=== PATIENT | female | born 1975 | race Caucasian/White ===

== ENCOUNTER 2017-01-20 09:11 | Emergency (ER) | payer OTHER ==
[2017-01-20 09:14] VITALS: BP 122/77; PULSE 87; TEMP 97.1
[2017-01-20 09:26] VITALS: RESP 16
[2017-01-20] MEDS ORDERED: IBUPROFEN 600 MG TAB PO STA (09:43)
--- NOTE | 2017-01-20 09:46 | ED ---
Headache HPI - General Chief Complaint: Headache Stated Complaint: headache Time Seen by Provider: 01/20/17 09:24 Source: RN notes reviewed Mode of arrival: ambulatory Limitations: no limitations - History of Present Illness Initial Comments: Patient is a 41-year-old female presents to the emergency room for evaluation of headache. Patient states she has had a headache for the past 4 days. Patient does states she is very congested. Patient states she is having a pressure-like sensation in her forehead. Patient denies loss of vision. Patient denies ear pain. Patient denies ringing in her ears. Patient denies throat pain. Patient denies chest pain or cough. Patient states she takes ALLERGY medication daily and decongestants with no relief of symptoms. Patient denies fevers or chills. Patient states saying 8 out of 10 headache. Patient denies taking any Tylenol or Motrin. Patient denies paresthesias. Patient denies weakness or unilateral weakness. Patient denies nausea or vomiting. - Related Data Previous Rx's Medication Instructions Recorded Cyclobenzaprine [Flexeril] 10 mg PO TID PRN #15 tab 06/06/16 Hydrocodone/Acetaminophen [Butler 1 tab PO Q6HR PRN #20 tab 06/06/16 5-325] methylPREDNISolone [Medrol Dose 4 mg PO DIRECTED #1 pack 06/06/16 Pack] Amoxicillin/Potassium Clav 1 each PO Q12HR #20 tab 01/20/17 [Augmentin 875-125 Tablet] methylPREDNISolone Dose Pack 4 mg PO DIRECTED #21 package 01/20/17 [Medrol Dose Pack] Allergies Allergy/AdvReac Type Severity Reaction Status Date / Time prochlorperazine Allergy Unknown Verified 01/20/17 09:14 [From Compazine] Review of Systems ROS Statement: Those systems with pertinent positive or pertinent negative responses have been documented in the HPI. ROS Other: All systems not noted in ROS Statement are negative. Past Medical History Past Medical History: Asthma Additional Past Medical History / Comment(s): bulging discs History of Any Multi-Drug Resistant Organisms: None Reported Past Surgical History: Appendectomy, Orthopedic Surgery, Tubal Ligation Additional Past Surgical History / Comment(s): d & c bunionectomy Past Psychological History: Depression Smoking Status: Never smoker Past Alcohol Use History: None Reported Past Drug Use History: None Reported General Exam - General Exam Comments Initial Comments: sitting in exam room, no acute distress. Limitations: no limitations General appearance: alert, in no apparent distress Head exam: Present: atraumatic, normocephalic, normal inspection Eye exam: Present: normal appearance, PERRL, EOMI Pupils: Present: normal accommodation ENT exam: Present: TM's normal bilaterally, normal external ear exam, other ( tenderness on palpating over frontal sinus and bilateral maxillary sinusitis) Expanded Mouth exam: Present: normal external inspection Teeth exam: Present: normal inspection Throat exam: normal inspection Course Vital Signs 01/20/17 01/20/17 09:12 09:21 Temperature 97.1 F L Pulse Rate 87 Respiratory 18 16 Rate Blood Pressure 122/77 O2 Sat by Pulse 95 Oximetry Medical Decision Making - Medical Decision Making Patient is a 41-year-old female presents to emergency room for admission headache. Patient's symptoms consistent with sinus pressure like headache. Placed patient on Augmentin and Medrol Dosepak and have her follow up with primary care provider. Patient states she understands everything that was discussed with her. Return parameters discussed. Case discussed with Dr. Carlson. Disposition Clinical Impression: Sinusitis Disposition: HOME SELF-CARE Condition: Good Instructions: Rhinosinusitis (ED) Additional Instructions: Take antibiotics as directed. Take Medrol Dosepak as directed. Take ibuprofen as needed for pain. Continue taking decongestants and ALLERGY medications. Please follow up with primary care provider in 1-2 days. If any new symptom arises or symptoms worsen, return to ER as soon as possible. Prescriptions: Amoxicillin/Potassium Clav [Augmentin 875-125 Tablet] 1 each PO Q12HR #20 tab methylPREDNISolone Dose Pack [Medrol Dose Pack] 4 mg PO DIRECTED #21 package Referrals: Shakeel Ngo MD [Primary Care Provider] - 1-2 days Time of Disposition: 09:44
== END 2017-01-20 09:59 | disposition home or self-care (01) ==
LOC: EC 09:11
DX: J32.0 Chronic maxillary sinusitis (principal); Z88.8 Allergy status to other drugs, medicaments and biological substances
CPT/HCPCS: 99283

== ENCOUNTER → 2017-02-16 | Outpatient (CLI) | payer OTHER ==
--- NOTE | 2017-02-16 11:21 | CT ---
EXAMINATION TYPE: CT sinus wo con DATE OF EXAM: 02/16/2017 COMPARISON: NONE HISTORY: 42-year-old female headache and eye pain, evaluate for sinusitis. CT DLP: 578 mGycm Automated exposure control for dose reduction was used. TECHNIQUE: Noncontrast axial views of the paranasal sinuses were obtained. Coronal reconstructions pe rformed. FINDINGS: Mild mucosal thickening within the frontal sinuses. Near complete opacification of the anterior left ethmoid air cells, moderate mucosal thickening posteriorly left ethmoid air cells and mild to moderat e within the right ethmoid air cells. The sphenoid sinuses are clear. Mild to moderate mucosal thickening throughout the bilateral maxillary sinuses. Mucosal thickening extends throughout the left nasal cavity with rightward nasal septal deviation. There appears to be previous bilateral maxillary antrectomies. No air-fluid levels. Reactive geoffrey- osteogenesis is not seen. There is no destruction of the osseous smith of the paranasal sinuses. The imaged brain and orbits are normal in appearance. Mastoid air cells and middle ear cavities are well pneumatized. Reformatted images confirm above findings. IMPRESSION: 1. Suggestion of prior medial antrectomies with continued paranasal sinus disease. 2. There is severe mucosal thickening anterior left ethmoid air cells and mild to moderate throughout the remainder of the ethmoid air cells. Additional mild to moderate mucosal thickening within the ma xillary sinuses and mild within the frontal sinuses. 3. There is also moderate to severe mucosal thickening throughout the left nasal cavity along with sl ight rightward nasal septal deviation.
== END ==
LOC: RADCTMAIN 09:50
PROVIDERS: ATTEND Family Medicine
DX: J32.0 Chronic maxillary sinusitis (principal); J34.2 Deviated nasal septum
CPT/HCPCS: 70486

== ENCOUNTER 2017-05-19 10:38 | Emergency (ER) | payer OTHER ==
[2017-05-19] MEDS ORDERED: SODIUM CHLORIDE 0.9% 1,000 ML IV STA ×2 (10:57)
[2017-05-19] MEDS ORDERED: ACETAMINOPHEN TAB 500 MG TAB PO STA (10:57)
[2017-05-19] MEDS ORDERED: IPRATROPIUM 0.5 MG/2.5 ML NEBU INHALATION STA (11:04)
[2017-05-19] MEDS ORDERED: ALBUTEROL NEBULIZED 2.5 MG/3 ML INHALATION STA (11:04)
--- NOTE | 2017-05-19 11:08 | ED ---
General Adult HPI - General Chief complaint: Fever Stated complaint: POSS ADRENAL CRISIS Time Seen by Provider: 05/19/17 10:51 Source: patient, family, RN notes reviewed Mode of arrival: wheelchair Limitations: no limitations - History of Present Illness Initial comments: 42-year-old female with past medical history of lupus, asthma, remote history of adrenal crisis presents with multiple complaints. Patient complains of productive cough with green sputum. She reports fever yesterday of 102. She also has noted an abscess in her left axilla which has been worsening over the past week. This started as a small pimple and has progressed. There is significant pain and swelling in the area. Patient also complains of nausea vomiting and diarrhea. She's had these symptoms for the past 2 days. Several episodes of both vomiting and diarrhea. Denies constant abdominal pain does report some crampy abdominal pain. Patient was recently treated with steroids for an episode of hives. She is not currently on steroids per completed this treatment approximately one week ago. Patient also does report a mild headache. - Related Data Home Medications Medication Instructions Recorded Confirmed Cetirizine HCl [Zyrtec] 10 mg PO HS 05/19/17 05/19/17 Cholecalciferol [Vitamin D3] 4,000 unit PO HS 05/19/17 05/19/17 Mometasone/Formoterol [Dulera 200 2 puff INHALATION RT-BID 05/19/17 05/19/17 Mcg/5 Mcg Inhaler] Sertraline [Zoloft] 100 mg PO HS 05/19/17 05/19/17 Previous Rx's Medication Instructions Recorded Cephalexin [Keflex] 500 mg PO Q8HR #30 cap 05/19/17 Ondansetron Odt [Zofran Odt] 4 mg PO Q8HR PRN #10 tab 05/19/17 Sulfamethox-Tmp 800-160Mg [Bactrim 1 tab PO Q12HR #20 tab 05/19/17 DS 800-160 mg] Allergies Allergy/AdvReac Type Severity Reaction Status Date / Time prochlorperazine AdvReac Muscle Verified 05/19/17 11:13 [From Compazine] Spasms Review of Systems ROS Statement: Those systems with pertinent positive or pertinent negative responses have been documented in the HPI. ROS Other: All systems not noted in ROS Statement are negative. Past Medical History Past Medical History: Asthma Additional Past Medical History / Comment(s): bulging discs, lupus History of Any Multi-Drug Resistant Organisms: None Reported Past Surgical History: Appendectomy, Orthopedic Surgery, Tubal Ligation Additional Past Surgical History / Comment(s): d & c bunionectomy Past Psychological History: Depression Smoking Status: Never smoker Past Alcohol Use History: None Reported Past Drug Use History: None Reported General Exam Limitations: no limitations General appearance: alert, in distress Head exam: Present: atraumatic, normocephalic Eye exam: Present: normal appearance, PERRL ENT exam: Present: mucous membranes dry Respiratory exam: Present: wheezes, decreased breath sounds, prolonged expiratory. Absent: respiratory distress Cardiovascular Exam: Present: regular rate, normal rhythm GI/Abdominal exam: Present: soft. Absent: distended, tenderness, guarding Extremities exam: Present: normal inspection, normal capillary refill, other ( Left axilla, there is erythema, induration, swelling, no fluctuance. This is approximately 7 cm x 5 cm). Absent: pedal edema Neurological exam: Present: alert, oriented X3. Absent: motor sensory deficit Psychiatric exam: Present: normal affect, normal mood Skin exam: Present: warm, dry, intact. Absent: cyanosis, diaphoretic Course Vital Signs 05/19/17 05/19/17 05/19/17 10:42 10:45 11:52 Temperature 98.5 F Pulse Rate 93 90 Respiratory 20 Rate Blood Pressure 207/93 137/62 O2 Sat by Pulse 99 Oximetry 05/19/17 05/19/17 05/19/17 12:08 12:59 13:05 Temperature 97.9 F Pulse Rate 91 89 81 Respiratory 20 16 Rate Blood Pressure 123/65 115/57 O2 Sat by Pulse 98 96 Oximetry - Reevaluation(s) Reevaluation #1: 05/19/17 13:25 Patient's vital signs improved with IV hydration. On reevaluation she is feeling much better EKG Findings - EKG Comments: EKG Findings:: EKG shows normal sinus rhythm, ventricular rate 86, para over 114 , castration 88, QTC 437, no ST segment elevation or depression Medical Decision Making - Medical Decision Making 42-year-old female with history of asthma and lupus presenting with left axillary erythema and swelling. There is a area of swelling with induration, no fluctuance in the left axilla. This is approximately 7 x 5 cm. Bedside ultrasound is performed, is positive for soft tissue cobblestoning, no focal fluid collection, no drainable abscess. Patient also reported cough and nausea. Chest x-ray was obtained, negative for focal pneumonia. Urinalysis is negative for signs of urinary tract infection. Although there is history of fever, there is no fever while in the emergency department. On reevaluation after Tylenol and IV fluids patient is feeling better. Laboratory studies show a mildly elevated white blood cell count. Patient does have outpatient follow- up. She is instructed to apply warm compresses over the left axilla. She will be started on antibiotics for both staph and strep coverage. She will follow- up with her primary care within the next 2-3 days for reevaluation. She'll return to the emergency department with worsening symptoms, fever, or spreading of left axillary cellulitis. - Lab Data Result diagrams: 05/19/17 11:20 05/19/17 11:20 Lab Results 05/19/17 05/19/17 05/19/17 Range/Units 11:20 11:20 11:20 WBC 13.4 H (3.8-10.6) k/uL RBC 4.65 (3.80-5.40) m/uL Hgb 13.0 (11.4-16.0) gm/dL Hct 40.3 (34.0-46.0) % MCV 86.8 (80.0-100.0) fL MCH 28.0 (25.0-35.0) pg MCHC 32.3 (31.0-37.0) g/dL RDW 13.9 (11.5-15.5) % Plt Count 330 (150-450) k/uL Neutrophils % 75 % Lymphocytes % 13 % Monocytes % 7 % Eosinophils % 3 % Basophils % 0 % Neutrophils # 10.1 H (1.3-7.7) k/uL Lymphocytes # 1.8 (1.0-4.8) k/uL Monocytes # 0.9 (0-1.0) k/uL Eosinophils # 0.4 (0-0.7) k/uL Basophils # 0.1 (0-0.2) k/uL Sodium 137 (137-145) mmol/L Potassium 4.1 (3.5-5.1) mmol/L Chloride 107 (98-107) mmol/L Carbon Dioxide 21 L (22-30) mmol/L Anion Gap 9 mmol/L BUN 6 L (7-17) mg/dL Creatinine 0.56 (0.52-1.04) mg/dL Est GFR (MDRD) Af Amer >60 (>60 ml/min/1.73 sqM) Est GFR (MDRD) Non-Af >60 (>60 ml/min/1.73 sqM) Glucose 92 (74-99) mg/dL Plasma Lactic Acid Vikas 0.7 (0.7-2.0) mmol/L Calcium 8.7 (8.4-10.2) mg/dL Total Bilirubin 0.7 (0.2-1.3) mg/dL AST 18 (14-36) U/L ALT 24 (9-52) U/L Alkaline Phosphatase 65 (38-126) U/L Total Protein 6.8 (6.3-8.2) g/dL Albumin 3.8 (3.5-5.0) g/dL Urine Color Urine Appearance (Clear) Urine pH (5.0-8.0) Ur Specific [place] (1.001-1.035) Urine Protein (Negative) Urine Glucose (UA) (Negative) Urine Ketones (Negative) Urine Blood (Negative) Urine Nitrite (Negative) Urine Bilirubin (Negative) Urine Urobilinogen (<2.0) mg/dL Ur Leukocyte Esterase (Negative) Urine RBC (0-5) /hpf Urine WBC (0-5) /hpf Ur Squamous Epith Cells (0-4) /hpf Urine HCG, Qual (Not Detectd) 05/19/17 05/19/17 Range/Units 12:50 12:50 WBC (3.8-10.6) k/uL RBC (3.80-5.40) m/uL Hgb (11.4-16.0) gm/dL Hct (34.0-46.0) % MCV (80.0-100.0) fL MCH (25.0-35.0) pg MCHC (31.0-37.0) g/dL RDW (11.5-15.5) % Plt Count (150-450) k/uL Neutrophils % % Lymphocytes % % Monocytes % % Eosinophils % % Basophils % % Neutrophils # (1.3-7.7) k/uL Lymphocytes # (1.0-4.8) k/uL Monocytes # (0-1.0) k/uL Eosinophils # (0-0.7) k/uL Basophils # (0-0.2) k/uL Sodium (137-145) mmol/L Potassium (3.5-5.1) mmol/L Chloride (98-107) mmol/L Carbon Dioxide (22-30) mmol/L Anion Gap mmol/L BUN (7-17) mg/dL Creatinine (0.52-1.04) mg/dL Est GFR (MDRD) Af Amer (>60 ml/min/1.73 sqM) Est GFR (MDRD) Non-Af (>60 ml/min/1.73 sqM) Glucose (74-99) mg/dL Plasma Lactic Acid Vikas (0.7-2.0) mmol/L Calcium (8.4-10.2) mg/dL Total Bilirubin (0.2-1.3) mg/dL AST (14-36) U/L ALT (9-52) U/L Alkaline Phosphatase (38-126) U/L Total Protein (6.3-8.2) g/dL Albumin (3.5-5.0) g/dL Urine Color Light Yellow Urine Appearance Clear (Clear) Urine pH 7.0 (5.0-8.0) Ur Specific [place] 1.007 (1.001-1.035) Urine Protein Negative (Negative) Urine Glucose (UA) Negative (Negative) Urine Ketones Negative (Negative) Urine Blood Small H (Negative) Urine Nitrite Negative (Negative) Urine Bilirubin Negative (Negative) Urine Urobilinogen <2.0 (<2.0) mg/dL Ur Leukocyte Esterase Small H (Negative) Urine RBC 1 (0-5) /hpf Urine WBC 1 (0-5) /hpf Ur Squamous Epith Cells 1 (0-4) /hpf Urine HCG, Qual Not Detected (Not Detectd) Disposition Clinical Impression: Cellulitis Disposition: HOME SELF-CARE Condition: Good Instructions: Cellulitis (ED) Prescriptions: Cephalexin [Keflex] 500 mg PO Q8HR #30 cap Ondansetron Odt [Zofran Odt] 4 mg PO Q8HR PRN #10 tab PRN Reason: Vomiting Sulfamethox-Tmp 800-160Mg [Bactrim DS 800-160 mg] 1 tab PO Q12HR #20 tab Referrals: Shakeel Ngo MD [Primary Care Provider] - 1-2 days Time of Disposition: 13:29
[2017-05-19 11:43] LABS: Basophils # (A) 0.1 k/uL (0-0.2); Basophils % (A) 0 %; CH 29.2; CHCM 33.8; Eosinophils # (A) 0.4 k/uL (0-0.7); Eosinophils % (A) 3 %; HCT 40.3 % (34.0-46.0); HDW 2.31; Luc # (Auto) 0.11; Luc % (Auto) 1; Lymphocytes # (A) 1.8 k/uL (1.0-4.8); Lymphocytes % (A) 13 %; MCHC 32.3 g/dL (31.0-37.0); MCV 86.8 fL (80.0-100.0); Mean Platelet Volume 8.1; Monocytes # (A) 0.9 k/uL (0-1.0); Monocytes % (A) 7 %; Neutrophils # (A) 10.1 k/uL (1.3-7.7); Neutrophils % (A) 75 %; RBC 4.65 m/uL (3.80-5.40); RDW 13.9 % (11.5-15.5); WBC 13.4 k/uL (3.8-10.6); WBC (Perox) 13.95
[2017-05-19 11:52] LABS: ALT 24 U/L (9-52); AST 18 U/L (14-36); Alkaline Phosphatase 65 U/L (38-126); Anion Gap 9 mmol/L; Blood Urea Nitrogen 6 mg/dL (7-17); Calcium 8.7 mg/dL (8.4-10.2); Carbon Dioxide 21 mmol/L (22-30); Chloride 107 mmol/L (98-107); Glucose 92 mg/dL (74-99); Non-African American GFR(MDRD) >60 (>60 ml/min/1.73 sqM); Potassium 4.1 mmol/L (3.5-5.1); Sodium 137 mmol/L (137-145); Total Bilirubin 0.7 mg/dL (0.2-1.3); Total Protein 6.8 g/dL (6.3-8.2)
--- NOTE | 2017-05-19 12:27 | XR ---
EXAMINATION TYPE: XR chest 2V DATE OF EXAM: 05/19/2017 COMPARISON: NONE TECHNIQUE: PA and lateral views submitted. HISTORY: Fever and cough FINDINGS: The lungs are clear and there is no pneumothorax, pleural effusion, or focal pneumonia. Biapical pl eural thickening. Slight curvature the spine. No overt failure. IMPRESSION: 1. No acute process.
[2017-05-19 13:07] VITALS: BP 115/57; PULSE 81; RESP 16; TEMP 97.9
[2017-05-19 13:23] LABS: Appearance,Urine Clear (Clear); Bilirubin,Urine Negative (Negative); Glucose,Urine (UA) Negative (Negative); Ketones,Urine Negative (Negative); Leukocyte Esterase,Urine Small (Negative); Nitrite,Urine Negative (Negative); Particle Count 1127; Protein,Urine Negative (Negative); RBC,Urine 1 /hpf (0-5); Specific Gravity,Urine 1.007 (1.001-1.035); Squamous Epithelial Cell,Urine 1 /hpf (0-4); UA Billing (MACRO vs. MICRO) MICRO; Urobilinogen,Urine <2.0 mg/dL (<2.0); WBC,Urine 1 /hpf (0-5)
== END 2017-05-19 14:20 | disposition home or self-care (01) ==
LOC: EC 10:38
DX: L03.112 Cellulitis of left axilla (principal); R05 Cough; R11.2 Nausea with vomiting, unspecified; R19.7 Diarrhea, unspecified; R51 Headache; J44.9 Chronic obstructive pulmonary disease, unspecified; F32.9 Major depressive disorder, single episode, unspecified; Z90.49 Acquired absence of other specified parts of digestive tract; Z98.51 Tubal ligation status; Z79.51 Long term (current) use of inhaled steroids; Z79.899 Other long term (current) drug therapy; Z88.8 Allergy status to other drugs, medicaments and biological substances
CPT/HCPCS: 36415; 71020; 80053; 81001; 81025; 83605; 85025; 87040; 87086; 93005; 94640; 96360; 96361; 99284

== ENCOUNTER 2018-05-22 14:37 | Observation (INO) | payer OTHER ==
--- NOTE | 2018-05-22 14:52 | ED ---
General Adult HPI - General Chief complaint: Chest Pain Stated complaint: Chest pain Time Seen by Provider: 05/22/18 14:40 Source: patient, RN notes reviewed Mode of arrival: ambulatory Limitations: no limitations - History of Present Illness Initial comments: This is a 43-year-old female who presents emergency Department complaining of epigastric fullness seems to be progressing up into her chest. Patient states she's had this on and off for quite a while but not quite as bad as today. Patient states she had a cheeseburger for lunch and his symptoms started right after that. Patient states she is not nauseous she's not had any changes in her bowel habits. Patient denies any actual chest pain or discomfort. Patient denies any shortness of breath or difficulty breathing. Patient states to take a deep breath seems like it as to the pressure in the epigastric region but aside from that she has had no problems breathing. Patient denies any fever chills. Patient states her epigastric area is slightly tender to touch more so than it is normally. Patient denies any back pain. Patient denies any history of any heart disease. Patient denies any history of any gallbladder problems. - Related Data Home Medications Medication Instructions Recorded Confirmed Cetirizine HCl [Zyrtec] 10 mg PO HS 05/19/17 05/22/18 Mometasone/Formoterol [Dulera 200 2 puff INHALATION RT-BID 05/19/17 05/22/18 Mcg/5 Mcg Inhaler] Sertraline [Zoloft] 100 mg PO HS 05/19/17 05/22/18 Albuterol Sulfate [Proventil Hfa] 1 - 2 puff INHALATION RT-QID PRN 05/22/1810/08 Allergies Allergy/AdvReac Type Severity Reaction Status Date / Time prochlorperazine AdvReac Muscle Verified 05/22/18 14:56 [From Compazine] Spasms Review of Systems ROS Statement: Those systems with pertinent positive or pertinent negative responses have been documented in the HPI. ROS Other: All systems not noted in ROS Statement are negative. Past Medical History Past Medical History: Asthma Additional Past Medical History / Comment(s): bulging discs, lupus History of Any Multi-Drug Resistant Organisms: None Reported Past Surgical History: Appendectomy, Orthopedic Surgery, Tubal Ligation Additional Past Surgical History / Comment(s): d & c bunionectomy Past Psychological History: Depression Smoking Status: Never smoker Past Alcohol Use History: None Reported Past Drug Use History: None Reported General Exam - General Exam Comments Initial Comments: GENERAL: Patient is well-developed and well-nourished. Patient is nontoxic and well- hydrated and is in mild distress. ENT: Neck is soft and supple. No significant lymphadenopathy is noted. Oropharynx is clear. Moist mucous membranes. Neck has full range of motion without eliciting any pain. EYES: The sclera were anicteric and conjunctiva were pink and moist. Extraocular movements were intact and pupils were equal round and reactive to light. Eyelids were unremarkable. PULMONARY: Unlabored respirations. Good breath sounds bilaterally. No audible rales rhonchi or wheezing was noted. CARDIOVASCULAR: There is a regular rate and rhythm without any murmurs gallops or rubs. ABDOMEN: Mild epigastric tenderness. No palpable organomegaly was noted. There is no palpable pulsatile mass. SKIN: Skin is clear with no lesions or rashes and otherwise unremarkable. NEUROLOGIC: Patient is alert and oriented x3. Cranial nerves II through XII are grossly intact. Motor and sensory are also intact. Normal speech, volume and content. Symmetrical smile. MUSCULOSKELETAL: Normal extremities with adequate strength and full range of motion. No lower extremity swelling or edema. No calf tenderness. LYMPHATICS: No significant lymphadenopathy is noted PSYCHIATRIC: Normal psychiatric evaluation. Limitations: no limitations Course Vital Signs 05/22/18 05/22/18 05/22/18 14:40 15:00 15:06 Temperature 98.2 F Pulse Rate 75 Pulse Rate [ 74 Crystal Attacher ] Respiratory 18 Rate Blood Pressure 129/79 O2 Sat by Pulse 93 L 97 Oximetry Medical Decision Making - Medical Decision Making EKG shows normal sinus rhythm at 81 bpm SC interval 140 QRS 70 QT interval 396 QTC is 460. Patient's EKG shows no ST segment elevation or depression or T wave abnormalities are noted. - Lab Data Result diagrams: 05/22/18 15:00 05/22/18 15:00 Lab Results 05/22/18 05/22/18 05/22/18 Range/Units 15:00 15:00 15:00 WBC 7.1 (3.8-10.6) k/uL RBC 4.94 (3.80-5.40) m/uL Hgb 13.3 (11.4-16.0) gm/dL Hct 41.4 (34.0-46.0) % MCV 83.9 (80.0-100.0) fL MCH 27.0 (25.0-35.0) pg MCHC 32.2 (31.0-37.0) g/dL RDW 13.6 (11.5-15.5) % Plt Count 338 (150-450) k/uL Neutrophils % 52 % Lymphocytes % 33 % Monocytes % 5 % Eosinophils % 8 % Basophils % 1 % Neutrophils # 3.7 (1.3-7.7) k/uL Lymphocytes # 2.3 (1.0-4.8) k/uL Monocytes # 0.3 (0-1.0) k/uL Eosinophils # 0.6 (0-0.7) k/uL Basophils # 0.1 (0-0.2) k/uL PT (9.0-12.0) sec INR (<1.2) APTT (22.0-30.0) sec Sodium 141 (137-145) mmol/L Potassium 4.0 (3.5-5.1) mmol/L Chloride 109 H (98-107) mmol/L Carbon Dioxide 23 (22-30) mmol/L Anion Gap 9 mmol/L BUN 11 (7-17) mg/dL Creatinine 0.65 (0.52-1.04) mg/dL Est GFR (CKD-EPI)AfAm >90 (>60 ml/min/1.73 sqM) Est GFR (CKD-EPI)NonAf >90 (>60 ml/min/1.73 sqM) Glucose 97 (74-99) mg/dL Calcium 8.8 (8.4-10.2) mg/dL Magnesium 2.0 (1.6-2.3) mg/dL Total Bilirubin 0.3 (0.2-1.3) mg/dL AST 19 (14-36) U/L ALT 11 (9-52) U/L Alkaline Phosphatase 58 (38-126) U/L Total Creatine Kinase 60 (30-135) U/L CK-MB (CK-2) 0.4 (0.0-2.4) ng/mL CK-MB (CK-2) Rel Index 0.7 Troponin I <0.012 (0.000-0.034) ng/mL Total Protein 7.1 (6.3-8.2) g/dL Albumin 3.9 (3.5-5.0) g/dL Amylase 61 (30-110) U/L Lipase 154 (23-300) U/L 05/22/18 Range/Units 15:00 WBC (3.8-10.6) k/uL RBC (3.80-5.40) m/uL Hgb (11.4-16.0) gm/dL Hct (34.0-46.0) % MCV (80.0-100.0) fL MCH (25.0-35.0) pg MCHC (31.0-37.0) g/dL RDW (11.5-15.5) % Plt Count (150-450) k/uL Neutrophils % % Lymphocytes % % Monocytes % % Eosinophils % % Basophils % % Neutrophils # (1.3-7.7) k/uL Lymphocytes # (1.0-4.8) k/uL Monocytes # (0-1.0) k/uL Eosinophils # (0-0.7) k/uL Basophils # (0-0.2) k/uL PT 9.8 (9.0-12.0) sec INR 1.0 (<1.2) APTT 23.5 (22.0-30.0) sec Sodium (137-145) mmol/L Potassium (3.5-5.1) mmol/L Chloride (98-107) mmol/L Carbon Dioxide (22-30) mmol/L Anion Gap mmol/L BUN (7-17) mg/dL Creatinine (0.52-1.04) mg/dL Est GFR (CKD-EPI)AfAm (>60 ml/min/1.73 sqM) Est GFR (CKD-EPI)NonAf (>60 ml/min/1.73 sqM) Glucose (74-99) mg/dL Calcium (8.4-10.2) mg/dL Magnesium (1.6-2.3) mg/dL Total Bilirubin (0.2-1.3) mg/dL AST (14-36) U/L ALT (9-52) U/L Alkaline Phosphatase (38-126) U/L Total Creatine Kinase (30-135) U/L CK-MB (CK-2) (0.0-2.4) ng/mL CK-MB (CK-2) Rel Index Troponin I (0.000-0.034) ng/mL Total Protein (6.3-8.2) g/dL Albumin (3.5-5.0) g/dL Amylase (30-110) U/L Lipase (23-300) U/L Disposition Clinical Impression: Chest pain Disposition: ADMITTED IP TO THIS HOSP Referrals: Shakeel Ngo MD [Primary Care Provider] - 1-2 days Time of Disposition: 16:13
[2018-05-22 15:14] LABS: Basophils # (A) 0.1 k/uL (0-0.2); Basophils % (A) 1 %; Eosinophils # (A) 0.6 k/uL (0-0.7); Eosinophils % (A) 8 %; HCT 41.4 % (34.0-46.0); HGB 13.3 gm/dL (11.4-16.0); Lymphocytes # (A) 2.3 k/uL (1.0-4.8); Lymphocytes % (A) 33 %; MCHC 32.2 g/dL (31.0-37.0); MCV 83.9 fL (80.0-100.0); Mean Platelet Volume 7.5; Monocytes # (A) 0.3 k/uL (0-1.0); Monocytes % (A) 5 %; Neutrophils # (A) 3.7 k/uL (1.3-7.7); Neutrophils % (A) 52 %; Platelet Count 338 k/uL (150-450); RBC 4.94 m/uL (3.80-5.40); RDW 13.6 % (11.5-15.5); WBC 7.1 k/uL (3.8-10.6)
[2018-05-22 15:22] LABS: ALT 11 U/L (9-52); AST 19 U/L (14-36); Albumin 3.9 g/dL (3.5-5.0); Alkaline Phosphatase 58 U/L (38-126); Amylase 61 U/L (30-110); Anion Gap 9 mmol/L; Blood Urea Nitrogen 11 mg/dL (7-17); Calcium 8.8 mg/dL (8.4-10.2); Carbon Dioxide 23 mmol/L (22-30); Chloride 109 mmol/L (98-107); Glucose 97 mg/dL (74-99); Lipase 154 U/L (23-300); Sodium 141 mmol/L (137-145); Total Bilirubin 0.3 mg/dL (0.2-1.3); Total Protein 7.1 g/dL (6.3-8.2)
[2018-05-22 15:24] LABS: Partial Thromboplastin Time 23.5 sec (22.0-30.0); Prothrombin Time 9.8 sec (9.0-12.0)
--- NOTE | 2018-05-22 15:24 | XR ---
EXAMINATION TYPE: XR chest 2V DATE OF EXAM: 05/22/2018 COMPARISON: Prior chest x-ray 05/19/2017 HISTORY: Chest pain TECHNIQUE: Frontal and lateral views of the chest are obtained. FINDINGS: There is no focal air space opacity, pleural effusion, or pneumothorax seen. The cardiac silhouette size is within normal limits. There are overlying cardiac leads. Patient is rotated. Ther e is eventration of the right hemidiaphragm. Prominent lung volumes present suggesting COPD. The osse ous structures are intact. IMPRESSION: No acute cardiopulmonary process.
[2018-05-22 15:35] LABS: Creatine Kinase 60 U/L (30-135)
[2018-05-22 15:48] LABS: Creatine Kinase MB 0.4 ng/mL (0.0-2.4); Troponin I <0.012 ng/mL (0.000-0.034)
[2018-05-22] MEDS ORDERED: NITROGLYCERIN SL TABS 0.4 MG TAB SUBLINGUAL PRN (16:13)
[2018-05-22] MEDS ORDERED: NITROGLYCERIN OINT 1 INCH/GM PACKET TOPICAL STA (16:15)
--- NOTE | 2018-05-22 16:22 | XR ---
Abdomen HISTORY: Epigastric pain Frontal view of the abdomen submitted on 2 images, no comparisons There is a levoscoliosis in the lumbar spine. There are overlying cardiac leads. Lung bases are clear . There is no evident bowel obstruction or pneumoperitoneum. Phleboliths are noted in the pelvis. IMPRESSION: Nonobstructive bowel gas pattern.
--- NOTE | 2018-05-22 18:29 | HP ---
HISTORY AND PHYSICAL DATE OF ADMISSION: 05/22/2018 DATE OF SERVICE: 05/22/2018 PRESENTING COMPLAINT: Epigastric fullness. HISTORY OF PRESENTING COMPLAINT: This is a very pleasant 43-year-old patient who follows with Dr. Ngo. Chronic stable medical conditions include asthma, lupus, depression. The patient has noticed that she has been having a pressure or fullness in the epigastric area for a week. The patient does have persistent nausea, present for quite some time. This time she felt the episode was much worse after eating a burger, though patient denies any reflux symptoms. Denies any fever or chills. Denies any precordial pain. No shortness of breath. She thinks her asthma is stable. Denies any swelling of the lower extremities. The discomfort is limited to the upper abdomen/epigastric area. She also finds it more pronounced if she takes a deep breath. There is minimal cough, if any, and for that she presented to the ER. REVIEW OF SYSTEMS: CONSTITUTIONAL: None. HEENT: Some nasal stuffiness at times. RESPIRATORY: As above. CARDIOVASCULAR: No precordial pain. GASTROINTESTINAL: As above. GENITOURINARY: None. MUSCULOSKELETAL: None. DERMATOLOGICAL: None. HEMATOLOGICAL: None. LYMPHATICS: None. PSYCHIATRY: History of depression, controlled. NEUROLOGICAL: None. PAST MEDICAL HISTORY: 1. Asthma. 2. Bulging disc. 3. Lupus. 4. Depression. PAST SURGICAL HISTORY: 1. Appendectomy. 2. Tubal ligation. 3. D&C. 4. Bunionectomy. SOCIAL HISTORY: Lives with her kids. Does not smoke or drink alcohol. FAMILY HISTORY: Reviewed; noncontributory to presentation. HOME MEDICATIONS: 1. Zoloft 100 mg at bedtime. 2. Dulera 200/5 two puffs b.i.d. 3. Zyrtec 10 mg at bedtime. 4. Proventil 1-2 puffs q.i.d. p.r.n. ALLERGIES: COMPAZINE. PHYSICAL EXAMINATION: Temperature 98.8, pulse 87, respiration 18, blood pressure 113/64, pulse ox 99% on 2 L. GENERAL APPEARANCE: Well built; BMI 33.9. Lying in bed, comfortable. EYES: Pupils equal. Conjunctivae normal. HEENT: External appearance of nose and ears normal. Oral cavity normal. NECK: JVD not raised. Mass not palpable. RESPIRATORY: Effort normal. LUNGS: Fair air entry. CARDIOVASCULAR: First and second sounds normal. No edema. ABDOMEN: Mild epigastric tenderness. No guarding or rigidity. Liver and spleen not palpable. LYMPHATIC: No lymph node palpable in neck or axillae. PSYCHIATRY: Alert and oriented x3. Mood and affect normal. NEUROLOGICAL: Pupils equal. Cranial nerves grossly intact. Power and sensation grossly intact. INVESTIGATIONS: White count 7.1, hemoglobin 13.3, potassium 4. BUN and creatinine are normal. Troponin negative. EKG tracing, personally reviewed by me, shows normal sinus rhythm, non-specific T-wave changes. Chest x-ray film, personally reviewed by me, shows clear lung hickman. ASSESSMENT: 1. This is a patient who presents with about a few days' history of pressure in the epigastric area, sometimes worse with deep breathing. There is no leg swelling, no history of inactivity, but would like to rule out a pulmonary embolism. At the same time, given that patient has asthma, patient may be having silent reflux and could be having esophageal spasm; hence will give PPIs to see if the symptoms are better controlled. Given that patient is also having significant nausea present for quite some time and the epigastric discomfort, need to rule out gallbladder dysfunction. 2. Moderate persistent asthma, stable. 3. Chronic lupus, stable. 4. Depression not otherwise specified. 5. Obesity; body mass index 33.9. PLAN: At this point we will start the patient on Protonix 40 mg b.i.d. and liquid Tums. Will also do a CT angio of the chest to rule out pulmonary embolism and order a HIDA scan in the morning. GI consultation will be done. Given also some chest symptoms, though extremely unlikely, a cardiac opinion will be sought. Care was discussed with the patient. Questions were answered. MMODL / IJN: [id number] /
[2018-05-22] MEDS: SYMBICORT 160-4.5 MCG INHALER INHALATION SCH (19:58)
[2018-05-22] MEDS: CALCIUM CARBONATE LIQUID 500 MG/5 ML CUP PO SCH (20:28)
[2018-05-22] MEDS: PANTOPRAZOLE 40 MG TABLET PO SCH (20:31)
[2018-05-22] MEDS ORDERED: LORATADINE 10 MG TAB PO SCH (21:00)
[2018-05-22] MEDS ORDERED: SERTRALINE 100 MG TAB PO SCH (21:00)
[2018-05-22 21:01] LABS: Creatine Kinase 54 U/L (30-135)
[2018-05-22 21:13] LABS: Creatine Kinase MB 0.4 ng/mL (0.0-2.4); Troponin I <0.012 ng/mL (0.000-0.034)
--- NOTE | 2018-05-22 22:02 | CT ---
EXAMINATION TYPE: CT angio chest with contrast and with 3-D reconstruction renderings. DATE OF EXAM: 05/22/2018 6:36 PM COMPARISON: 12/14/2012 HISTORY: Chest pain and SOB CT DLP: 330.7 mGycm Automated exposure control for dose reduction was used. CONTRAST: CTA scan of the thorax is performed with IV Contrast, patient injected with 100 mL of Isovu e 370, pulmonary embolism protocol. 3-D reconstructions. FINDINGS: LUNGS: The lungs are grossly clear, there is no concerning parenchymal mass or nodule identified. T here is no pleural effusion or pneumothorax seen. The tracheobronchial tree is patent. MEDIASTINUM: There is satisfactory enhancement of the pulmonary artery and its branches, there is no CT evidence for pulmonary embolism. Aorta is unremarkable. There are no greater than 1 cm hilar or me diastinal lymph nodes. No cardiomegaly. No pericardial effusion is seen. OTHER: No additional significant abnormality is seen. IMPRESSION: NO ACUTE PROCESS.
[2018-05-23] MEDS ORDERED: NITROGLYCERIN OINT 1 INCH/GM PACKET TOPICAL SCH
[2018-05-23] MEDS ORDERED: ONDANSETRON 4 MG/2 ML VIAL IVP PRN (00:09)
[2018-05-23] MEDS ORDERED: ACETAMINOPHEN TAB 500 MG TAB PO PRN (00:10)
[2018-05-23 00:55] LABS: Cholesterol 235 mg/dL (<200); HDL Cholesterol 46 mg/dL (40-60); LDL Cholesterol,Calculated 150 mg/dL (0-99); Triglycerides 196 mg/dL (<150)
[2018-05-23 03:46] LABS: Creatine Kinase 51 U/L (30-135)
[2018-05-23 03:58] LABS: Creatine Kinase MB 0.3 ng/mL (0.0-2.4); Troponin I <0.012 ng/mL (0.000-0.034)
[2018-05-23 07:26] VITALS: RESP 18
--- NOTE | 2018-05-23 07:27 | CONS ---
CONSULTATION Mrs. Mazariegos is a 43-year-old female who is followed by Dr. Ngo and presented with symptoms of epigastric discomfort. The discomfort has been going on for a day, persistent, without any radiation. The patient is not feeling well and because of that she came into the emergency room. She is usually active physically, has no exertional chest pain. Has no dyspnea on exertion. No dizziness. No palpitation. No syncope. She denies any history of PND, orthopnea or significant peripheral edema and has no prior history of documented obstructive coronary artery disease. Her coronary risk factors are negative for hypertension, hyperlipidemia, or smoking. MEDICATION: Her medications include Zoloft, Dulera, Zyrtec, and Proventil. REVIEW OF SYSTEMS: RESPIRATORY SYSTEM: She has a history of bronchial asthma with occasional dyspnea on exertion, although it has been stable. GI SYSTEM: No recent GI bleeding. No peptic ulcer disease. No nausea, no vomiting. SYSTEM: No dysuria or hematuria. NERVOUS SYSTEM: No history of stroke or seizure. PHYSICAL EXAMINATION: She is a 43-year-old female, alert, oriented, in no apparent distress. Blood pressure is 118/70 with the heart rate in the 60s. HEAD: Normocephalic. EYES: Sclerae anicteric. NECK: Good upstroke. No bruit. No jugular venous distention. LUNGS: Clear to auscultation. HEART: Regular rate and rhythm S1, S2. No S3. No rub or murmur. ABDOMEN: Soft. Epigastric tenderness reproducing the pain. No organomegaly. EXTREMITIES: No edema. Intact distal pulses. LAB DATA: Lab data revealed troponin less than 0.012 for 3 samples. Cholesterol 235, LDL of 150. Amylase 61 L lipase 154. AST of 19, ALT of 11. Hemoglobin of 13.3. Potassium 4.0. EKG reveals sinus mechanism, normal axis and intervals. No acute changes. Abdominal x-ray revealed no acute process and her CT angiogram of the chest was unremarkable. IMPRESSION: 1. Epigastric discomfort. No evidence to suggest cardiac etiology. 2. History of bronchial asthma, stable. 3. History of lupus. RECOMMENDATION: From the cardiac standpoint, I do not see any evidence to suggest cardiac abnormality. I will obtain an echocardiogram with Doppler. Increase her level of activity. No further cardiac workup will be needed at this time. She has hyperlipidemia that needs to be followed as an outpatient after adjusting her dietary intake. If it persists, then medical treatment should be initiated. Thank you for this consult. We will follow with you. VINCE / MYRANDAN: [id number] /
[2018-05-23] MEDS: SYMBICORT 160-4.5 MCG INHALER INHALATION SCH (07:40)
[2018-05-23] MEDS ORDERED: LORazepam 0.5 MG TAB PO STA (08:12)
[2018-05-23] MEDS ORDERED: NAPROXEN 250 MG TAB PO STA (08:12)
[2018-05-23] MEDS: PANTOPRAZOLE 40 MG TABLET PO SCH (08:31)
[2018-05-23] MEDS: CALCIUM CARBONATE LIQUID 500 MG/5 ML CUP PO SCH ×2 (08:31→13:54)
[2018-05-23] MEDS ORDERED: ASPIRIN 325 MG TAB PO SCH (09:00)
--- NOTE | 2018-05-23 09:10 | US ---
EXAMINATION TYPE: US abdomen limited DATE OF EXAM: 05/23/2018 COMPARISON: Prior ultrasound 12/14/2012 CLINICAL HISTORY: assess gall bladder. Epigastric pain, NPO EXAM MEASUREMENTS: Liver Length: 15.5 cm Gallbladder Wall: 0.2 cm CBD: 0.6 cm CHD: 0.4 cm Right Kidney: 11.9 x 5.0 x 5.4 cm Pancreas: Echogenic. Main pancreatic duct = 2.1 mm. Tail obscured by overlying bowel gas Liver: wnl Gallbladder: wnl Evidence for sonographic Araujo's sign: neg CBD: Upper limits of normal in size CHD: wnl Right Kidney: wnl Right kidney shows normal cortical medullary differentiation. There is no ascites. IMPRESSION: Somewhat limited exam. Borderline enlarged common bile duct.
--- NOTE | 2018-05-23 11:25 | NM ---
EXAMINATION TYPE: NM hepatobiliary w CCK DATE OF EXAM: 05/23/2018 COMPARISON: Ultrasound abdomen 05/23/2018 HISTORY: Abnormal ultrasound abdomen and abdominal pain TECHNIQUE: After the intravenous administration of 5.1 mCi Tc 99m Mebrofenin hepatobiliary scintigrap hy is performed. Immediate images post injection. FINDINGS: There is satisfactory initial accumulation of tracer by the liver. The gallbladder is visualized wit hin 8 minutes. The small bowel activity is noted within 24 minutes. At one hour CCK was administere d, patient was injected with 1.9 mcg of Kinevac, and gallbladder ejection fraction is calculated at 1 4 %, abnormal low. IMPRESSION: Abnormal low gallbladder ejection fraction
--- NOTE | 2018-05-23 12:22 | P.CONS ---
History of Present Illness - Reason for Consult Consult date: 05/23/18 Epigastric pain Requesting physician: Brad Bueno - Chief Complaint Epigastric chest pain - History of Present Illness 43-year-old female with epigastric chest pain with abdominal bloatedness increased nonbloody bowel months x 2 months. Admission white count 7.1. Hemoglobin 13.3. INR 1.0. Platelets 338. BUN 11. Creatinine 0.6. Lipase 154. LFTs normal. No cardiac history. No changes in the color of bowel movements or urine. Epigastric chest pain does not necessarily worsen with food. No fever chills or weight loss. Intermittent nausea no emesis. CT chest no acute process. HIDA scan ordered results pending. Review of Systems Constitutional: Denies fever, chills, sweats, weight gain, or loss. HEENT: Negative for migraines, blurred vision or loss, earaches, drainage, tinnitus, oral mucosal lesions, dysphagia, or odynophagia. CARDIAC: Negative for chest pain, arrhythmias, or palpitation. RESPIRATORY: Negative for shortness of breath, hemoptysis, cough, or sputum production. GI: See HPI for pertinent findings. : Negative for hematuria, urgency, frequency, polyuria, or dysuria. GYNc: Denies possibility of . Negative vaginal discharge. MUSCULOSKELETAL: Negative for muscle aches, swelling, arthritis, and arthralgias. NEUROLOGIC: Negative for stroke or TIA. ENDOCRINE: Negative for thyroid problems. SKIN: Negative for rash or itching. PSYCHIATRIC: Negative history for depression and anxiety Past Medical History Past Medical History: Asthma Additional Past Medical History / Comment(s): bulging discs, lupus, age 13 had concussion, migraines History of Any Multi-Drug Resistant Organisms: None Reported Past Surgical History: Appendectomy, Orthopedic Surgery, Tubal Ligation Additional Past Surgical History / Comment(s): d & c bunionectomy , lt knee meniscus repair Past Anesthesia/Blood Transfusion Reactions: No Reported Reaction Additional Past Anesthesia/Blood Transfusion Reaction / Comm: has never received blood Smoking Status: Never smoker - Past Family History Father History Unknown: Yes Additional Family Medical History / Comment(s): pt stated she does'nt know her too well enough to know his hx Mother Family Medical History: Fibromyalgia Additional Family Medical History / Comment(s): pots syndrome Medications and Allergies Home Medications Medication Instructions Recorded Confirmed Type Cetirizine HCl [Zyrtec] 10 mg PO HS 05/19/17 05/22/18 History Mometasone/Formoterol [Dulera 200 2 puff INHALATION RT-BID 05/19/17 05/22/18 History Mcg/5 Mcg Inhaler] Sertraline [Zoloft] 100 mg PO HS 05/19/17 05/22/18 History Albuterol Sulfate [Proventil Hfa] 1 - 2 puff INHALATION RT-QID PRN 05/22/1810/08 History Allergies Allergy/AdvReac Type Severity Reaction Status Date / Time prochlorperazine AdvReac Muscle Verified 05/22/18 14:56 [From Compazine] Spasms Physical Exam Vitals: Vital Signs Temp Pulse Pulse Pulse Resp BP BP 05/23/18 08:00 68 05/23/18 07:15 98.2 F 68 18 114/71 05/23/18 03:33 98.0 F 68 16 118/77 05/22/18 23:42 98.3 F 71 16 119/72 05/22/18 23:23 18 05/22/18 19:14 98.1 F 69 16 127/75 05/22/18 17:45 98.2 F 69 18 139/76 05/22/18 17:28 98.8 F 87 18 113/64 05/22/18 16:21 82 18 121/61 05/22/18 15:06 74 05/22/18 15:00 05/22/18 14:40 98.2 F 75 18 129/79 Pulse Ox 05/23/18 08:00 05/23/18 07:15 97 05/23/18 03:33 95 05/22/18 23:42 96 05/22/18 23:23 05/22/18 19:14 96 05/22/18 17:45 98 05/22/18 17:28 99 05/22/18 16:21 96 05/22/18 15:06 05/22/18 15:00 97 05/22/18 14:40 93 L Intake and Output 05/22/18 05/23/18 05/23/18 22:59 06:59 14:59 Other: # Voids 1 General appearance: The patient is alert, oriented, in no acute distress. HET: Head is normocephalic and atraumatic. Pupils are equal and reactive. Oropharynx is clear without lesions. Neck: Supple without lymphadenopathy. Trachea midline. Heart: S1 S2. Regular rate and rhythm. Lungs: No crackles or wheezes are heard. Abdomen: Soft, mild midepigastric midsternal tenderness, nondistended with bowel sounds. No peritoneal signs. No palpable organomegaly or masses. Extremities: Normal skin color and turgor. No cyanosis, rash, ulceration, clubbing, or edema. Radial and pedal pulses are 2/4 bilaterally. Neurological: No focal deficits. Strength and sensation are grossly intact. Results CBC & Chem 7: 05/22/18 15:00 05/22/18 15:00 Labs: Abnormal Lab Results - Last 24 Hours (Table) 05/22/18 05/22/18 Range/Units 15:00 15:00 Chloride 109 H (98-107) mmol/L Triglycerides 196 H (<150) mg/dL Cholesterol 235 H (<200) mg/dL LDL Cholesterol, Calc 150 H (0-99) mg/dL Comments: HIDA pending CT scan - chest: report reviewed (Dr. Castrejon) Assessment and Plan (1) Epigastric pain Narrative/Plan: 43-year-old female admitted with increased abdominal bloatedness midepigastric chest pain with nonbloody looser bowel movements 2 months without weight loss fever or chills. Possible biliary pathology possible GERD Current Visit: Yes Status: Acute Code(s): R10.13 - EPIGASTRIC PAIN SNOMED Code(s): 54015201 (2) Chest pain Current Visit: Yes Status: Acute Code(s): R07.9 - CHEST PAIN, UNSPECIFIED SNOMED Code(s): 45321959 Plan: 1. HIDA scan if abnormal recommend general surgical consult. 2. Continue with nothing by mouth except medications. Protonix 40 mg daily. Inpatient EGD will be contingent on clinical course and results of HIDA scan. Thank you for this kind referral and the opportunity to participate in the care of your patient. This consultation was discussed with Dr. Castrejon. The impression and plan of care have been directed as dictated.
--- NOTE | 2018-05-23 14:16 | P.GSCN ---
<Katey Rahman - Last Filed: 05/23/18 14:03> History of Present Illness Consult date: 05/23/18 Reason for Consult: Epigastric pain History of present illness: 43-year-old female presented to the emergency room with a chief complaint of developing mid epigastric abdominal pain with bloating radiating to the right upper quadrant. Patient stated the symptoms have been intermittent for the last several months. Patient stated yesterday she ate a cheeseburger after eating a cheeseburger had intense epigastric pain with more bloating felt like she could not catch a breath. [place] tightness in the chest. Heme into the emergency room to be evaluated for the above-mentioned symptoms. Patient gives no history of gallbladder disease. In the emergency room patient had a computed tomography scan of the chest there is no evidence of a pulmonary emboli. Cardiology consultation was requested troponins were negative 3 cardiology felt the pain in the chest with atypical. underwent a HIDA scan May 23 abnormal low gallbladder ejection fraction 14%. Ultrasound of the abdomen limited exam. Borderline enlarged common bile duct noted no ascites. Liver enzymes were not elevated past medical history asthma with no evidence of an exacerbation Past surgical history orthopedic procedure appendectomy tubal ligation Review of Systems Essentially unremarkable except as mentioned in the present illness Past Medical History Past Medical History: Asthma Additional Past Medical History / Comment(s): bulging discs, lupus, age 13 had concussion, migraines History of Any Multi-Drug Resistant Organisms: None Reported Past Surgical History: Appendectomy, Orthopedic Surgery, Tubal Ligation Additional Past Surgical History / Comment(s): d & c bunionectomy , lt knee meniscus repair Past Anesthesia/Blood Transfusion Reactions: No Reported Reaction Additional Past Anesthesia/Blood Transfusion Reaction / Comm: has never received blood Smoking Status: Never smoker - Past Family History Father History Unknown: Yes Additional Family Medical History / Comment(s): pt stated she does'nt know her too well enough to know his hx Mother Family Medical History: Fibromyalgia Additional Family Medical History / Comment(s): pots syndrome Medications and Allergies Home Medications Medication Instructions Recorded Confirmed Type Cetirizine HCl [Zyrtec] 10 mg PO HS 05/19/17 05/22/18 History Mometasone/Formoterol [Dulera 200 2 puff INHALATION RT-BID 05/19/17 05/22/18 History Mcg/5 Mcg Inhaler] Sertraline [Zoloft] 100 mg PO HS 05/19/17 05/22/18 History Albuterol Sulfate [Proventil Hfa] 1 - 2 puff INHALATION RT-QID PRN 05/22/1810/08 History Allergies Allergy/AdvReac Type Severity Reaction Status Date / Time prochlorperazine AdvReac Muscle Verified 05/22/18 14:56 [From Compazine] Spasms Surgical - Exam Vital Signs Temp Pulse Resp BP Pulse Ox 98.2 F 75 18 129/79 93 L 05/22/18 14:40 05/22/18 14:40 05/22/18 14:40 05/22/18 14:40 05/22/18 14:40 GENERAL APPEARANCE: The patient is alert, oriented, in no acute distress. VITAL SIGNS: Reviewed HEENT: Head is normocephalic and atraumatic. Pupils are equal and reactive. The nares are patent. Oropharynx is clear without lesions. NECK: Supple without lymphadenopathy. Traches midline. HEART: S1, S2. Regular rate and rhythm. Denying chest pain no murmur LUNGS: No crackles or wheezes are heard. ABDOMEN: Soft mild tenderness to the mid epigastric area no nausea no vomiting nondistended with good bowel sounds. No peritoneal signs. No palpable organomegaly or masses. EXTREMITIES: Normal skin color and turgor. No cyanosis, rash, ulceration, clubbing or edema. Radial pedal pulses are 2/4 bilaterally. NEUROLOGICAL: No focal deficits. Strength and sensation are grossly intact. Results - Labs 05/22/18 15:00 05/22/18 15:00 Abnormal Lab Results - Last 24 Hours (Table) 05/22/18 05/22/18 Range/Units 15:00 15:00 Chloride 109 H (98-107) mmol/L Triglycerides 196 H (<150) mg/dL Cholesterol 235 H (<200) mg/dL LDL Cholesterol, Calc 150 H (0-99) mg/dL Diabetes panel 05/22/18 05/22/18 Range/Units 15:00 15:00 Sodium 141 (137-145) mmol/L Potassium 4.0 (3.5-5.1) mmol/L Chloride 109 H (98-107) mmol/L Carbon Dioxide 23 (22-30) mmol/L BUN 11 (7-17) mg/dL Creatinine 0.65 (0.52-1.04) mg/dL Glucose 97 (74-99) mg/dL Calcium 8.8 (8.4-10.2) mg/dL AST 19 (14-36) U/L ALT 11 (9-52) U/L Alkaline Phosphatase 58 (38-126) U/L Total Protein 7.1 (6.3-8.2) g/dL Albumin 3.9 (3.5-5.0) g/dL Triglycerides 196 H (<150) mg/dL HDL Cholesterol 46 (40-60) mg/dL Calcium panel 05/22/18 Range/Units 15:00 Calcium 8.8 (8.4-10.2) mg/dL Albumin 3.9 (3.5-5.0) g/dL Pituitary panel 05/22/18 Range/Units 15:00 Sodium 141 (137-145) mmol/L Potassium 4.0 (3.5-5.1) mmol/L Chloride 109 H (98-107) mmol/L Carbon Dioxide 23 (22-30) mmol/L BUN 11 (7-17) mg/dL Creatinine 0.65 (0.52-1.04) mg/dL Glucose 97 (74-99) mg/dL Calcium 8.8 (8.4-10.2) mg/dL Adrenal panel 05/22/18 Range/Units 15:00 Sodium 141 (137-145) mmol/L Potassium 4.0 (3.5-5.1) mmol/L Chloride 109 H (98-107) mmol/L Carbon Dioxide 23 (22-30) mmol/L BUN 11 (7-17) mg/dL Creatinine 0.65 (0.52-1.04) mg/dL Glucose 97 (74-99) mg/dL Calcium 8.8 (8.4-10.2) mg/dL Total Bilirubin 0.3 (0.2-1.3) mg/dL AST 19 (14-36) U/L ALT 11 (9-52) U/L Alkaline Phosphatase 58 (38-126) U/L Total Protein 7.1 (6.3-8.2) g/dL Albumin 3.9 (3.5-5.0) g/dL Assessment and Plan Assessment: Impression Present on admission chest pain atypical with cardiac enzymes negative CAT scan of the chest no evidence for pulmonary emboli Present on admission mid epigastric abdominal pain with bloating onset 2 months prior HIDA scan abnormal low gallbladder ejection fraction 14% Ultrasound of the gallbladder limited exam borderline-enlarged common bile duct Plan No evidence of an acute surgical abdomen Dietary consult low-fat diet From a surgical perspective okay to discharge home we'll see patient in the outpatient setting on Monday in the office to discuss the timing of the surgery Pain control Start low-fat diet DVT and GI prophylaxis Plan was discussed with the attending Surgical consultation dictated for Dr. Bronson The above impression and plan of care have been discussed and directed by signing physician. Katey Rahman nurse practitioner acting as scribe for signing physician. <Citlaly Kimball N - Last Filed: 05/23/18 20:51> Surgical - Exam Vital Signs Temp Pulse Resp BP Pulse Ox 98.2 F 75 18 129/79 93 L 05/22/18 14:40 05/22/18 14:40 05/22/18 14:40 05/22/18 14:40 05/22/18 14:40 Results - Labs 05/22/18 15:00 05/22/18 15:00 Abnormal Lab Results - Last 24 Hours (Table) 05/22/18 Range/Units 15:00 Triglycerides 196 H (<150) mg/dL Cholesterol 235 H (<200) mg/dL LDL Cholesterol, Calc 150 H (0-99) mg/dL Diabetes panel 05/22/18 Range/Units 15:00 Triglycerides 196 H (<150) mg/dL HDL Cholesterol 46 (40-60) mg/dL
[2018-05-23 15:03] VITALS: BMI 33.9
[2018-05-23 16:25] VITALS: BP 104/66; PULSE 69; TEMP 98.1
--- NOTE | 2018-05-23 16:29 | ECHOF ---
Referral Reason:cp MEASUREMENTS -------- HEIGHT: 165.1 cm WEIGHT: 92.5 kg BP: 118/77 RVIDd: 2.7 cm (< 3.3) IVSd: 1.1 cm (0.6 - 1.1) LVIDd: 4.8 cm (3.9 - 5.3) LVPWd: 1.1 cm (0.6 - 1.1) IVSs: 1.5 cm LVIDs: 3.4 cm LVPWs: 1.5 cm LA Diam: 3.3 cm (2.7 - 3.8) LAESV Index (A-L): 31.04 ml/m Ao Diam: 3.1 cm (2.0 - 3.7) AV Cusp: 2.1 cm (1.5 - 2.6) MV EXCURSION: 11.388 mm (> 18.000) MV EF SLOPE: 107 mm/s (70 - 150) EPSS: 0.7 cm MV E Pedro: 0.94 m/s MV DecT: 195 ms MV A Pedro: 0.57 m/s MV E/A Ratio: 1.66 RAP: 5.00 mmHg RVSP: 20.05 mmHg FINDINGS -------- Sinus rhythm. This was a technically good study. The left ventricular size is normal. There is borderline concentric left ventricular hypertrophy. Overall left ventricular systolic function is normal with, an EF between 55 - 60 %. The right ventricle is normal in size and function. LA is midly dilated 29-33ml/m2. The right atrium is normal in size. The aortic valve is trileaflet and appears structurally normal. The mitral valve is normal. There is trace mitral regurgitation. Mild tricuspid regurgitation present. Right ventricular systolic pressure is normal at < 35 mmHg. Trace/mild (physiologic) pulmonic regurgitation. The aortic root size is normal. Normal inferior vena cava with normal inspiratory collapse consistent with estimated right atrial pre ssure of 5 mmHg. There is no pericardial effusion. CONCLUSIONS -------- 1. Sinus rhythm. 2. This was a technically good study. 3. The left ventricular size is normal. 4. There is borderline concentric left ventricular hypertrophy. 5. Overall left ventricular systolic function is normal with, an EF between 55 - 60 %. 6. LA is midly dilated 29-33ml/m2. 7. The aortic valve is trileaflet and appears structurally normal. 8. The mitral valve is normal. 9. There is trace mitral regurgitation. 10. Mild tricuspid regurgitation present. 11. Right ventricular systolic pressure is normal at < 35 mmHg. 12. Trace/mild (physiologic) pulmonic regurgitation. 13. The aortic root size is normal. 14. Normal inferior vena cava with normal inspiratory collapse consistent with estimated right atrial pressure of 5 mmHg. 15. There is no pericardial effusion. INFORMATION ASSOC: Aure Rizzo RDCS
--- NOTE | 2018-05-23 20:57 | DS ---
DISCHARGE SUMMARY DATE OF ADMISSION: 05/22/18. DATE OF DISCHARGE: 05/23/18. FINAL DIAGNOSES: 1. Acute on chronic dyskinetic gallbladder disease that is possibly chronic cholecystitis causing persistent nausea. 2. Moderate persistent asthma, stable. 3. Chronic lupus, stable. 4. Depression, not otherwise specified. 5. Obesity, BMI 33.9. HOSPITAL COURSE: This patient presents with epigastric discomfort going on for some time. Also history of nausea, also had some pleuritic component to the same. Chest CT was done and PE was ruled out. The patient had minimum GERD symptoms. Patient was seen by Cardiology. 2D echocardiogram was unremarkable. EKG was unremarkable. HIDA scan was done that did show a dyskinetic gallbladder. I did discuss with Dr. Kimball earlier today. Plan to do surgery down the road. Talked to the patient and her mother. The patient is not having any GI and other GERD symptoms, hence antireflux measures will be discontinued. CONSULTATION: 1. Dr. Castrejon from GI. 2. Dr. Seo from Cardiology. 3. Dr. Kimball from General Surgery. PHYSICAL EXAMINATION: Temperature 98.2, pulse 53, respiration 18, blood pressure 123/65. ABDOMEN: Soft, minimal epigastric tenderness. DISCHARGE MEDICATIONS: 1. Zyrtec 10 mg q.h.s. 2. Dulera 200/5 2 puffs b.i.d. 3. Zoloft 100 mg p.o. q.h.s. 4. Proventil HFA 1-2 puffs q.i.d. p.r.n. FOLLOWUP: Follow up with Dr. Kimball on 05/29/18 at 9:00 a.m., follow up with Dr. Ngo in 1 week. Discussion and discharge planning more than 35 minutes. MMODL / IJN: [id number] /
== END 2018-05-23 17:20 | disposition home or self-care (01) ==
LOC: EC 14:37 → 3OBS 16:13
PROVIDERS: ADMIT Hospitalist; ATTEND Hospitalist
DX: K82.8 Other specified diseases of gallbladder (principal); R07.89 Other chest pain; J45.40 Moderate persistent asthma, uncomplicated; M32.9 Systemic lupus erythematosus, unspecified; F32.9 Major depressive disorder, single episode, unspecified; Z68.33 Body mass index [BMI] 33.0-33.9, adult; E66.9 Obesity, unspecified; Z79.51 Long term (current) use of inhaled steroids; Z79.899 Other long term (current) drug therapy; Z88.8 Allergy status to other drugs, medicaments and biological substances; Z90.89 Acquired absence of other organs; Z98.51 Tubal ligation status; Z87.820 Personal history of traumatic brain injury; Z82.69 Family history of other diseases of the musculoskeletal system and connective tissue; Z82.49 Family history of ischemic heart disease and other diseases of the circulatory system
CPT/HCPCS: 96374; 99285; 36415; 94640 ×2; 93005; 93306; 80061; 80053; 82150; 82550 ×2; 82553 ×2; 83690; 83735; 84484 ×2; 85025; 85610; 85730; 71046; 74018; 76705; 71275; 78227; G0378 ×2; A9537; J2405; J2805; Q9967

== ENCOUNTER 2018-08-15 06:07 | Day surgery (SDC) | payer OTHER ==
[2018-08-08 10:58] VITALS: BMI 35.7
[~2018-08-15 06:07] MED LIST: DEXAMETHASONE SOD PHOSPHATE 10 MG/ML 1 ML VIAL IV ONE; HEPARIN SODIUM,PORCINE 5,000 UNIT/ML 1 ML VIAL SQ ONE; LACTATED RINGERS 1,000 ML IV SCH; MIDAZOLAM 2 MG/2 ML VIAL IV PRN; ONDANSETRON 4 MG/2 ML VIAL IVP ONE; SCOPOLAMINE 1.5MG/72HR PATCH TRANSDERM ONE; ceFAZolin IN SWFI 2 GM/20 ML SYRINGE IVP ONE
[2018-08-15] MEDS ORDERED: BUPIVACAIN-EPI 0.25%-1:200,000 30 ML VIAL SQ ONE ×2 (07:37)
[2018-08-15] MEDS ORDERED: LIDOCAINE 1% INJ 10MG/ML (20 ML MDV) ONE (07:38)
[2018-08-15] MEDS ORDERED: ePHEDrine SULFATE/0.9% NACL/PF 50 MG/5 ML SYRINGE IV ONE ×2 (07:38)
[2018-08-15] MEDS ORDERED: NEOSTIGMINE 1 MG/ML 10 ML VIAL ONE (07:38)
[2018-08-15] MEDS ORDERED: fentaNYL (PF) 50 MCG/ML 2 ML AMP ONE (07:38)
[2018-08-15] MEDS ORDERED: PROPOFOL 10 MG/ML 20 ML VIAL IV ONE (07:38)
[2018-08-15] MEDS ORDERED: ROCURONIUM BROMIDE 10 MG/ML 10 ML VIAL IV ONE (07:38)
[2018-08-15] MEDS ORDERED: GLYCOPYRROLATE 0.2 MG/ML 2 ML VIAL ONE (07:38)
[2018-08-15] MEDS ORDERED: MIDAZOLAM 2 MG/2 ML VIAL ONE (07:38)
[2018-08-15] MEDS ORDERED: HYDROcodone/APAP 5-325MG 1 EACH TAB PO PRN (08:36)
[2018-08-15] MEDS ORDERED: NALOXONE 0.4 MG/ML 1 ML VIAL IV PRN (08:36)
--- NOTE | 2018-08-15 08:37 | P.OP ---
Date of Procedure: 08/15/18 Procedure(s) Performed: PREOPERATIVE DIAGNOSIS: Biliary dyskinesia POSTOPERATIVE DIAGNOSIS: Same PROCEDURE: Laparoscopic cholecystectomy SURGEON: Anson EBL: Minimal see anesthesia record ANESTHESIA: Gen. COMPLICATIONS: None OPERATIVE PROCEDURE: The patient was brought and placed on the operating room table in the supine position. The patient was placed under general anesthesia at that time. The abdomen was prepped and draped in the usual sterile fashion. A small vertical infraumbilical incision was made. The fascia was grasped with the Christian forceps. The fascia was retracted anteriorly. The Veress needle was advanced into the peritoneal cavity. The saline drop test was normal. Insufflation took place up to 15 mmHg. A 5 mm optical trocar was advanced and the peritoneal cavity. 2 additional 5 mm trochars were placed in the right upper quadrant under direct visualization. A 12 mm trocar was advanced into the epigastric incision site. The gallbladder was retracted superiorly and laterally. The peritoneum overlying the infundibulum was bluntly dissected. The patient's cystic duct was visualized. The junction between the cystic duct common and hepatic duct was identified. The cystic duct was then divided after placement of 3 12 mm clips on the patient's side and one on the specimen side. The cystic artery was identified and clipped as well. A small vessel was seen along the gallbladder fossa and clipped as well. The gallbladder was then removed from the liver bed using electrocautery. The gallbladder was then removed from the epigastric trocar site with an Endo Catch bag. The gallbladder fossa was irrigated with saline. There was no evidence of any bleeding or biliary drainage seen. The trochars were then removed. The fascia at the 12 millimeter site was closed using a Osvaldo- Irwin 0 Vicryl stitch. The skin at all 4 sites was closed using a 4-0 Monocryl stitch. Skin glue was utilized on the incision sites. At the end of this procedure the sponge and needle counts were correct. DISPOSITION: Stable to the recovery room
[2018-08-15] MEDS: HYDROmorphone 0.5 MG/0.5 ML SYRINGE IVP PRN ×2 (08:56→09:03)
[2018-08-15] MEDS ORDERED: KETOROLAC 30 MG/ML 1 ML VIAL IVP ONE (08:58)
[2018-08-15 09:10] VITALS: TEMP 97.2
[2018-08-15] MEDS: fentaNYL (PF) 50 MCG/ML 2 ML AMP IVP ONE ×2 (09:12→09:19)
[2018-08-15 10:21] VITALS: RESP 18
[2018-08-15 10:27] VITALS: BP 120/74; PULSE 87
== END 2018-08-15 10:55 | disposition home or self-care (01) ==
LOC: OR 06:07
PROVIDERS: ATTEND Surgery
DX: K81.1 Chronic cholecystitis (principal); K82.8 Other specified diseases of gallbladder; L02.31 Cutaneous abscess of buttock; J45.909 Unspecified asthma, uncomplicated; Z79.899 Other long term (current) drug therapy; Z88.8 Allergy status to other drugs, medicaments and biological substances
CPT/HCPCS: 81025; 88304; 47562; J2250; J1644; J1100; J2710; J2405; J2001; J3010; J1885; J2704; J1170; J0690

== ENCOUNTER 2018-08-17 10:32 | Emergency (ER) | payer OTHER ==
[2018-08-17] MEDS ORDERED: SODIUM CHLORIDE 0.9% 1,000 ML IV STA ×3 (10:51→11:44)
--- NOTE | 2018-08-17 11:00 | ED ---
General Adult HPI - General Chief complaint: Abdominal Pain Stated complaint: Pain/nausea/vomiting Source: patient, family Mode of arrival: ambulatory Limitations: no limitations - History of Present Illness Initial comments: Dictation was produced using [employer] dictation software. please excuse any grammatical, word or spelling errors. Chief Complaint: 43-year-old female past medical history of asthma and cholecystectomy 2 days ago presents with abdominal pain. History of Present Illness: She is a 43-year-old female presents with abdominal pain. Patient had laparoscopic cholecystectomy 2 days ago for abnormal gallbladder. She states she had a HIDA scan and had reduced contractility. Patient denies any history of surgery for acute cholecystitis. Patient states that after the surgery she's been having right upper quadrant pain. She states began getting worse. She called her surgeon today told to come to the emergency department. Patient states her pain is sharp and constant. Denies any exacerbating factors however it is better when she lies still. The ROS documented in this emergency department record has been reviewed and confirmed by me. Those systems with pertinent positive or negative responses have been documented in the HPI. All other systems are other negative and/or noncontributory. - Related Data Home Medications Medication Instructions Recorded Confirmed Cetirizine HCl [Zyrtec] 10 mg PO HS 05/19/17 08/17/18 Mometasone/Formoterol [Dulera 200 2 puff INHALATION RT-BID 05/19/17 08/17/18 Mcg/5 Mcg Inhaler] Sertraline [Zoloft] 100 mg PO HS 05/19/17 08/17/18 Albuterol Sulfate [Proventil Hfa] 1 - 2 puff INHALATION RT-QID PRN 05/22/18 Acetaminophen Tab [Tylenol Tab] 650 mg PO Q4H PRN 08/17/18 08/17/18 Rizatriptan Benzoate [Maxalt] 10 mg PO DAILY PRN 08/17/18 08/17/18 Allergies Allergy/AdvReac Type Severity Reaction Status Date / Time prochlorperazine AdvReac Muscle Verified 08/17/18 11:04 [From Compazine] Spasms Review of Systems ROS Statement: Those systems with pertinent positive or pertinent negative responses have been documented in the HPI. ROS Other: All systems not noted in ROS Statement are negative. Past Medical History Past Medical History: Asthma Additional Past Medical History / Comment(s): Bulging discs, Lupus, age 13 had concussion, migraines. History of Any Multi-Drug Resistant Organisms: None Reported Past Surgical History: Appendectomy, Cholecystectomy, Orthopedic Surgery, Tubal Ligation Additional Past Surgical History / Comment(s): D&C, bunionectomy, left knee meniscus repair, right ankle bone spur surgery. Past Anesthesia/Blood Transfusion Reactions: No Reported Reaction Additional Past Anesthesia/Blood Transfusion Reaction / Comment(s): Has never received blood. Past Psychological History: Depression Smoking Status: Never smoker Past Alcohol Use History: None Reported Past Drug Use History: None Reported - Past Family History Father History Unknown: Yes Additional Family Medical History / Comment(s): Pt stated she does'nt know her Dad well enough to know his hx. Mother Family Medical History: Fibromyalgia Additional Family Medical History / Comment(s): Pots Syndrome. General Exam - General Exam Comments Initial Comments: PHYSICAL EXAM: General Impression: Alert and oriented x3, not in acute distress HEENT: Normocephalic atraumatic, extra-ocular movements intact, pupils equal and reactive to light bilaterally, mucous membranes moist. Cardiovascular: Heart regular rate and rhythm, S1&S2 audible, no murmurs, rubs or gallops Chest: Lungs clear to auscultation bilaterally, no rhonchi, no wheeze, no rales Abdomen: Bowel sounds present, abdomen soft, non-tender, non-distended, no organomegaly, tenderness to the right upper quadrant Musculoskeletal: Pulses present and equal in all extremities, no peripheral edema Motor: Power 5/5 bilaterally, no focal deficits noted Neurological: CN II-XII grossly intact, no focal motor or sensory deficits noted Skin: Intact with no visualized rashes Psych: Normal affect and mood Limitations: no limitations Course Vital Signs 08/17/18 10:35 Temperature 97.7 F Pulse Rate 78 Respiratory 20 Rate Blood Pressure 129/70 O2 Sat by Pulse 96 Oximetry Medical Decision Making - Medical Decision Making ED course: 43-year-old female presents with postoperative pain status post laparoscopic cholecystectomy. Her general surgeon is Dr. Griggs. As upon arrival are within acceptable limits. Discussed patient case with Dr. Dumas who recommends giving patient intravenous fluids. He also wants her to receive Toradol.Patient given Toradol and morphine and Zofran. Patient reevaluated feels a lot better. Patient given fluids. Patient clear for discharge. Told to follow-up Dr. Griggs laboratory evaluation unremarkable. Patient appears well. Vital signs are stable. - Lab Data Result diagrams: 08/17/18 11:08 08/17/18 11:08 Lab Results 08/17/18 08/17/18 08/17/18 Range/Units 10:58 11:08 11:08 WBC 6.1 (3.8-10.6) k/uL RBC 4.55 (3.80-5.40) m/uL Hgb 12.6 (11.4-16.0) gm/dL Hct 38.7 (34.0-46.0) % MCV 85.1 (80.0-100.0) fL MCH 27.7 (25.0-35.0) pg MCHC 32.6 (31.0-37.0) g/dL RDW 14.0 (11.5-15.5) % Plt Count 303 (150-450) k/uL Neutrophils % 57 % Lymphocytes % 30 % Monocytes % 6 % Eosinophils % 5 % Basophils % 1 % Neutrophils # 3.4 (1.3-7.7) k/uL Lymphocytes # 1.8 (1.0-4.8) k/uL Monocytes # 0.4 (0-1.0) k/uL Eosinophils # 0.3 (0-0.7) k/uL Basophils # 0.0 (0-0.2) k/uL Sodium 142 (137-145) mmol/L Potassium 4.0 (3.5-5.1) mmol/L Chloride 109 H (98-107) mmol/L Carbon Dioxide 26 (22-30) mmol/L Anion Gap 7 mmol/L BUN 7 (7-17) mg/dL Creatinine 0.62 (0.52-1.04) mg/dL Est GFR (CKD-EPI)AfAm >90 (>60 ml/min/1.73 sqM) Est GFR (CKD-EPI)NonAf >90 (>60 ml/min/1.73 sqM) Glucose 95 (74-99) mg/dL Calcium 8.8 (8.4-10.2) mg/dL Total Bilirubin 0.4 (0.2-1.3) mg/dL AST 24 (14-36) U/L ALT 24 (9-52) U/L Alkaline Phosphatase 52 (38-126) U/L Total Protein 6.7 (6.3-8.2) g/dL Albumin 3.7 (3.5-5.0) g/dL Lipase 80 (23-300) U/L Urine Color Light Yellow Urine Appearance Clear (Clear) Urine pH 7.5 (5.0-8.0) Ur Specific [place] 1.004 (1.001-1.035) Urine Protein Negative (Negative) Urine Glucose (UA) Negative (Negative) Urine Ketones Negative (Negative) Urine Blood Small H (Negative) Urine Nitrite Negative (Negative) Urine Bilirubin Negative (Negative) Urine Urobilinogen <2.0 (<2.0) mg/dL Ur Leukocyte Esterase Large H (Negative) Urine RBC 1 (0-5) /hpf Urine WBC 2 (0-5) /hpf Ur Squamous Epith Cells 5 H (0-4) /hpf Urine Bacteria Few H (None) /hpf Urine Mucus Rare H (None) /hpf Disposition Clinical Impression: Post-operative pain Disposition: HOME SELF-CARE Condition: Good Is patient prescribed a controlled substance at d/c from ED?: No Referrals: Samuel Griggs MD [Medical Doctor] - 1-2 days Time of Disposition: 12:50
[2018-08-17] MEDS ORDERED: ONDANSETRON 4 MG/2 ML VIAL IVP STA (11:26)
[2018-08-17] MEDS ORDERED: MORPHINE SULFATE 4 MG/ML SYRINGE IVP PRN (11:26)
[2018-08-17 11:29] LABS: Basophils % (A) 1 %; Eosinophils # (A) 0.3 k/uL (0-0.7); Eosinophils % (A) 5 %; HCT 38.7 % (34.0-46.0); HGB 12.6 gm/dL (11.4-16.0); Lymphocytes # (A) 1.8 k/uL (1.0-4.8); Lymphocytes % (A) 30 %; MCH 27.7 pg (25.0-35.0); MCHC 32.6 g/dL (31.0-37.0); MCV 85.1 fL (80.0-100.0); Mean Platelet Volume 7.3; Monocytes # (A) 0.4 k/uL (0-1.0); Monocytes % (A) 6 %; Neutrophils # (A) 3.4 k/uL (1.3-7.7); Neutrophils % (A) 57 %; Platelet Count 303 k/uL (150-450); RBC 4.55 m/uL (3.80-5.40); WBC 6.1 k/uL (3.8-10.6)
[2018-08-17 11:34] LABS: Appearance,Urine Clear (Clear); Bacteria,Urine Few /hpf; Bilirubin,Urine Negative (Negative); Blood,Urine Small (Negative); Color,Urine Light Yellow; Glucose,Urine (UA) Negative (Negative); Ketones,Urine Negative (Negative); Leukocyte Esterase,Urine Large (Negative); Mucus,Urine Rare /hpf; Nitrite,Urine Negative (Negative); PH, Urine 7.5 (5.0-8.0); Protein,Urine Negative (Negative); RBC,Urine 1 /hpf (0-5); Specific Gravity,Urine 1.004 (1.001-1.035); Squamous Epithelial Cell,Urine 5 /hpf (0-4); Urobilinogen,Urine <2.0 mg/dL (<2.0); WBC,Urine 2 /hpf (0-5)
[2018-08-17 11:39] LABS: ALT 24 U/L (9-52); AST 24 U/L (14-36); Albumin 3.7 g/dL (3.5-5.0); Alkaline Phosphatase 52 U/L (38-126); Anion Gap 7 mmol/L; Blood Urea Nitrogen 7 mg/dL (7-17); Calcium 8.8 mg/dL (8.4-10.2); Carbon Dioxide 26 mmol/L (22-30); Chloride 109 mmol/L (98-107); Glucose 95 mg/dL (74-99); Lipase 80 U/L (23-300); Sodium 142 mmol/L (137-145); Total Bilirubin 0.4 mg/dL (0.2-1.3); Total Protein 6.7 g/dL (6.3-8.2)
[2018-08-17] MEDS ORDERED: KETOROLAC 30 MG/ML 1 ML VIAL IVP STA (11:45)
--- NOTE | 2018-08-17 11:53 | XR ---
Abdomen HISTORY: Pain Frontal view the abdomen submitted on 2 images correlated to prior exam 05/22/2018 Lung bases are clear. There is no evident pneumoperitoneum or bowel obstruction. Surgical clips prese nt in the right upper quadrant. There is a spinal curvature as on prior exam. Calcifications within t he pelvis felt likely represent phleboliths. IMPRESSION: Nonobstructive bowel gas pattern.
[2018-08-17 13:11] VITALS: BP 126/76; PULSE 68; RESP 18
[2018-08-17 13:41] VITALS: TEMP 97.8
== END 2018-08-17 13:40 | disposition home or self-care (01) ==
LOC: EC 10:32
DX: G89.18 Other acute postprocedural pain (principal); R10.11 Right upper quadrant pain; J45.909 Unspecified asthma, uncomplicated; F32.9 Major depressive disorder, single episode, unspecified; Z88.8 Allergy status to other drugs, medicaments and biological substances; Z79.51 Long term (current) use of inhaled steroids; Z79.899 Other long term (current) drug therapy; Z90.49 Acquired absence of other specified parts of digestive tract
CPT/HCPCS: 36415; 80053; 83690; 85025; 81001; 74018; 99284; 96374; 96375 ×2; 96361 ×2; J2270; J2405; J1885

== ENCOUNTER → 2018-12-26 | Outpatient (CLI) | payer OTHER ==
--- NOTE | 2018-12-26 11:10 | MM ---
Reason for exam: screening (asymptomatic). Baseline mammogram. History: Took hormonal contraceptives for 5 years. Physical Findings: Nurse did not find any significant physical abnormalities on exam. MG Screening Mammo w CAD Bilateral CC, MLO, and XCCL view(s) were taken. The breast tissue is heterogeneously dense. This may lower the sensitivity of mammography. There is no discrete abnormality. Axillary tail lymph node on the right breast. These results were verbally communicated with the patient and result sheet given to the patient on 12/26/18. ASSESSMENT: Negative, BI-RAD 1 RECOMMENDATION: Routine screening mammogram of both breasts in 1 year.
== END | disposition home or self-care (01) ==
LOC: RADMAMWWP 10:19
PROVIDERS: ATTEND Physician Assistant
DX: Z12.31 Encounter for screening mammogram for malignant neoplasm of breast (principal)
CPT/HCPCS: 77067

== ENCOUNTER 2019-05-31 16:57 | Emergency (ER) | payer OTHER ==
[2019-05-31] MEDS ORDERED: LIDOCAINE 5% PATCH TOPICAL STA (18:03)
--- NOTE | 2019-05-31 18:03 | ED ---
Back Pain HPI - General Chief Complaint: Back Pain/Injury Stated Complaint: Back pain Time Seen by Provider: 05/31/19 17:14 Source: patient Limitations: no limitations - History of Present Illness Initial Comments: Patient is a 43-year-old female With history of a herniated disc is presenting to the emergency department with a chief complaint of back pain. Patient reports she developed sudden onset of low back pain near the herniated disc after she attempted to bend over. Patient reports the pain is exacerbated with any movement. Patient reports the pain is alleviated when laying to the right side with a pillow between her legs. Patient did not have any radiation of the pain. Patient denies any numbness or tingling. Patient denies any urinary or bowel incontinence. Patient denies saddle anesthesia. Patient denies taking any medication to alleviate the symptoms. - Related Data Home Medications Medication Instructions Recorded Confirmed Cetirizine HCl [Zyrtec] 10 mg PO HS 05/19/17 08/17/18 Mometasone/Formoterol [Dulera 200 2 puff INHALATION RT-BID 05/19/17 08/17/18 Mcg/5 Mcg Inhaler] Sertraline [Zoloft] 100 mg PO HS 05/19/17 08/17/18 Albuterol Sulfate [Proventil Hfa] 1 - 2 puff INHALATION RT-QID PRN 05/22/18 08/17/18 Acetaminophen Tab [Tylenol Tab] 650 mg PO Q4H PRN 08/17/18 08/17/18 Rizatriptan Benzoate [Maxalt] 10 mg PO DAILY PRN 08/17/18 08/17/18 Previous Rx's Medication Instructions Recorded Cyclobenzaprine [Flexeril] 10 mg PO TID PRN #15 tab 05/31/19 Lidocaine 5% Patch [Lidoderm] 1 patch TOPICAL DAILY #5 patch 05/31/19 Allergies Allergy/AdvReac Type Severity Reaction Status Date / Time prochlorperazine AdvReac Muscle Verified 05/31/19 17:03 [From Compazine] Spasms Review of Systems ROS Statement: Those systems with pertinent positive or pertinent negative responses have been documented in the HPI. ROS Other: All systems not noted in ROS Statement are negative. Past Medical History Past Medical History: Asthma Additional Past Medical History / Comment(s): Bulging discs, Lupus, age 13 had concussion, migraines. History of Any Multi-Drug Resistant Organisms: None Reported Past Surgical History: Appendectomy, Cholecystectomy, Orthopedic Surgery, Tubal Ligation Additional Past Surgical History / Comment(s): D&C, bunionectomy, left knee meniscus repair, right ankle bone spur surgery. Past Anesthesia/Blood Transfusion Reactions: No Reported Reaction Additional Past Anesthesia/Blood Transfusion Reaction / Comment(s): Has never received blood. Past Psychological History: Depression Smoking Status: Never smoker Past Alcohol Use History: None Reported Past Drug Use History: None Reported - Past Family History Father History Unknown: Yes Additional Family Medical History / Comment(s): Pt stated she does'nt know her Dad well enough to know his hx. Mother Family Medical History: Fibromyalgia Additional Family Medical History / Comment(s): Pots Syndrome. General Exam Limitations: no limitations General appearance: alert, in no apparent distress Head exam: Present: atraumatic, normocephalic, normal inspection Eye exam: Present: normal appearance, PERRL, EOMI, periorbital swelling (Mild periorbital swelling on the left eye.). Absent: other (No eye entrapment bilaterally. No discharge) Pupils: Present: normal accommodation ENT exam: Present: normal exam, mucous membranes moist, normal external ear exam Neck exam: Present: normal inspection, full ROM Respiratory exam: Present: normal lung sounds bilaterally Cardiovascular Exam: Present: regular rate, normal rhythm, normal heart sounds Extremities exam: Present: normal inspection, full ROM Back exam: Present: normal inspection, tenderness, paraspinal tenderness (Right paraspinal tenderness in the sacral region), vertebral tenderness (Very mild lumbar tenderness). Absent: full ROM (Limited range of motion due to pain), CVA tenderness (R), CVA tenderness (L), muscle spasm Neurological exam: Present: alert, oriented X3 Psychiatric exam: Present: normal affect, normal mood Skin exam: Present: warm, intact, normal color Course Vital Signs 05/31/19 17:01 Temperature 97.7 F Pulse Rate 98 Respiratory 20 Rate Blood Pressure 120/69 O2 Sat by Pulse 96 Oximetry Medical Decision Making - Medical Decision Making patient is a 43-year-old female presenting to emergency Department with chief complaint of back pain. Patient has a history of a herniated disc and sees an legal process specialist. Patient had an MRI performed to confirm the diagnosis. Patient reports she developed gradual onset of pain in the right paraspinal lumbar region. Patient does have any radiation of the pain. No cauda equina. Physical examination it appears to be moderate tenderness near the right sacral region. No signs of sciatica. I suspect this to be an exacerbation of her herniated disc. Patient given a Lidoderm patch, Toradol and Flexeril. Patient reports improvement in symptoms, she has no pain at rest. Patient advised to alternate between Tylenol and ibuprofen for pain control. Patient discharged with a Tylenol 3started pack. Patient advised to take Flexeril as prescribed. Patient educated on side effects of the medication. Patient already has an established relationship with an legal process specialist who was suggested that she go see. Strict return parameters were thoroughly discussed with patient was understanding and agreeable. Case discussed with physician. Disposition Clinical Impression: Mechanical back pain Disposition: HOME SELF-CARE Condition: Stable Instructions (If sedation given, give patient instructions): Acute Low Back Pain (ED) Additional Instructions: Alternate between Tylenol and ibuprofen for pain control. Please take prescribed medication as directed. Please follow-up with orthopedics. Please return to emergency department if symptoms worsen. Is patient prescribed a controlled substance at d/c from ED?: No Referrals: Shakeel Ngo MD [Primary Care Provider] - 1-2 days Time of Disposition: 20:12
[2019-05-31] MEDS ORDERED: KETOROLAC 30 MG/ML 1 ML VIAL IM STA (18:04)
[2019-05-31] MEDS ORDERED: CYCLOBENZAPRINE 10 MG TAB PO STA (18:04)
[2019-05-31] MEDS ORDERED: Acetaminophen-Codeine 300-30mg TAB PO STA (19:21)
[2019-05-31] MEDS ORDERED: CYCLOBENZAPRINE 10MG STARTER 3 TAB BTL PO STA (20:12)
[2019-05-31] MEDS ORDERED: ACET/COD 300 MG/30 MG STARTER PACK 6 TAB BTL PO STA (20:12)
[2019-05-31 20:30] VITALS: BP 125/50; PULSE 84; RESP 18; TEMP 98
== END 2019-05-31 20:29 | disposition home or self-care (01) ==
LOC: EC 16:57
DX: M54.5 Low back pain (principal); H05.222 Edema of left orbit; J45.909 Unspecified asthma, uncomplicated; F32.9 Major depressive disorder, single episode, unspecified; Z88.8 Allergy status to other drugs, medicaments and biological substances; Z79.51 Long term (current) use of inhaled steroids; Z79.899 Other long term (current) drug therapy; Z82.69 Family history of other diseases of the musculoskeletal system and connective tissue
CPT/HCPCS: 99283; 96372; J1885

== ENCOUNTER → 2019-06-22 | Outpatient (CLI) | payer OTHER ==
--- NOTE | 2019-06-22 14:48 | MR ---
EXAMINATION TYPE: MR lumbar spine wo con DATE OF EXAM: 06/22/2019 COMPARISON: None HISTORY: Low back pain /Sacroiliitis TECHNIQUE: Multiplanar, multisequence images of the lumbar spine were acquired. Lumbar vertebra have normal alignment. Disc spaces are fairly normal. There is small posterior disc h erniation at L5-S1. There is developmentally adequate spinal canal and no spinal stenosis. Lumbar anamaria ral foramina appear widely patent. There is no compression fracture. Lumbar nerve roots appear normal . The sacroiliac joints are intact. There is no lumbar paraspinal mass. IMPRESSION: There is a small posterior L5-S1 lumbar disc herniation. Otherwise negative exam. I do not see a caus e for right-sided back pain.
== END ==
LOC: RADMRIMAIN 11:50
PROVIDERS: ATTEND Physical Medicine & Rehabilitation
DX: M51.17 Intervertebral disc disorders with radiculopathy, lumbosacral region (principal); M54.2 Cervicalgia; R29.2 Abnormal reflex
CPT/HCPCS: 72148

== ENCOUNTER 2019-07-21 18:15 | Observation (INO) | payer OTHER ==
[2019-07-21] MEDS ORDERED: IPRATROPIUM-ALBUTEROL 3 ML NEB INHALATION STA ×2 (18:32→20:42)
[2019-07-21] MEDS ORDERED: SODIUM CHLORIDE 0.9% 1,000 ML IV STA (18:32)
[2019-07-21] MEDS ORDERED: methylPREDNISolone SOD SUCCI 125 MG/2 ML VIAL IV STA (18:35)
--- NOTE | 2019-07-21 18:38 | ED ---
General Adult HPI - General Source: patient, RN notes reviewed, old records reviewed Mode of arrival: ambulatory Limitations: no limitations <Brittni Roger - Last Filed: 07/21/19 20:46> <Lili Pinon - Last Filed: 07/29/19 20:42> - General Chief complaint: Shortness of Breath Stated complaint: asthma Time Seen by Provider: 07/21/19 18:26 - History of Present Illness Initial comments: Patient is a pleasant 44-year-old female with a long-standing history of asthma. Patient reports that she's had worsening asthma flareups for the past 6 months and she has been out of her do Lyrica medication. She reports that she's been joint with insurance as to why she is unable to have this medication. They have placed the Patient on Symbicort but this is not maintaining her chronic asthma. Patient states that over the past week it started worsening shortness of breath and coughing. She reports a nonproductive cough. She denies any associated chest pain. She has been complaining of some intermittent left-sided facial swelling, and pain and jaw pain. She states that she's not been feeling sinus pressure any fevers. She denies any dental trauma or infected teeth. She reports that it's going down at this time is not too concerned about this.Patient denies any recent fever, chills, shortness of breath, chest pain, back pain, abdominal pain, nausea vomiting, numbness or tingling, dysuria or hematuria, constipation or diarrhea, headaches or visual changes, or any other current symptoms (Brittni Rgoer) - Related Data Home Medications Medication Instructions Recorded Confirmed Sertraline [Zoloft] 100 mg PO HS 05/19/17 07/21/19 Albuterol Sulfate [Proventil Hfa] 1 - 2 puff INHALATION RT-QID PRN 05/22/18 07/21/19 Acetaminophen Tab [Tylenol] 650 mg PO Q4H PRN 08/17/18 07/21/19 Rizatriptan Benzoate [Maxalt] 10 mg PO DAILY PRN 08/17/18 07/21/19 Albuterol Nebulized [Ventolin 2.5 mg INHALATION Q4H PRN 07/22/19 07/22/19 Nebulized] Previous Rx's Medication Instructions Recorded Budesonide-Formot 160-4.5 Mcg 2 puff INHALATION BID 30 Days #1 07/22/19 [Symbicort 160-4.5 Mcg Inhaler] inhaler Loratadine-Pseudoeph 5-120 mg 1 each PO Q12HR #14 tab.er.12h 07/23/19 [Claritin-D 12 Hour] Montelukast [Singulair] 10 mg PO HS #10 tab 07/23/19 predniSONE 10 mg PO DAILY #30 tab 07/23/19 Allergies Allergy/AdvReac Type Severity Reaction Status Date / Time prochlorperazine AdvReac Muscle Verified 07/22/19 10:58 [From Compazine] Spasms Review of Systems ROS Other: All systems not noted in ROS Statement are negative. <Brittni Roger - Last Filed: 07/21/19 20:46> ROS Other: All systems not noted in ROS Statement are negative. <Lili Pinon - Last Filed: 07/29/19 20:42> ROS Statement: Those systems with pertinent positive or pertinent negative responses have been documented in the HPI. Past Medical History Past Medical History: Asthma Additional Past Medical History / Comment(s): Bulging discs, Lupus, age 13 had concussion, migraines. History of Any Multi-Drug Resistant Organisms: None Reported Past Surgical History: Appendectomy, Cholecystectomy, Orthopedic Surgery, Tubal Ligation Additional Past Surgical History / Comment(s): D&C, bunionectomy, left knee meniscus repair, right ankle bone spur surgery. Past Anesthesia/Blood Transfusion Reactions: No Reported Reaction Additional Past Anesthesia/Blood Transfusion Reaction / Comment(s): Has never received blood. Past Psychological History: Depression Smoking Status: Never smoker Past Alcohol Use History: None Reported Past Drug Use History: None Reported - Past Family History Father History Unknown: Yes Additional Family Medical History / Comment(s): Pt stated she does'nt know her Dad well enough to know his hx. Mother Family Medical History: Fibromyalgia Additional Family Medical History / Comment(s): Pots Syndrome. <Brittni Roger - Last Filed: 07/21/19 20:46> General Exam Limitations: no limitations General appearance: alert, in no apparent distress Head exam: Present: atraumatic Eye exam: Present: normal appearance, PERRL, EOMI. Absent: scleral icterus, conjunctival injection, periorbital swelling ENT exam: Present: normal exam, mucous membranes moist Neck exam: Present: normal inspection. Absent: tenderness, meningismus, lympha denopathy Respiratory exam: Present: wheezes. Absent: normal lung sounds bilaterally (Diffuse wheezing), respiratory distress, rales, rhonchi, stridor Cardiovascular Exam: Present: regular rate, normal rhythm, normal heart sounds. Absent: systolic murmur, diastolic murmur, rubs, gallop, clicks GI/Abdominal exam: Present: soft, normal bowel sounds. Absent: distended, tenderness, guarding, rebound, rigid Extremities exam: Present: normal inspection, full ROM, normal capillary refill. Absent: tenderness, pedal edema, joint swelling, calf tenderness Neurological exam: Present: alert, oriented X3, CN II-XII intact Psychiatric exam: Present: normal affect, normal mood <Brittni Roger - Last Filed: 07/21/19 20:46> - General Exam Comments Initial Comments: Is a 44-year-old female. Alert and oriented 3. Patient appears in no significant distress. (Brittni Roger) Course Vital Signs 07/21/19 07/21/19 07/21/19 18:16 18:40 18:55 Temperature 98.5 F Pulse Rate 97 96 105 H Respiratory 20 Rate Blood Pressure 101/66 O2 Sat by Pulse 97 Oximetry 07/21/19 21:00 Temperature 98.6 F Pulse Rate 93 Respiratory 18 Rate Blood Pressure 126/58 O2 Sat by Pulse 98 Oximetry Medical Decision Making - Lab Data Result diagrams: 07/21/19 18:40 07/21/19 18:40 - Radiology Data Radiology results: report reviewed <Brittni Roger - Last Filed: 07/21/19 20:46> - Lab Data Result diagrams: 07/21/19 18:40 07/21/19 18:40 <Lili Pinon - Last Filed: 07/29/19 20:42> - Medical Decision Making The Patient is a 44-year-old female history of asthma. No abnormal distress at this time. Ferrous worsening shortness of breath, dry cough. At this time Patient was given double DuoNeb and 125 mg Benadryl. Reevaluation she continues to have some wheezing and shortness of breath. Patient attempted in the treatment from the bathroom became quite short of breath. Another breathing treatment was ordered. I discussed at this time with uncontrolled asthma exacerbation Patient will be admitted to hospital. Third DuoNeb treatment was completed. Patient will be admitted under Dr. gaspar with consult pulmonology. (Brittni Roger) I was available for consultation in the emergency department. The history and physical exam were done by the midlevel provider. I was consulted for this patients care. I reviewed the case with the midlevel provider and based on their presentation of the patient, I agree with the assessment, medical decision making and plan of care as documented. I agreed with hospital admission. I discussed the case with the admitting physician. Chart was dictated using [employer] dictation software. Attempts were made to correct any dictation errors however some typographical errors may persist. (Lili Pinon) - Lab Data Lab Results 07/21/19 07/21/19 07/21/19 Range/Units 18:40 18:40 18:40 WBC 7.6 (3.8-10.6) k/uL RBC 4.77 (3.80-5.40) m/uL Hgb 13.6 (11.4-16.0) gm/dL Hct 40.7 (34.0-46.0) % MCV 85.3 (80.0-100.0) fL MCH 28.4 (25.0-35.0) pg MCHC 33.3 (31.0-37.0) g/dL RDW 13.6 (11.5-15.5) % Plt Count 344 (150-450) k/uL Neutrophils % 46 % Lymphocytes % 37 % Monocytes % 6 % Eosinophils % 8 % Basophils % 1 % Neutrophils # 3.5 (1.3-7.7) k/uL Lymphocytes # 2.8 (1.0-4.8) k/uL Monocytes # 0.5 (0-1.0) k/uL Eosinophils # 0.6 (0-0.7) k/uL Basophils # 0.1 (0-0.2) k/uL PT 9.6 (9.0-12.0) sec INR 0.9 (<1.2) APTT 23.3 (22.0-30.0) sec Sodium 140 (137-145) mmol/L Potassium 3.9 (3.5-5.1) mmol/L Chloride 108 H (98-107) mmol/L Carbon Dioxide 22 (22-30) mmol/L Anion Gap 10 mmol/L BUN 9 (7-17) mg/dL Creatinine 0.51 L (0.52-1.04) mg/dL Est GFR (CKD-EPI)AfAm >90 (>60 ml/min/1.73 sqM) Est GFR (CKD-EPI)NonAf >90 (>60 ml/min/1.73 sqM) Glucose 108 H (74-99) mg/dL Calcium 9.1 (8.4-10.2) mg/dL Total Bilirubin 0.4 (0.2-1.3) mg/dL AST 24 (14-36) U/L ALT 24 (9-52) U/L Alkaline Phosphatase 58 (38-126) U/L Troponin I (0.000-0.034) ng/mL Total Protein 6.9 (6.3-8.2) g/dL Albumin 4.1 (3.5-5.0) g/dL 07/21/19 Range/Units 18:40 WBC (3.8-10.6) k/uL RBC (3.80-5.40) m/uL Hgb (11.4-16.0) gm/dL Hct (34.0-46.0) % MCV (80.0-100.0) fL MCH (25.0-35.0) pg MCHC (31.0-37.0) g/dL RDW (11.5-15.5) % Plt Count (150-450) k/uL Neutrophils % % Lymphocytes % % Monocytes % % Eosinophils % % Basophils % % Neutrophils # (1.3-7.7) k/uL Lymphocytes # (1.0-4.8) k/uL Monocytes # (0-1.0) k/uL Eosinophils # (0-0.7) k/uL Basophils # (0-0.2) k/uL PT (9.0-12.0) sec INR (<1.2) APTT (22.0-30.0) sec Sodium (137-145) mmol/L Potassium (3.5-5.1) mmol/L Chloride (98-107) mmol/L Carbon Dioxide (22-30) mmol/L Anion Gap mmol/L BUN (7-17) mg/dL Creatinine (0.52-1.04) mg/dL Est GFR (CKD-EPI)AfAm (>60 ml/min/1.73 sqM) Est GFR (CKD-EPI)NonAf (>60 ml/min/1.73 sqM) Glucose (74-99) mg/dL Calcium (8.4-10.2) mg/dL Total Bilirubin (0.2-1.3) mg/dL AST (14-36) U/L ALT (9-52) U/L Alkaline Phosphatase (38-126) U/L Troponin I <0.012 (0.000-0.034) ng/mL Total Protein (6.3-8.2) g/dL Albumin (3.5-5.0) g/dL 07/21/19 18:59 Sinus tachycardia with frequent PVCs, nonspecific T wave abnormality. Abnormal EKG. Ventricular rate of 102 bpm period. Intervals 118 ms. Respirations 84 ms. QT QTc is 386/503 ms. 07/21/19 20:45 (Brittni Roger) - Radiology Data Chest x-ray shows no active coronary parameters. Normal heart. No change. (Brittni Roger) Disposition Is patient prescribed a controlled substance at d/c from ED?: No Time of Disposition: 20:46 <Brittni Roger - Last Filed: 07/21/19 20:46> <Lili Pinon - Last Filed: 07/29/19 20:42> Clinical Impression: Asthma exacerbation Disposition: ADMITTED IP TO THIS HOSP Condition: Stable
[2019-07-21 18:59] LABS: Basophils # (A) 0.1 k/uL (0-0.2); Basophils % (A) 1 %; Eosinophils # (A) 0.6 k/uL (0-0.7); Eosinophils % (A) 8 %; HCT 40.7 % (34.0-46.0); HGB 13.6 gm/dL (11.4-16.0); INR 0.9 (<1.2); Lymphocytes # (A) 2.8 k/uL (1.0-4.8); Lymphocytes % (A) 37 %; MCH 28.4 pg (25.0-35.0); MCHC 33.3 g/dL (31.0-37.0); MCV 85.3 fL (80.0-100.0); Mean Platelet Volume 6.3; Monocytes # (A) 0.5 k/uL (0-1.0); Monocytes % (A) 6 %; Neutrophils # (A) 3.5 k/uL (1.3-7.7); Neutrophils % (A) 46 %; Partial Thromboplastin Time 23.3 sec (22.0-30.0); Platelet Count 344 k/uL (150-450); Prothrombin Time 9.6 sec (9.0-12.0); RBC 4.77 m/uL (3.80-5.40); RDW 13.6 % (11.5-15.5); WBC 7.6 k/uL (3.8-10.6)
[2019-07-21 19:00] LABS: ALT 24 U/L (9-52); AST 24 U/L (14-36); African American GFR (CKD) >90 (>60 ml/min/1.73 sqM); Albumin 4.1 g/dL (3.5-5.0); Alkaline Phosphatase 58 U/L (38-126); Anion Gap 10 mmol/L; Blood Urea Nitrogen 9 mg/dL (7-17); Calcium 9.1 mg/dL (8.4-10.2); Carbon Dioxide 22 mmol/L (22-30); Chloride 108 mmol/L (98-107); Glucose 108 mg/dL (74-99); Non-African American GFR(CKD) >90 (>60 ml/min/1.73 sqM); Potassium 3.9 mmol/L (3.5-5.1); Sodium 140 mmol/L (137-145); Total Bilirubin 0.4 mg/dL (0.2-1.3); Total Protein 6.9 g/dL (6.3-8.2)
--- NOTE | 2019-07-21 19:29 | XR ---
EXAMINATION TYPE: XR chest 2V DATE OF EXAM: 07/21/2019 COMPARISON: May 22, 2018 HISTORY: Short of breath TECHNIQUE: Frontal and lateral views of the chest are obtained. FINDINGS: Heart and mediastinum are normal. Lungs are clear. Diaphragm is normal. Bony thorax appear s normal. There are chest leads. IMPRESSION: No active cardiopulmonary disease. Normal heart. No change.
[2019-07-21] MEDS ORDERED: CYCLOBENZAPRINE 10 MG TAB PO PRN (21:00)
[2019-07-21] MEDS ORDERED: LORATADINE 10 MG TAB PO SCH (21:00)
[2019-07-21] MEDS: INSULIN ASPART (NovoLOG) 100 UNIT/ML VIAL SQ SCH (21:50)
[2019-07-21 21:54] LABS: Glucose,Whole Blood 123 mg/dL (75-99)
[2019-07-21] MEDS: SERTRALINE 100 MG TAB PO SCH (21:56)
[2019-07-21] MEDS: guaiFENesin 600 MG TABLET.ER PO SCH (21:56)
[2019-07-22] MEDS: methylPREDNISolone SOD SUCCI 125 MG/2 ML VIAL IV SCH ×4 (00:22→17:47)
[2019-07-22] MEDS: IPRATROPIUM-ALBUTEROL 3 ML NEB INHALATION PRN ×3 (01:37→09:19)
[2019-07-22 06:29] LABS: Glucose,Whole Blood 159 mg/dL (75-99)
[2019-07-22] MEDS: INSULIN ASPART (NovoLOG) 100 UNIT/ML VIAL SQ SCH ×4 (06:39→20:36)
[2019-07-22] MEDS ORDERED: BUDESONIDE 0.5 MG/2 ML NEBU INHALATION SCH (08:00)
[2019-07-22] MEDS ORDERED: SYMBICORT 160-4.5 MCG INHALER INHALATION SCH (08:00)
[2019-07-22] MEDS: guaiFENesin 600 MG TABLET.ER PO SCH ×2 (08:26→20:36)
[2019-07-22] MEDS: LIDOCAINE 5% PATCH TOPICAL SCH (08:31)
[2019-07-22] MEDS ORDERED: SUMAtriptan SUCCINATE 50 MG TAB PO PRN ×2 (09:00→13:47)
[2019-07-22] MEDS ORDERED: IPRATROPIUM-ALBUTEROL 3 ML NEB INHALATION PRN (11:24)
[2019-07-22] MEDS: ACETAMINOPHEN TAB 325 MG TAB PO PRN ×2 (12:05→20:37)
[2019-07-22 12:33] LABS: Glucose,Whole Blood 183 mg/dL (75-99)
[2019-07-22] MEDS ORDERED: RIZATRIPTAN 10 MG PO PRN (13:33)
[2019-07-22] MEDS: IPRATROPIUM-ALBUTEROL 3 ML NEB INHALATION SCH ×3 (13:37→19:48)
[2019-07-22] MEDS ORDERED: SUMAtriptan SUCCINATE 50 MG TAB PO STA (13:45)
[2019-07-22] MEDS: LORATADINE-PSEUDOEPH 5-120 MG 1 EACH TAB.ER.12H PO SCH ×2 (15:07→20:37)
--- NOTE | 2019-07-22 16:35 | P.CNPUL ---
History of Present Illness Consult date: 07/22/19 Requesting physician: Brad Bueno Reason for consult: dyspnea, asthma Chief complaint: Acute exacerbation of severe persistent bronchial asthma History of present illness: This is a 44-year-old white female patient of Dr. Ngo, who was diagnosed with chronic bronchial asthma at age 3, she had previously seen Dr. Lam in the pulmonary clinic 25 years ago, but she stopped following and her asthma was managed by her PCP. She states her symptoms were under good control while she was on Dulera, but a few years ago her insurance company stopped covering Dulera, and she needed preauthorization. Her breathing symptoms had progressively worsened, she was prescribed Symbicort 80-4.5, and she has a rescue inhaler and albuterol nebulized treatments. She was never intubated for asthma attack, but in the last week she has been having increased shortness of breath, nightly symptoms, last 2 days she had been so short of breath it was very difficult for her to even get to the bathroom. She is having coughing, but not bringing up any sputum, she denied any fever or chills. She is a nonsmoker, her common triggers include exposure to cats and dogs, which she has both in her house. Also change in weather, cold weather, dust. She also thinks she has mold in her house. Patient also complained of some swelling on the left side of her face and some swelling on the left side of her neck, which seems to have subsided, no difficulty swallowing. Chest x-ray was completed in the emergency department showing no active cardiopulmonary disease, normal size heart, EKG was completed today which showed sinus tachycardia with frequent PVCs, and nonspecific T-wave inversion in leads V3 through V6. Lab work showed a CBC within normal limits, requiring admission profile was within normal limits, sodium was 140, potassium is 3.9, chloride was 108, CO2 is 22, BUN was 9 creatinine is 0.51. Troponin was negative 1, LFTs were normal, she was started on IV steroids, nebulized bronchodilators, Symbicort, and we were consulted for acute exacerbation of severe persistent bronchial asthma Review of Systems All systems: negative Constitutional: Denies chills, Denies fever Eyes: denies blurred vision, denies pain Ears, nose, mouth and throat: Denies headache, Denies sore throat Cardiovascular: Denies chest pain, Denies shortness of breath Respiratory: Reports dyspnea, Denies cough Gastrointestinal: Denies abdominal pain, Denies diarrhea, Denies nausea, Denies vomiting Genitourinary: Denies dysuria, Denies hematuria Musculoskeletal: Denies myalgias Integumentary: Denies pruritus, Denies rash Neurological: Denies numbness, Denies weakness Psychiatric: Denies anxiety, Denies depression Endocrine: Denies fatigue, Denies weight change Past Medical History Past Medical History: Asthma Additional Past Medical History / Comment(s): Bulging discs, Lupus, age 13 had concussion, migraines. History of Any Multi-Drug Resistant Organisms: None Reported Past Surgical History: Appendectomy, Cholecystectomy, Orthopedic Surgery, Tubal Ligation Additional Past Surgical History / Comment(s): D&C, bunionectomy, left knee meniscus repair Past Anesthesia/Blood Transfusion Reactions: No Reported Reaction Additional Past Anesthesia/Blood Transfusion Reaction / Comment(s): Has never received blood. Past Psychological History: Depression Additional Psychological History / Comment(s): no current thought of wanting to harm self Smoking Status: Never smoker Past Alcohol Use History: None Reported Past Drug Use History: None Reported - Past Family History Father History Unknown: Yes Additional Family Medical History / Comment(s): Pt stated she does'nt know her Dad well enough to know his hx. Mother Family Medical History: Fibromyalgia Additional Family Medical History / Comment(s): Pots Syndrome Medications and Allergies Home Medications Medication Instructions Recorded Confirmed Type Cetirizine HCl [Zyrtec] 10 mg PO HS 05/19/17 07/21/19 History Mometasone/Formoterol [Dulera 200 2 puff INHALATION RT-BID 05/19/17 07/21/19 History Mcg/5 Mcg Inhaler] Sertraline [Zoloft] 100 mg PO HS 05/19/17 07/21/19 History Albuterol Sulfate [Proventil Hfa] 1 - 2 puff INHALATION RT-QID PRN 05/22/18 07/21/19 History Acetaminophen Tab [Tylenol Tab] 650 mg PO Q4H PRN 08/17/18 07/21/19 History Rizatriptan Benzoate [Maxalt] 10 mg PO DAILY PRN 08/17/18 07/21/19 History Albuterol Nebulized [Ventolin 2.5 mg INHALATION Q4H PRN 07/22/19 07/22/19 History Nebulized] Allergies Allergy/AdvReac Type Severity Reaction Status Date / Time prochlorperazine AdvReac Muscle Verified 07/22/19 10:58 [From Compazine] Spasms Physical Exam Vitals: Vital Signs Temp Pulse Pulse Resp BP BP Pulse Ox 07/22/19 13:47 84 07/22/19 13:37 80 07/22/19 12:17 98.7 F 91 20 144/71 95 07/22/19 09:36 78 07/22/19 09:19 76 07/22/19 08:06 97.7 F 100 20 132/70 95 07/22/19 08:00 16 07/22/19 05:46 80 07/22/19 05:36 84 07/22/19 04:31 97.9 F 91 22 125/75 95 07/22/19 01:49 64 07/22/19 01:37 58 L 07/22/19 00:27 98.9 F 79 24 118/68 94 L 07/21/19 21:30 98.6 F 74 26 H 128/83 94 L 07/21/19 21:16 94 07/21/19 21:06 92 07/21/19 21:00 98.6 F 93 18 126/58 98 07/21/19 18:55 105 H 07/21/19 18:40 96 07/21/19 18:16 98.5 F 97 20 101/66 97 Intake and Output 07/21/19 07/22/19 07/22/19 22:59 06:59 14:59 Intake Total 500 500 600 Balance 500 500 600 Intake: Oral 500 500 600 Other: # Voids 2 2 Weight 96.8 kg GENERAL EXAM: Alert, very pleasant, 44-year-old white female comfortable in no apparent distress. HEAD: Normocephalic/atraumatic. EYES: Normal reaction of pupils, equal size. Conjunctiva pink, sclera white. NOSE: Clear with pink turbinates. THROAT: No erythema or exudates. NECK: No masses, no JVD, no thyroid enlargement, no adenopathy. CHEST: No chest wall deformity. Symmetrical expansion. LUNGS: Equal air entry with diminished breath sounds, and prolongation of the expiratory phase of breathing, and faint end expiratory wheezes CVS: Regular rate and rhythm, normal S1 and S2, no gallops, no murmurs, no rubs ABDOMEN: Soft, nontender. No hepatosplenomegaly, normal bowel sounds, no guarding or rigidity. EXTREMITIES: No clubbing, no edema, no cyanosis, 2+ pulses and upper and lower extremities. MUSCULOSKELETAL: Muscle strength and tone normal. SPINE: No scoliosis or deformity SKIN: No rashes CENTRAL NERVOUS SYSTEM: Alert and oriented -3. No focal deficits, tone is normal in all 4 extremities. PSYCHIATRIC: Alert and oriented -3. Appropriate affect. Intact judgment and insight. Results - Laboratory Findings CBC and BMP: 07/21/19 18:40 07/21/19 18:40 PT/INR, D-dimer PT 9.6 sec (9.0-12.0) 07/21/19 18:40 INR 0.9 (<1.2) 07/21/19 18:40 Abnormal lab findings: Abnormal Labs 07/21/19 07/21/19 07/22/19 18:40 21:49 06:28 Chloride 108 H Creatinine 0.51 L Glucose 108 H POC Glucose (mg/dL) 123 H 159 H 07/22/19 12:30 Chloride Creatinine Glucose POC Glucose (mg/dL) 183 H - Diagnostic Findings Chest x-ray: report reviewed, image reviewed Additional studies: EKG reviewed Assessment and Plan Plan: Assessment: #1. Acute exacerbation of severe persistent bronchial asthma. Chest x-ray was reviewed and showed no acute cardiopulmonary process #2. Left-sided facial swelling and pain and swelling on the left side of her neck, improved #3. Migraine headaches #4. History of lupus #5. Depression Plan: Continue current medical treatment, will switch Symbicort the Pulmicort and Perforomist, continue IV steroids, will add Singulair, is x-ray reviewed and showed no acute pulmonary process, prescription will be sent for Symbicort 1604.5 micrograms inhaler to check cost and patient's coverage. Patient states her insurance no longer covers Dulera and patient has not had her Dulera in a l chong time. Otherwise patient has already showed improvements with her breathing, responded well to inpatient treatments, and can be considered for discharge tomorrow. She will need outpatient follow-up with Dr. Lam in the office in one to 2 weeks I performed a history & physical examination of the patient and discussed their management with my nurse practitioner, Malini Brink. I reviewed the nurse practitioner's note and agree with the documented findings and plan of care. Lung sounds are positive for diminished breath sounds. The findings and the impression was discussed with the patient. I attest to the documentation by the nurse practitioner. Time with Patient: Greater than 30
[2019-07-22 17:19] LABS: Glucose,Whole Blood 212 mg/dL (75-99)
--- NOTE | 2019-07-22 18:36 | P.HPIM ---
History of Present Illness H&P Date: 07/22/19 Chief Complaint: Short of breath, wheezing History of presenting complaint: This is a very pleasant 44-year-old patient of Dr. Ngo. Chronic stable medical conditions include pupils, depression, obesity. Patient is a long- standing history of asthma. There is symptoms have flared up for last 2 months off and on. Predominantly shortness of breath and wheezing. For last 3 days ago became much worse. Wheezing became more pronounced physical cough which is predominantly dry no chest congestion. No fever no chills. Appetite has been okay. Admitted with asthma exacerbation. Nobody at home is sick otherwise. Patient has multiple pets at home. Admitted and started on steroids bronchodilators. Mother at the bedside. Review of systems: GEN.: Tired EYES: None HEENT: None NECK: None RESPIRATORY: As above CARDIOVASCULAR: None GASTROINTESTINAL: None GENITOURINARY: None MUSCULOSKELETAL: None LYMPHATICS: None HEMATOLOGICAL: None PSYCHIATRY: None NEUROLOGICAL: None Social history: Does not smoke or or drink alcohol. Has children at home. Not employed. Family history: Reviewed, noncontributory to presentation Physical examination: VITAL SIGNS: 97.7, 100, 20, 132/70, 95% room air GENERAL: BMI 35.5, sitting up some wheezing. EYES: Pupils equal. Conjunctiva normal. HEENT: External appearance of nose and ears normal, oral cavity grossly normal. NECK: JVD not raised; masses not palpable. HEART: First and second heart sounds are normal; no edema. LUNGS:[ Respiratory rate increased, decreased breath sounds prolonged expiration. ABDOMEN: Soft, nontender, liver spleen not palpable, no masses palpable. PSYCH: Alert and oriented x3; mood and affect normal. NEUROLOGICAL: Cranial nerves grossly intact; no facial asymmetry, power and sensation grossly intact. LYMPHATICS: No lymph nodes palpable in the axilla and neck INVESTIGATIONS, reviewed in the clinical context: White count 7.6 hemoglobin 13.6 potassium 3.9 crit 0.5 Troponin I negative EKG tracing personally reviewed by me shows multiple PVCs Chest x-ray film personally reviewed by me-no obvious infiltrates Assessment: -Acute exacerbation of moderate persistent asthma -Obesity BMI 35.5 -Depression not otherwise specified -Multiple PVCs, precipitated by bronchodilators Plan: Patient started and IV Solu-Medrol, average bronchodilators. Patient is put on telemetry. Care was discussed with the patient and her family. Questions were answered. Pulmonary was consulted. Past Medical History Past Medical History: Asthma Additional Past Medical History / Comment(s): Bulging discs, Lupus, age 13 had concussion, migraines. History of Any Multi-Drug Resistant Organisms: None Reported Past Surgical History: Appendectomy, Cholecystectomy, Orthopedic Surgery, Tubal Ligation Additional Past Surgical History / Comment(s): D&C, bunionectomy, left knee meniscus repair Past Anesthesia/Blood Transfusion Reactions: No Reported Reaction Additional Past Anesthesia/Blood Transfusion Reaction / Comment(s): Has never received blood. Past Psychological History: Depression Additional Psychological History / Comment(s): no current thought of wanting to harm self Smoking Status: Never smoker Past Alcohol Use History: None Reported Past Drug Use History: None Reported - Past Family History Father History Unknown: Yes Additional Family Medical History / Comment(s): Pt stated she does'nt know her Dad well enough to know his hx. Mother Family Medical History: Fibromyalgia Additional Family Medical History / Comment(s): Pots Syndrome Medications and Allergies Home Medications Medication Instructions Recorded Confirmed Type Cetirizine HCl [Zyrtec] 10 mg PO HS 05/19/17 07/21/19 History Mometasone/Formoterol [Dulera 200 2 puff INHALATION RT-BID 05/19/17 07/21/19 History Mcg/5 Mcg Inhaler] Sertraline [Zoloft] 100 mg PO HS 05/19/17 07/21/19 History Albuterol Sulfate [Proventil Hfa] 1 - 2 puff INHALATION RT-QID PRN 05/22/18 07/21/19 History Acetaminophen Tab [Tylenol Tab] 650 mg PO Q4H PRN 08/17/18 07/21/19 History Rizatriptan Benzoate [Maxalt] 10 mg PO DAILY PRN 08/17/18 07/21/19 History Albuterol Nebulized [Ventolin 2.5 mg INHALATION Q4H PRN 07/22/19 07/22/19 History Nebulized] Budesonide-Formot 160-4.5 Mcg 2 puff INHALATION BID 30 Days #1 07/22/19 Rx [Symbicort 160-4.5 Mcg Inhaler] inhaler Allergies Allergy/AdvReac Type Severity Reaction Status Date / Time prochlorperazine AdvReac Muscle Verified 07/22/19 10:58 [From Compazine] Spasms Physical Exam Vitals: Vital Signs Temp Pulse Pulse Resp BP BP Pulse Ox 07/22/19 12:17 98.7 F 91 20 144/71 95 07/22/19 09:36 78 07/22/19 09:19 76 07/22/19 08:06 97.7 F 100 20 132/70 95 07/22/19 08:00 16 07/22/19 05:46 80 07/22/19 05:36 84 07/22/19 04:31 97.9 F 91 22 125/75 95 07/22/19 01:49 64 07/22/19 01:37 58 L 07/22/19 00:27 98.9 F 79 24 118/68 94 L 07/21/19 21:30 98.6 F 74 26 H 128/83 94 L 07/21/19 21:16 94 07/21/19 21:06 92 07/21/19 21:00 98.6 F 93 18 126/58 98 07/21/19 18:55 105 H 07/21/19 18:40 96 07/21/19 18:16 98.5 F 97 20 101/66 97 Intake and Output 07/21/19 07/22/19 07/22/19 22:59 06:59 14:59 Intake Total 500 500 300 Balance 500 500 300 Intake: Oral 500 500 300 Other: # Voids 2 1 Weight 96.8 kg Results CBC & Chem 7: 07/21/19 18:40 07/21/19 18:40 Labs: Abnormal Lab Results - Last 24 Hours (Table) 07/21/19 07/21/19 07/22/19 Range/Units 18:40 21:49 06:28 Chloride 108 H (98-107) mmol/L Creatinine 0.51 L (0.52-1.04) mg/dL Glucose 108 H (74-99) mg/dL POC Glucose (mg/dL) 123 H 159 H (75-99) mg/dL 07/22/19 Range/Units 12:30 Chloride (98-107) mmol/L Creatinine (0.52-1.04) mg/dL Glucose (74-99) mg/dL POC Glucose (mg/dL) 183 H (75-99) mg/dL
[2019-07-22] MEDS ORDERED: RX INFO: IV CONTRAST WAS GIVEN 1 EACH MISC MISCELLANE PRN (18:37)
[2019-07-22] MEDS: BUDESONIDE 1 MG/2 ML NEBU INHALATION SCH (19:48)
[2019-07-22] MEDS: FORMOTEROL FUMARATE 20 MCG/2 ML NEBU INHALATION SCH (19:48)
[2019-07-22 20:17] LABS: Glucose,Whole Blood 174 mg/dL (75-99)
[2019-07-22] MEDS: SERTRALINE 100 MG TAB PO SCH (20:37)
--- NOTE | 2019-07-22 20:53 | CT ---
EXAMINATION TYPE: CT angio chest DATE OF EXAM: 07/22/2019 COMPARISON: NONE HISTORY: SOB. hx of asthma. CT DLP: 434.6 mGycm. Automated Exposure Control for Dose Reduction was Utilized. CONTRAST: CTA scan of the thorax is performed with IV Contrast, patient injected with 75cc mL of Isovue 370, pu lmonary embolism protocol. MIP Images are created on CT scanner and reviewed. FINDINGS: LUNGS: The lungs are grossly clear, there is no concerning parenchymal mass or nodule identified. T here is no pleural effusion or pneumothorax seen. The tracheobronchial tree is patent. MEDIASTINUM: There is satisfactory enhancement of the pulmonary artery and its branches, there is no CT evidence for pulmonary embolism. There are no greater than 1 cm hilar or mediastinal lymph nodes. No cardiomegaly or pericardial effusion is seen. Few calcified mediastinal lymph nodes from prior granulomatous disease. OTHER: Gallbladder is surgically absent. Mild multilevel degenerative change of the spine. IMPRESSION: 1. No evidence of pulmonary embolus. 2. No acute pulmonary process.
[2019-07-22 20:58] VITALS: RESP 18
[2019-07-22] MEDS ORDERED: MONTELUKAST 10 MG TAB PO SCH (21:00)
[2019-07-23] MEDS: methylPREDNISolone SOD SUCCI 125 MG/2 ML VIAL IV SCH ×3 (00:12→13:02)
[2019-07-23 05:18] VITALS: BP 126/82; TEMP 98.2
[2019-07-23 06:57] LABS: Glucose,Whole Blood 132 mg/dL (75-99)
[2019-07-23] MEDS: IPRATROPIUM-ALBUTEROL 3 ML NEB INHALATION SCH ×3 (07:09→15:14)
[2019-07-23] MEDS: FORMOTEROL FUMARATE 20 MCG/2 ML NEBU INHALATION SCH (07:10)
[2019-07-23] MEDS: BUDESONIDE 1 MG/2 ML NEBU INHALATION SCH (07:10)
[2019-07-23] MEDS: INSULIN ASPART (NovoLOG) 100 UNIT/ML VIAL SQ SCH ×2 (07:56→13:02)
[2019-07-23] MEDS: guaiFENesin 600 MG TABLET.ER PO SCH (07:57)
[2019-07-23] MEDS: LIDOCAINE 5% PATCH TOPICAL SCH (07:58)
[2019-07-23] MEDS: LORATADINE-PSEUDOEPH 5-120 MG 1 EACH TAB.ER.12H PO SCH (07:58)
[2019-07-23] MEDS ORDERED: SUMAtriptan SUCCINATE 50 MG TAB PO PRN (08:00)
[2019-07-23 11:14] LABS: Glucose,Whole Blood 161 mg/dL (75-99)
--- NOTE | 2019-07-23 11:36 | P.PN ---
Subjective Progress Note Date: 07/23/19 Principal diagnosis: Acute exacerbation of severe persistent bronchial asthma. This is a 44-year-old white female patient of Dr. Ngo, who was diagnosed with chronic bronchial asthma at age 3, she had previously seen Dr. Lam in the pulmonary clinic 25 years ago, but she stopped following and her asthma was managed by her PCP. She states her symptoms were under good control while she was on Dulera, but a few years ago her insurance company stopped covering Dulera, and she needed preauthorization. Her breathing symptoms had progressively worsened, she was prescribed Symbicort 80-4.5, and she has a rescue inhaler and albuterol nebulized treatments. She was never intubated for asthma attack, but in the last week she has been having increased shortness of breath, nightly symptoms, last 2 days she had been so short of breath it was very difficult for her to even get to the bathroom. She is having coughing, but not bringing up any sputum, she denied any fever or chills. She is a nonsmoker, her common triggers include exposure to cats and dogs, which she has both in her house. Also change in weather, cold weather, dust. She also thinks she has mold in her house. Patient also complained of some swelling on the left side of her face and some swelling on the left side of her neck, which seems to have subsided, no difficulty swallowing. Chest x-ray was completed in the emergency department showing no active cardiopulmonary disease, normal size heart, EKG was completed today which showed sinus tachycardia with frequent PVCs, and nonspecific T-wave inversion in leads V3 through V6. Lab work showed a CBC within normal limits, requiring admission profile was within normal limits, sodium was 140, potassium is 3.9, chloride was 108, CO2 is 22, BUN was 9 creatinine is 0.51. Troponin was negative 1, LFTs were normal, she was started on IV steroids, nebulized bronchodilators, Symbicort, and we were consulted for acute exacerbation of severe persistent bronchial asthma Patient was reevaluated today on 07/23/2019, she is feeling much better, breathing a lot easier, except for intermittent coughing spells. CT angiogram of the chest was basically unremarkable. Patient has less wheezing, less shortness of breath, and overall she made a significant improvement since admission. Hence I feel the patient could be discharged home on prednisone burst and taper over the next 2 weeks starting at 40 mg daily antibiotics in the form of Zithromax, Symbicort 160/4.52 puffs twice a day, Singulair 10 mg daily, and albuterol 2 puffs 4 times a day when necessary. Patient is to remain on omeprazole or Protonix orally and she should have a follow-up with me in the next one week. Objective - Vital Signs Vital signs: Vital Signs Temp 98.2 F 07/23/19 05:00 Pulse 76 07/23/19 11:23 Resp 18 07/23/19 05:00 BP 126/82 07/23/19 05:00 Pulse Ox 95 07/23/19 05:00 Intake & Output 07/22/19 07/23/19 07/23/19 18:59 06:59 18:59 Intake Total 1000 Balance 1000 Intake: Oral 1000 Other: Voiding Method Toilet # Voids 2 2 - Exam Physical Exam: Revealed a 44-year-old female pleasant in no distress. Head: Atraumatic normocephalic. HEENT:[Neck is supple.] [No neck masses.] [No thyromegaly.] [No JVD.] Chest: [Clear throughout, no crackles, no rhonchi, no wheezes.] Cardiac Exam: [Normal S1 and S2, no S3 gallop, no murmur.] Abdomen: [Soft, nontender, no megaly, no rebound, no guarding, normal bowel s ounds.] Extremities: [No clubbing, no edema, no cyanosis.] Neurological Exam: [No focal neurologic deficit. Skin: No rashes.] - Labs CBC & Chem 7: 07/21/19 18:40 07/21/19 18:40 Labs: Abnormal Lab Results - Last 24 Hours (Table) 07/22/19 07/22/19 07/22/19 Range/Units 12:30 17:17 20:15 POC Glucose (mg/dL) 183 H 212 H 174 H (75-99) mg/dL 07/23/19 07/23/19 Range/Units 06:54 11:13 POC Glucose (mg/dL) 132 H 161 H (75-99) mg/dL Assessment and Plan Assessment: #1. Acute exacerbation of severe persistent bronchial asthma. Chest x-ray was reviewed and showed no acute cardiopulmonary process #2. Left-sided facial swelling and pain and swelling on the left side of her neck, improved #3. Migraine headaches #4. History of lupus #5. Depression Recommendation: Discussed with the patient all her medications, felt that the patient could be discharged home today, and see me in the office in one week. Again her discharge medication should include prednisone 40 mg tapered over 2 weeks, Zithromax, Singulair, Symbicort 160/4.52 puffs twice a day, albuterol 2 puffs 4 times a day when necessary, and must have follow-up with me in one week. Cleared for discharge today. Time with Patient: Less than 30
[2019-07-23 15:27] VITALS: PULSE 84
--- NOTE | 2019-07-26 15:25 | P.DS ---
Providers Date of admission: 07/21/19 20:45 Expected date of discharge: 07/23/19 Attending physician: Brad Bueno Consults: 07/21/19 20:46 Consult Physician Stat Consulting Provider: Janette Terrazas Consult Reason/Comments: ASthma exacerbation Do you want consulting provider notified?: Yes, Notify in am Primary care physician: Shakeel Ngo Hospital Course: Chief Complaint: Short of breath, wheezing History of presenting complaint: This is a very pleasant 44-year-old patient of Dr. Ngo. Chronic stable medical conditions include herniated disc, depression, obesity. Patient is a long-standing history of asthma. There is symptoms have flared up for last 2 months off and on. Predominantly shortness of breath and wheezing. For last 3 days ago became much worse. Wheezing became more pronounced ,l cough which is predominantly dry, no chest congestion. No fever no chills. Appetite has been okay. Admitted with asthma exacerbation. Nobody at home is sick otherwise. Patient has multiple pets at home. Admitted and started on steroids bronchodilators. . Doing better by the time of discharge. Symptoms greatly improved. Cleared by pulmonary to go home Consultation: Dr. Reyes from pulmonary Physical examination: VITAL SIGNS: 98.2, 95, 18, 126/82, 95% on room air GENERAL: Sitting up, comfortable EYES: Pupils equal. Conjunctiva normal. HEENT: External appearance of nose and ears normal, oral cavity grossly normal. NECK: JVD not raised; masses not palpable. HEART: First and second heart sounds are normal; no edema. LUNGS:[ Respiratory rate normal, decreased breath sounds. ABDOMEN: Soft, nontender, liver spleen not palpable, no masses palpable. PSYCH: Alert and oriented x3; mood and affect normal. INVESTIGATIONS, reviewed in the clinical context: White count 7.6 hemoglobin 13.6 potassium 3.9 crit 0.5 Troponin I negative EKG tracing personally reviewed by me shows multiple PVCs Chest x-ray film personally reviewed by me-no obvious infiltrates Chest CTA-negative for PE Assessment: -Acute exacerbation of moderate persistent asthma -Obesity BMI 35.5 -Depression not otherwise specified -Preventricular contractions Disposition: Home Patient Condition at Discharge: Stable Plan - Discharge Summary Discharge Rx Participant: No New Discharge Prescriptions: New Budesonide-Formot 160-4.5 Mcg [Symbicort 160-4.5 Mcg Inhaler] 2 puff INHALATION BID 30 Days #1 inhaler Loratadine-Pseudoeph 5-120 mg [Claritin-D 12 Hour] 1 each PO Q12HR #14 tab.er.12h predniSONE 10 mg PO DAILY #30 tab Montelukast [Singulair] 10 mg PO HS #10 tab Continue Sertraline [Zoloft] 100 mg PO HS Albuterol Sulfate [Proventil Hfa] 1 - 2 puff INHALATION RT-QID PRN PRN Reason: Shortness Of Breath Acetaminophen Tab [Tylenol] 650 mg PO Q4H PRN PRN Reason: Pain Rizatriptan Benzoate [Maxalt] 10 mg PO DAILY PRN PRN Reason: Migraine Headache Albuterol Nebulized [Ventolin Nebulized] 2.5 mg INHALATION Q4H PRN PRN Reason: Shortness Of Breath Discontinued Cetirizine HCl [Zyrtec] 10 mg PO HS Mometasone/Formoterol [Dulera 200 Mcg/5 Mcg Inhaler] 2 puff INHALATION RT-BID Discharge Medication List Sertraline [Zoloft] 100 mg PO HS 05/19/17 [History] Albuterol Sulfate [Proventil Hfa] 1 - 2 puff INHALATION RT-QID PRN 05/22/18 [History] Acetaminophen Tab [Tylenol] 650 mg PO Q4H PRN 08/17/18 [History] Rizatriptan Benzoate [Maxalt] 10 mg PO DAILY PRN 08/17/18 [History] Albuterol Nebulized [Ventolin Nebulized] 2.5 mg INHALATION Q4H PRN 07/22/19 [History] Budesonide-Formot 160-4.5 Mcg [Symbicort 160-4.5 Mcg Inhaler] 2 puff INHALATION BID 30 Days #1 inhaler 07/22/19 [Rx] Loratadine-Pseudoeph 5-120 mg [Claritin-D 12 Hour] 1 each PO Q12HR #14 tab.er.12h 07/23/19 [Rx] Montelukast [Singulair] 10 mg PO HS #10 tab 07/23/19 [Rx] predniSONE 10 mg PO DAILY #30 tab 07/23/19 [Rx] Follow up Appointment(s)/Referral(s): Malu Reyes MD [STAFF PHYSICIAN] - 08/09/19 10:30 am Shakeel Ngo MD [Primary Care Provider] - 07/25/19 10:40 am Patient Instructions/Handouts: Prednisone (By mouth), Loratadine/Pseudoephedrine (By mouth), Montelukast (By mouth), Budesonide/Formoterol (By breathing), Asthma (DC) Discharge Disposition: HOME SELF-CARE
== END 2019-07-23 16:26 | disposition home or self-care (01) ==
LOC: EC 18:15 → 6PED 20:45 → 3NMEDONC 07-22 13:56
PROVIDERS: ADMIT Hospitalist; ATTEND Hospitalist
DX: J45.41 Moderate persistent asthma with (acute) exacerbation (principal); E66.9 Obesity, unspecified; F32.9 Major depressive disorder, single episode, unspecified; G43.909 Migraine, unspecified, not intractable, without status migrainosus; I49.3 Ventricular premature depolarization; Z68.35 Body mass index [BMI] 35.0-35.9, adult; Z79.51 Long term (current) use of inhaled steroids; Z98.51 Tubal ligation status
CPT/HCPCS: 96376 ×2; 96361; 96374; 99285; 36415; 94640 ×5; 93005; 80053; 84484; 85025; 85610; 85730; 71046; 71275; G0378 ×4; J2930 ×3; Q9967

== ENCOUNTER 2019-08-23 20:50 | Inpatient (IN) | payer OTHER ==
[2019-08-23] MEDS ORDERED: IPRATROPIUM-ALBUTEROL 3 ML NEB INHALATION STA (21:31)
[2019-08-23] MEDS ORDERED: SODIUM CHLORIDE 0.9% 500 ML 500 ML IV STA (21:31)
[2019-08-23] MEDS ORDERED: methylPREDNISolone SOD SUCCI 125 MG/2 ML VIAL IV STA (21:31)
[2019-08-23] MEDS ORDERED: MAGNESIUM SULFATE-D5W PMX 1 GM in DEXTROSE/WATER 1 100ML.BAG IVPB ONE (21:32)
[2019-08-23 21:56] LABS: Basophils # (A) 0.1 k/uL (0-0.2); Basophils % (A) 1 %; Eosinophils # (A) 0.5 k/uL (0-0.7); Eosinophils % (A) 6 %; HCT 41.6 % (34.0-46.0); HGB 13.3 gm/dL (11.4-16.0); Lymphocytes # (A) 2.8 k/uL (1.0-4.8); Lymphocytes % (A) 35 %; MCH 27.2 pg (25.0-35.0); MCHC 31.9 g/dL (31.0-37.0); MCV 85.4 fL (80.0-100.0); Mean Platelet Volume 7.7; Monocytes # (A) 0.4 k/uL (0-1.0); Monocytes % (A) 4 %; Neutrophils # (A) 4.1 k/uL (1.3-7.7); Neutrophils % (A) 51 %; Platelet Count 303 k/uL (150-450); RBC 4.87 m/uL (3.80-5.40); RDW 13.4 % (11.5-15.5)
[2019-08-23 22:06] LABS: African American GFR (CKD) >90 (>60 ml/min/1.73 sqM); Albumin 4.3 g/dL (3.5-5.0); Anion Gap 7 mmol/L; Carbon Dioxide 24 mmol/L (22-30); Chloride 108 mmol/L (98-107); Glucose 98 mg/dL (74-99); Non-African American GFR(CKD) >90 (>60 ml/min/1.73 sqM); Sodium 139 mmol/L (137-145); Total Bilirubin 0.6 mg/dL (0.2-1.3); Total Protein 7.3 g/dL (6.3-8.2)
[2019-08-23 22:10] LABS: ALT 15 U/L (4-34); AST 31 U/L (14-36); Alkaline Phosphatase 53 U/L (38-126); Blood Urea Nitrogen 11 mg/dL (7-17); Potassium 4.7 mmol/L (3.5-5.1)
--- NOTE | 2019-08-23 22:42 | XR ---
EXAMINATION TYPE: XR chest 2V DATE OF EXAM: 08/23/2019 COMPARISON: 07/21/2019 HISTORY: Short of breath cough and wheezing. TECHNIQUE: 2 views FINDINGS: Heart and mediastinum are normal. Lungs are clear. Diaphragm is normal. Bony thorax appears normal. IMPRESSION: Normal chest. No change.
[2019-08-24] MEDS: IPRATROPIUM-ALBUTEROL 3 ML NEB INHALATION PRN ×5 (00:40→22:33)
--- NOTE | 2019-08-24 07:37 | ED ---
SOB HPI - General Chief Complaint: Upper Respiratory Infection Stated Complaint: SOB Time Seen by Provider: 08/23/19 21:14 Source: patient Mode of arrival: ambulatory Limitations: no limitations - History of Present Illness Initial Comments: Patient is a pleasant 44-year-old female nonsmoker with a history of asthma. Patient reports her asthma has previously been well controlled on inhalers however her insurance and stopped covering the inhalers that work for her and she has subsequently had multiple asthma exacerbations. Patient was admitted early in July for asthma exacerbation. She returns the ER today for persistent wheezing 2. Patient reports she's been using albuterol every 2 hours with only minimal relief. Using her Pulmicort at home with no improvement. She denies associated fevers, chills, bodyaches chest pain, palpitations, diaphoresis or lightheadedness. - Related Data Home Medications Medication Instructions Recorded Confirmed Sertraline [Zoloft] 100 mg PO HS 05/19/17 07/21/19 Albuterol Sulfate [Proventil Hfa] 1 - 2 puff INHALATION RT-QID PRN 05/22/18 07/21/19 Acetaminophen Tab [Tylenol] 650 mg PO Q4H PRN 08/17/18 07/21/19 Rizatriptan Benzoate [Maxalt] 10 mg PO DAILY PRN 08/17/18 07/21/19 Albuterol Nebulized [Ventolin 2.5 mg INHALATION Q4H PRN 07/22/19 07/22/19 Nebulized] Previous Rx's Medication Instructions Recorded Budesonide-Formot 160-4.5 Mcg 2 puff INHALATION BID 30 Days #1 07/22/19 [Symbicort 160-4.5 Mcg Inhaler] inhaler Loratadine-Pseudoeph 5-120 mg 1 each PO Q12HR #14 tab.er.12h 07/23/19 [Claritin-D 12 Hour] Montelukast [Singulair] 10 mg PO HS #10 tab 07/23/19 predniSONE 10 mg PO DAILY #30 tab 07/23/19 Allergies Allergy/AdvReac Type Severity Reaction Status Date / Time prochlorperazine AdvReac Muscle Verified 08/23/19 21:02 [From Compazine] Spasms Review of Systems ROS Statement: Those systems with pertinent positive or pertinent negative responses have been documented in the HPI. ROS Other: All systems not noted in ROS Statement are negative. Past Medical History Past Medical History: Asthma Additional Past Medical History / Comment(s): Bulging discs, Lupus, age 13 had concussion, migraines. History of Any Multi-Drug Resistant Organisms: None Reported Past Surgical History: Appendectomy, Cholecystectomy, Orthopedic Surgery, Tubal Ligation Additional Past Surgical History / Comment(s): D&C, bunionectomy, left knee meniscus repair Past Anesthesia/Blood Transfusion Reactions: No Reported Reaction Additional Past Anesthesia/Blood Transfusion Reaction / Comment(s): Has never received blood. Past Psychological History: Depression Additional Psychological History / Comment(s): no current thought of wanting to harm self Smoking Status: Never smoker Past Alcohol Use History: None Reported Past Drug Use History: None Reported - Past Family History Father History Unknown: Yes Additional Family Medical History / Comment(s): Pt stated she does'nt know her Dad well enough to know his hx. Mother Family Medical History: Fibromyalgia Additional Family Medical History / Comment(s): Pots Syndrome General Exam - General Exam Comments Initial Comments: Physical Exam GENERAL: Moderate respiratory distress HENT: Normocephalic, Atraumatic. EYES: PERRL, EOMI PULMONARY: Tachypnea with wheezing in all lung hickman CARDIOVASCULAR: There is a regular rate and rhythm without any murmurs gallops or rubs. ABDOMEN: Soft and nontender with normal bowel sounds. SKIN: Skin is clear with no lesions or rashes and otherwise unremarkable. : Deferred NEUROLOGIC: Patient is alert and oriented x3. Moving all extremities spontaneously MUSCULOSKELETAL: Normal extremities with adequate strength and full range of motion. No lower extremity swelling or edema. No calf tenderness. PSYCHIATRIC: Normal psychiatric evaluation. Limitations: no limitations Course Vital Signs 08/23/19 08/23/19 08/23/19 20:59 21:18 22:01 Temperature 98.5 F Pulse Rate 103 H 90 Respiratory 22 24 20 Rate Blood Pressure 113/73 O2 Sat by Pulse 97 Oximetry 08/23/19 08/24/19 08/24/19 22:30 00:12 00:40 Temperature Pulse Rate 94 82 96 Respiratory 20 18 Rate Blood Pressure 127/72 O2 Sat by Pulse 99 Oximetry 08/24/19 00:47 Temperature Pulse Rate 100 Respiratory Rate Blood Pressure O2 Sat by Pulse Oximetry Medical Decision Making - Medical Decision Making The patient was seen and evaluated history was obtained from the patient. This is a unfortunately poorly controlled asthmatic was having an asthma exacerbation despite using albuterol nebulizer every 2 hours prior to arrival. The triple Du oNeb, Solu-Medrol and magnesium were ordered upon arrival. Patient did have some transient improvement however subsequently again developed wheezing and shortness of breath. At this time I feel the patient warrants admission, [id number] breathing treatments, steroids, repeat labs and evaluation by pulmonology. Patient is agreeable. [facility] Patient was admitted on respiratory pathway. - Lab Data Result diagrams: 08/23/19 21:44 08/23/19 21:44 Lab Results 08/23/19 08/23/19 08/23/19 Range/Units 21:44 21:44 22:17 WBC 8.0 (3.8-10.6) k/uL RBC 4.87 (3.80-5.40) m/uL Hgb 13.3 (11.4-16.0) gm/dL Hct 41.6 (34.0-46.0) % MCV 85.4 (80.0-100.0) fL MCH 27.2 (25.0-35.0) pg MCHC 31.9 (31.0-37.0) g/dL RDW 13.4 (11.5-15.5) % Plt Count 303 (150-450) k/uL Neutrophils % 51 % Lymphocytes % 35 % Monocytes % 4 % Eosinophils % 6 % Basophils % 1 % Neutrophils # 4.1 (1.3-7.7) k/uL Lymphocytes # 2.8 (1.0-4.8) k/uL Monocytes # 0.4 (0-1.0) k/uL Eosinophils # 0.5 (0-0.7) k/uL Basophils # 0.1 (0-0.2) k/uL Sodium 139 (137-145) mmol/L Potassium 4.7 (3.5-5.1) mmol/L Chloride 108 H (98-107) mmol/L Carbon Dioxide 24 (22-30) mmol/L Anion Gap 7 mmol/L BUN 11 (7-17) mg/dL Creatinine 0.58 (0.52-1.04) mg/dL Est GFR (CKD-EPI)AfAm >90 (>60 ml/min/1.73 sqM) Est GFR (CKD-EPI)NonAf >90 (>60 ml/min/1.73 sqM) Glucose 98 (74-99) mg/dL Calcium 9.0 (8.4-10.2) mg/dL Magnesium 2.0 (1.6-2.3) mg/dL Total Bilirubin 0.6 (0.2-1.3) mg/dL AST 31 (14-36) U/L ALT 15 (4-34) U/L Alkaline Phosphatase 53 (38-126) U/L Total Protein 7.3 (6.3-8.2) g/dL Albumin 4.3 (3.5-5.0) g/dL Influenza Type A RNA Not Detected (Not Detectd) Influenza Type B (PCR) Not Detected (Not Detectd) Disposition Clinical Impression: Asthma exacerbation Disposition: ADMITTED IP TO THIS HOSP Condition: Serious Is patient prescribed a controlled substance at d/c from ED?: No
[2019-08-24] MEDS ORDERED: BUDESONIDE 0.5 MG/2 ML NEBU INHALATION SCH (08:00)
[2019-08-24] MEDS ORDERED: ACETAMINOPHEN TAB 325 MG TAB PO PRN (08:39)
[2019-08-24] MEDS ORDERED: predniSONE 20 MG TAB PO SCH (09:00)
[2019-08-24] MEDS ORDERED: SUMAtriptan SUCCINATE 50 MG TAB PO PRN (15:33)
[2019-08-24] MEDS ORDERED: HYDROcodone/APAP 5-325MG 1 EACH TAB PO PRN (15:33)
[2019-08-24] MEDS ORDERED: ALPRAZolam 0.25 MG TAB PO PRN (15:33)
--- NOTE | 2019-08-24 17:39 | CONS ---
CONSULTATION PULMONARY/CRITICAL CARE CONSULTATION: DATE OF SERVICE: 08/24/2019 REASON FOR CONSULTATION: Asthma exacerbation. 44-year-old female who was recently in the hospital with an asthma exacerbation. She apparently has had asthma since she was a young child. She states that her asthma has been poorly controlled recently. It is good when she is on Dulera. Unfortunately, Symbicort does not work well for her. Anyway, she comes in with complaints of increasing shortness of breath. She has chest tightness, wheezing, cough and minimal phlegm production. She was admitted the last time in early July and at that time saw Dr. Reyes. She has persistent wheezing which has gotten worse over the last couple of days and much more significant in the last 24 hours. She has chest tightness. She is coughing. She is producing some phlegm. No fever or chills. No nausea, vomiting or diarrhea. She seems to think she might have a sinus infection also. Her primary is Dr. Ngo. She has not seen any of us in the office as yet. MEDICATIONS: Include Zoloft, Proventil HFA, Tylenol, Maxalt, albuterol updrafts, Symbicort, loratadine/pseudoephedrine, Singulair, and prednisone. ALLERGIES: COMPAZINE. MEDICAL HISTORY: Primarily asthma as well as migraine cephalgia. She also suffers from depression. Other medical problems include lupus and a bulging disk. She also has a prior history of concussion when she was 13 years of age. SURGICAL HISTORY: Includes appendectomy, cholecystectomy, tubal ligation, D and C, bunionectomy, left knee meniscus repair. SOCIAL HISTORY: Significant in that she is a lifelong nonsmoker. Denies any alcohol or illicit drug use. FAMILY HISTORY: Reviewed. Father she does not know well and she does not know her dad's history. Mother apparently has fibromyalgia and POTS which is postural orthostatic tachycardia syndrome. REVIEW OF SYSTEMS: CONSTITUTIONAL: Negative. NEUROLOGIC: Negative. HEENT: Negative. CARDIOVASCULAR: Negative. PULMONARY: Shortness of breath, chest tightness, wheezing, cough, chest congestion and minimal phlegm production. GI: Negative. : Negative. RHEUMATOLOGIC: Negative. IMMUNOLOGIC: Negative. ENDOCRINOLOGIC: Negative. DERMATOLOGIC: Negative. PHYSICAL EXAMINATION: Current vital signs are reviewed. Temperature 98.3, heart rate 109, respiratory rate 17, blood pressure 116/72, mean 86, room air saturation 96%. Appears in no acute distress. No respiratory distress. No audible wheezing. No use of accessory muscles. HEENT examination is grossly unremarkable. Mucous membranes are moist. No oral lesions. NECK: Supple. Full range of motion. No adenopathy. Neck veins are flat. CARDIOVASCULAR examination reveals regular rhythm and rate. S1, S2 normal. No S3, S4, or murmur. LUNGS: Reveal expiratory wheezes. Breath sounds are diminished throughout. There is prolongation on forced maneuver. No crackles or rhonchi. Adventitious lung sounds are more prominent on forced maneuver. She wheezes and coughs on forced maneuver. ABDOMEN: Soft. Bowel sounds are heard. EXTREMITIES are intact. No cyanosis, clubbing, or edema. SKIN: Without rash. NEUROLOGIC: Examination is brief but nonfocal. CBC shows white count 8, hemoglobin 13.3, hematocrit 41.6, platelet count 303,000. Sodium 139, potassium 4.7, chloride 108, CO2 24, anion gap is 7. BUN and creatinine were normal. The rest of the comprehensive metabolic profile was normal. Influenza A and B studies were negative. A chest x-ray was done on August 23. It shows no acute abnormality. Microbiologic studies are negative. CURRENT MEDICATIONS: Reviewed. She is on Tylenol, Zithromax, Pulmicort 1 mg, formoterol 20 mcg, DuoNeb, Solu-Medrol 60 mg q.6h, and Singulair. ASSESSMENT: 1. Asthma exacerbation complicated by mild purulent tracheobronchitis. 2. Recent admission for asthma exacerbation. 3. History of depression. 4. History of migraine cephalgia. 5. History of lupus erythematosus. 6. History of bulging disk. 7. Prior history of concussion at a young age. PLAN: Her medications are appropriate. She is on a short-acting beta agonist, short-acting muscarinic antagonist, long-acting beta agonist, inhaled corticosteroids, systemic corticosteroids and oral antibiotics. Hopefully, she should improve. She will follow up with Dr. Reyes in the outpatient setting. She might be a candidate for either Xolair, which is a monoclonal antibody IgE or one of the biologics against interleukin- 5 or interleukin 4 and 13 such as Fasenra, Nucala, Cinqair, or Dupixent. Dr. Reyes can explore this with the patient. She will eventually need in the office, an IgE level and absolute eosinophilic count. Additional recommendations and suggestions are forthcoming. MMODL / IJN: [id number] /
--- NOTE | 2019-08-24 18:12 | HP ---
HISTORY AND PHYSICAL DATE OF SERVICE: 08/24/2019. CHIEF COMPLAINT: Shortness of breath and cough and sputum. HISTORY OF PRESENT ILLNESS: This 44-year-old with a past medical history of moderate persistent bronchial asthma, history of bulging discs, history of lupus, history of appendectomy, cholecystectomy, history of depression, being followed by Dr. Ngo in the outpatient setting was complaining of increased shortness of breath, cough and sputum for the past several days. The patient was recently admitted with bronchial asthma, acute exacerbation, and improved significantly but after going home, the patient had deteriorated. There is no history of fever, rigors or chills. No history of headache, loss of consciousness, seizures. A chest x-ray which was done at the time of admission showed normal change with no acute changes, which was personally reviewed by me. There is no history of fever, rigors or chills. No history of headache, loss of consciousness or seizures. PAST MEDICAL HISTORY: History of asthma, history of bulging disc, history of concussion, history of migraine, appendectomy. MEDICATIONS: Prior to admission include home medications are: 1. Maxalt [employer] 5 mg daily p.r.n. 2. Zoloft 100 mg q.h.s. p.r.n. 3. Symbicort 160/4.5 two puffs b.i.d. 4. Claritin-D 1 b.i.d. 5. Proventil HFA 1-2 puffs q.i.d. p.r.n. 6. Ventolin 2.5 q.4 p.r.n. 7. Tylenol p.r.n. ALLERGIES: COMPAZINE. FAMILY HISTORY: History of fibromyalgia in the family. SOCIAL HISTORY: No history of smoking. No history of alcohol intake. REVIEW OF SYSTEMS: ENT: No diminished vision. No diminished hearing. CARDIOVASCULAR: No angina or palpitations. RESPIRATORY: As mentioned earlier. GI no nausea or vomiting. no dysuria. CENTRAL NERVOUS SYSTEM: No numbness or weakness. ALLERGY/IMMUNOLOGY: As mentioned earlier. HEMATOLOGY/ONCOLOGY: No history of anemia. ENDOCRINE: No history of diabetes or hypothyroidism. CONSTITUTIONAL: As mentioned earlier. DERMATOLOGY: Negative. RHEUMATOLOGY: Negative. PSYCHIATRIC: As mentioned earlier. PHYSICAL EXAMINATION: Alert and oriented times three. Pulse 109. Blood pressure 116/72, respirations 17, temperature 98.2, pulse ox 96% on room air. HEENT: Conjunctivae normal. Oral mucosa moist. NECK is no jugular venous distention. No carotid bruit. No lymph node enlargement. CARDIOVASCULAR systems: S1, S2 muffled. RESPIRATION: Breath sounds diminished in the bases. Bilateral scattered rhonchi and crackles. Expiratory wheezing also present. ABDOMEN: Soft, nontender. No mass palpable. LEGS: No edema. No swelling. NERVOUS SYSTEM: Higher functions as mentioned earlier. Moves all four limbs. No focal motor or sensory deficits. LYMPHATICS: No lymph nodes palpable in the neck, axillae or groin. SKIN: No ulcer, no rashes and no bleeding. JOINTS: No active deforming arthropathy. LABS: CBC and BMP noted. ASSESSMENT: 1. Bronchial asthma, acute exacerbation with acute purulent tracheobronchitis. 2. History of recent bronchial asthma, acute exacerbation. 3. History of bulging disc and degenerative joint disease. 4. History of lupus. 5. History of concussion, migraine. 6. Depression. 7. History of obesity with body mass of 34.9. RECOMMENDATIONS AND DISCUSSION: In this 44-year-old woman who presented with multiple complex medical issues, we will monitor the patient closely, continue the current medications, management and symptomatic treatment. Otherwise continue bronchodilators. IV steroids. Monitor blood sugars closely. Empiric antibiotics. Resume the home medications. Repeat labs. Overall prognosis guarded because of multiple complex medical issues. Further recommendations to follow. A copy of the dictation being forwarded to Dr. Ngo who is the primary physician. MMODL / IJN: [id number] /
[2019-08-24] MEDS: AZITHROMYCIN 500 MG TAB PO SCH (18:18)
[2019-08-24] MEDS: methylPREDNISolone SOD SUCCI 125 MG/2 ML VIAL IV SCH ×2 (18:18→23:52)
[2019-08-24] MEDS: INSULIN ASPART (NovoLOG) 100 UNIT/ML VIAL SQ SCH ×2 (18:32→21:26)
[2019-08-24 18:35] LABS: Glucose,Whole Blood 203 mg/dL (75-99)
[2019-08-24] MEDS: HEPARIN SODIUM,PORCINE 5,000 UNIT/ML 1 ML VIAL SQ SCH (21:25)
[2019-08-24] MEDS: MONTELUKAST 10 MG TAB PO SCH (21:26)
[2019-08-24] MEDS: SERTRALINE 100 MG TAB PO SCH (21:26)
[2019-08-24] MEDS: LORATADINE-PSEUDOEPH 5-120 MG 1 EACH TAB.ER.12H PO SCH (21:26)
[2019-08-24 21:29] LABS: Glucose,Whole Blood 120 mg/dL (75-99)
[2019-08-24] MEDS: BUDESONIDE 1 MG/2 ML NEBU INHALATION SCH (22:34)
[2019-08-24] MEDS: FORMOTEROL FUMARATE 20 MCG/2 ML NEBU INHALATION SCH (22:34)
[2019-08-25] MEDS: methylPREDNISolone SOD SUCCI 125 MG/2 ML VIAL IV SCH ×4 (06:11→23:32)
[2019-08-25 06:58] LABS: Basophils % (A) 0 %; Eosinophils # (A) 0.1 k/uL (0-0.7); Eosinophils % (A) 0 %; HCT 39.6 % (34.0-46.0); HGB 12.9 gm/dL (11.4-16.0); Lymphocytes # (A) 1.5 k/uL (1.0-4.8); Lymphocytes % (A) 10 %; MCH 28.6 pg (25.0-35.0); MCHC 32.6 g/dL (31.0-37.0); MCV 87.7 fL (80.0-100.0); Mean Platelet Volume 7.8; Monocytes # (A) 0.2 k/uL (0-1.0); Monocytes % (A) 1 %; Neutrophils # (A) 13.3 k/uL (1.3-7.7); Neutrophils % (A) 88 %; Platelet Count 369 k/uL (150-450); RBC 4.52 m/uL (3.80-5.40); RDW 13.6 % (11.5-15.5); WBC 15.1 k/uL (3.8-10.6)
[2019-08-25 07:06] LABS: African American GFR (CKD) >90 (>60 ml/min/1.73 sqM); Anion Gap 8 mmol/L; Blood Urea Nitrogen 9 mg/dL (7-17); Calcium 9.4 mg/dL (8.4-10.2); Carbon Dioxide 22 mmol/L (22-30); Chloride 109 mmol/L (98-107); Glucose 172 mg/dL (74-99); Non-African American GFR(CKD) >90 (>60 ml/min/1.73 sqM); Potassium 5.1 mmol/L (3.5-5.1); Sodium 139 mmol/L (137-145)
[2019-08-25] MEDS: BUDESONIDE 1 MG/2 ML NEBU INHALATION SCH ×2 (07:21→21:14)
[2019-08-25] MEDS: IPRATROPIUM-ALBUTEROL 3 ML NEB INHALATION PRN ×3 (07:21→21:14)
[2019-08-25] MEDS: FORMOTEROL FUMARATE 20 MCG/2 ML NEBU INHALATION SCH ×2 (07:21→21:14)
[2019-08-25 07:49] LABS: Glucose,Whole Blood 149 mg/dL (75-99)
[2019-08-25] MEDS: HEPARIN SODIUM,PORCINE 5,000 UNIT/ML 1 ML VIAL SQ SCH ×2 (08:40→21:54)
[2019-08-25] MEDS: INSULIN ASPART (NovoLOG) 100 UNIT/ML VIAL SQ SCH ×4 (08:41→21:54)
[2019-08-25] MEDS: AZITHROMYCIN 500 MG TAB PO SCH (08:41)
[2019-08-25] MEDS: PANTOPRAZOLE 40 MG TABLET PO SCH (08:41)
[2019-08-25] MEDS: LORATADINE-PSEUDOEPH 5-120 MG 1 EACH TAB.ER.12H PO SCH ×2 (08:41→21:55)
[2019-08-25 11:46] LABS: Glucose,Whole Blood 131 mg/dL (75-99)
[2019-08-25] MEDS: MULTIVITAMINS, THERA 1 EACH TAB PO SCH (12:41)
--- NOTE | 2019-08-25 12:45 | P.PN ---
Subjective Progress Note Date: 08/25/19 Principal diagnosis: Acute exacerbation of mild intermittent chronic bronchial asthma The patient is seen today 08/25/2019 in follow-up on the regular medical floor. She is currently sitting up in bed. Awake and alert in no acute distress. Still with some wheezing and shortness of breath. Maintaining good O2 saturations in the 90s on room air. She's been afebrile. Hemodynamically stable. White count 15.1. Hemoglobin 12.9. Creatinine 0.52. Continued on DuoNeb inhalations, Pulmicort and Perforomist inhalations, IV Solu-Medrol, Singulair, empiric antibiotics in the form of azithromycin. Objective - Vital Signs Vital signs: Vital Signs Temp 97.5 F L 08/25/19 07:00 Pulse 86 08/25/19 11:01 Resp 15 08/25/19 07:32 BP 131/97 08/25/19 07:00 Pulse Ox 97 08/25/19 07:00 Intake & Output 08/24/19 08/25/19 08/25/19 18:59 06:59 18:59 Intake Total 1356 976 Balance 1356 976 Intake: Oral 1356 976 Other: Voiding Method Toilet Toilet # Voids 4 2 2 - Exam GENERAL EXAM: Alert, active, pleasant 44-year-old female patient, on room air, comfortable in no apparent distress. HEAD: Normocephalic. EYES: Normal reaction of pupils, equal size. NOSE: Clear with pink turbinates. THROAT: No erythema or exudates. NECK: No masses, no JVD. CHEST: No chest wall deformity. LUNGS: Equal air entry with end expiratory wheeze on forced expiratory maneuver, diminished CVS: S1 and S2 normal with no audible murmur, regular rhythm. ABDOMEN: No hepatosplenomegaly, normal bowel sounds, no guarding or rigidity. SPINE: No scoliosis or deformity SKIN: No rashes CENTRAL NERVOUS SYSTEM: No focal deficits, tone is normal in all 4 extremities. EXTREMITIES: There is no peripheral edema. No clubbing, no cyanosis. Peripheral pulses are intact. - Labs CBC & Chem 7: 08/25/19 06:40 08/25/19 06:40 Labs: Abnormal Lab Results - Last 24 Hours (Table) 08/24/19 08/24/19 08/25/19 Range/Units 18:24 21:14 06:40 WBC 15.1 H (3.8-10.6) k/uL Neutrophils # 13.3 H (1.3-7.7) k/uL Chloride (98-107) mmol/L Glucose (74-99) mg/dL POC Glucose (mg/dL) 203 H 120 H (75-99) mg/dL 08/25/19 08/25/19 08/25/19 Range/Units 06:40 07:37 11:34 WBC (3.8-10.6) k/uL Neutrophils # (1.3-7.7) k/uL Chloride 109 H (98-107) mmol/L Glucose 172 H (74-99) mg/dL POC Glucose (mg/dL) 149 H 131 H (75-99) mg/dL Assessment and Plan Assessment: 1 Acute exacerbation of mild intermittent chronic bronchial asthma 2 History of depression 3 History of migraine cephalgia. 4 History of lupus 5 History of bulging disc. Plan: The patient was seen and evaluated by Dr. Mathew. She is improved today compared to yesterday. Not quite back to her baseline. Probable discharge in the a.m. We'll continue to follow. I, the cosigning physician, performed a history & physical examination of the patient. Lungs sounds end expiratory wheeze on forced expiratory maneuver. Maintaining good O2 saturations in the 90s on room air. I discussed the assessment and plan of care with my nurse practitioner, Radha Gordon. I attest to the above note as dictated by her.
[2019-08-25 17:03] LABS: Glucose,Whole Blood 138 mg/dL (75-99)
[2019-08-25 21:02] LABS: Glucose,Whole Blood 177 mg/dL (75-99)
--- NOTE | 2019-08-25 21:45 | PN ---
PROGRESS NOTE DATE OF SERVICE: 08/25/2019 This 44-year-old woman was admitted with acute bronchial asthma acute exacerbation/shortness of breath and cough. Patient is being closely monitored on IV steroids, antibiotics and bronchodilators. No chest pain. No palpitations. No fever. EXAM: Alert and oriented x3. Pulse 99, blood pressure 130/60, respiration 18, temperature 98.2, pulse ox 98% on room air. HEENT: Conjunctivae normal. Oral mucosa moist. NECK: No jugular venous distention. No lymph node enlargement. CARDIOVASCULAR: S1, S2. RESPIRATORY: Diminished breath sounds at the bases. Bilateral scattered rhonchi and crackles. Respiratory wheezing also present. ABDOMEN: Soft, nontender. LEGS: No edema, no swelling. NERVOUS SYSTEM: No focal deficits. LABS: WBC 15.1, hemoglobin 12.9, glucose 172 and 149. ASSESSMENT: 1. Bronchial asthma acute exacerbation with acute purulent tracheobronchitis. 2. History of recent bronchial asthma acute exacerbation. 3. History of bulging disk and degenerative joint disease. 4. History of lupus. 5. History of concussion. 6. History of migraines. 7. History of depression. 8. History of obesity with a body mass index 34.9. RECOMMENDATIONS AND DISCUSSION: This 44-year-old woman who presented with multiple medical issues, we will monitor the patient closely, continue the current medication, continue the symptomatic treatment, continue the bronchodilators and empiric antibiotics. Continue with IV steroids. Monitor blood sugars closely. DVT prophylaxis. Further recommendations to follow. MMODL / IJN: [id number] /
[2019-08-25] MEDS: MONTELUKAST 10 MG TAB PO SCH (21:55)
[2019-08-25] MEDS: SERTRALINE 100 MG TAB PO SCH (21:55)
[2019-08-26] MEDS: methylPREDNISolone SOD SUCCI 125 MG/2 ML VIAL IV SCH ×2 (05:14→11:45)
[2019-08-26 07:24] LABS: Glucose,Whole Blood 139 mg/dL (75-99)
[2019-08-26 07:43] LABS: Basophils % (A) 0 %; Eosinophils % (A) 0 %; HCT 37.9 % (34.0-46.0); HGB 12.1 gm/dL (11.4-16.0); Lymphocytes # (A) 1.3 k/uL (1.0-4.8); Lymphocytes % (A) 9 %; MCH 27.5 pg (25.0-35.0); MCHC 31.9 g/dL (31.0-37.0); MCV 86.2 fL (80.0-100.0); Mean Platelet Volume 8.4; Monocytes # (A) 0.3 k/uL (0-1.0); Monocytes % (A) 2 %; Neutrophils # (A) 12.2 k/uL (1.3-7.7); Neutrophils % (A) 88 %; Platelet Count 321 k/uL (150-450); RDW 13.7 % (11.5-15.5); WBC 13.9 k/uL (3.8-10.6)
[2019-08-26 07:52] LABS: African American GFR (CKD) >90 (>60 ml/min/1.73 sqM); Anion Gap 9 mmol/L; Blood Urea Nitrogen 15 mg/dL (7-17); Calcium 9.1 mg/dL (8.4-10.2); Carbon Dioxide 23 mmol/L (22-30); Chloride 107 mmol/L (98-107); Glucose 151 mg/dL (74-99); Non-African American GFR(CKD) >90 (>60 ml/min/1.73 sqM); Potassium 4.5 mmol/L (3.5-5.1); Sodium 139 mmol/L (137-145)
[2019-08-26] MEDS: INSULIN ASPART (NovoLOG) 100 UNIT/ML VIAL SQ SCH ×4 (08:11→20:50)
[2019-08-26] MEDS: HEPARIN SODIUM,PORCINE 5,000 UNIT/ML 1 ML VIAL SQ SCH (09:20)
[2019-08-26] MEDS: PANTOPRAZOLE 40 MG TABLET PO SCH (09:20)
[2019-08-26] MEDS: AZITHROMYCIN 500 MG TAB PO SCH (09:20)
[2019-08-26] MEDS: LORATADINE-PSEUDOEPH 5-120 MG 1 EACH TAB.ER.12H PO SCH ×2 (09:20→20:50)
[2019-08-26] MEDS: FORMOTEROL FUMARATE 20 MCG/2 ML NEBU INHALATION SCH ×2 (09:40→20:12)
[2019-08-26] MEDS: IPRATROPIUM-ALBUTEROL 3 ML NEB INHALATION PRN (09:40)
[2019-08-26] MEDS: BUDESONIDE 1 MG/2 ML NEBU INHALATION SCH ×2 (09:41→19:57)
[2019-08-26] MEDS: MULTIVITAMINS, THERA 1 EACH TAB PO SCH (11:44)
[2019-08-26 11:50] LABS: Glucose,Whole Blood 118 mg/dL (75-99)
[2019-08-26] MEDS: IPRATROPIUM-ALBUTEROL 3 ML NEB INHALATION SCH ×3 (12:31→19:57)
[2019-08-26] MEDS: ENOXAPARIN 40 MG/0.4 ML SYRINGE SQ SCH (13:16)
--- NOTE | 2019-08-26 13:47 | P.PN ---
Subjective Progress Note Date: 08/26/19 On 08/26/2019 on seeing the patient for a follow-up. The patient reports improvement in the order of 50%. She states that while on the Dulera she was under excellent control. This is her second admission over this past 4 weeks for asthma exacerbation. She is on Pulmicort Respules and DuoNeb nebulized units [id number] and she is on IV Solu Medrol 40 mg every 8 hours. No new complaints otherwise for now. The chest x-ray did not show any acute abnormalities. Primary care physician is Dr. Ngo. She also seen Dr. Reyes Objective - Vital Signs Vital signs: Vital Signs Temp 98.4 F 08/26/19 07:00 Pulse 78 08/26/19 12:43 Resp 17 08/26/19 07:00 BP 130/76 08/26/19 07:00 Pulse Ox 95 08/26/19 07:00 Intake & Output 08/25/19 08/26/19 08/26/19 18:59 06:59 18:59 Intake Total 600 Balance 600 Intake: Oral 600 Other: Voiding Method Toilet Toilet # Voids 3 3 - Exam GENERAL EXAM: Alert, active, pleasant 44-year-old female patient, on room air, comfortable in no apparent distress. HEAD: Normocephalic. EYES: Normal reaction of pupils, equal size. NOSE: Clear with pink turbinates. THROAT: No erythema or exudates. NECK: No masses, no JVD. CHEST: No chest wall deformity. LUNGS: Equal air entry with end expiratory wheeze on forced expiratory maneuver, diminished CVS: S1 and S2 normal with no audible murmur, regular rhythm. ABDOMEN: No hepatosplenomegaly, normal bowel sounds, no guarding or rigidity. SPINE: No scoliosis or deformity SKIN: No rashes CENTRAL NERVOUS SYSTEM: No focal deficits, tone is normal in all 4 extremities. EXTREMITIES: There is no peripheral edema. No clubbing, no cyanosis. Peripheral pulses are intact. - Labs CBC & Chem 7: 08/26/19 06:31 08/26/19 06:31 Labs: Abnormal Lab Results - Last 24 Hours (Table) 08/25/19 08/25/19 08/26/19 Range/Units 16:51 20:50 06:31 WBC 13.9 H (3.8-10.6) k/uL Neutrophils # 12.2 H (1.3-7.7) k/uL Glucose (74-99) mg/dL POC Glucose (mg/dL) 138 H 177 H (75-99) mg/dL 08/26/19 08/26/19 08/26/19 Range/Units 06:31 07:05 11:40 WBC (3.8-10.6) k/uL Neutrophils # (1.3-7.7) k/uL Glucose 151 H (74-99) mg/dL POC Glucose (mg/dL) 139 H 118 H (75-99) mg/dL Assessment and Plan Plan: 1 Acute exacerbation of moderate persistent chronic bronchial asthma 2 History of depression 3 History of migraine cephalgia. 4 History of lupus 5 History of bulging disc. Plan: Continue IV Solu Medrol for another 24 hours. The patient has moderate persistent bronchial asthma and she needs to be on a combination of inhaled corticosteroids and long-acting beta agonist. [place] is her choice and will going to make an effort to preauthorize this medication for her and she may potentially go home in a.m. on a prednisone burst taper. She is a nonsmoker. The chest x-rays clear. She is on Zithromax as an empiric antibiotic coverage.
[2019-08-26] MEDS: methylPREDNISolone SOD SUCCI 40 MG/ML 1 ML VIAL IV SCH (16:24)
[2019-08-26 17:23] LABS: Glucose,Whole Blood 123 mg/dL (75-99)
[2019-08-26 17:32] LABS: Hemoglobin A1C 5.5 % (4.0-6.0)
[2019-08-26 20:37] LABS: Glucose,Whole Blood 202 mg/dL (75-99)
[2019-08-26] MEDS: SERTRALINE 100 MG TAB PO SCH (20:50)
[2019-08-26] MEDS: MONTELUKAST 10 MG TAB PO SCH (20:50)
--- NOTE | 2019-08-26 22:37 | P.PN ---
Progress Note - Text Progress Note Date: 08/26/19 Interval history: This is a very pleasant 44-year-old patient of Dr. Ngo. Chronic stable medi ming conditions include herniated disc, depression, obesity. Patient is a long- standing history of asthma. Admitted with asthma exacerbation Today-feeling a bit better. Still cause some wheezing. Slight cough. Did tolerate some diet. Has been up to the bathroom. No fever no chills. Review of systems: Was done for constitutional, cardiovascular, GI, pulmonary. relevant finding as above Active Medications Acetaminophen (Tylenol Tab) 650 mg PO Q6HR PRN PRN Reason: Fever and/ or Pain Last Admin: 08/24/19 09:29 Dose: 650 mg Documented by: Hydrocodone Bitart/Acetaminophen ([place] 5-325) 1 each PO Q6HR PRN PRN Reason: Pain Albuterol/Ipratropium (Duoneb 0.5 Mg-3 Mg/3 Ml Soln) 3 ml INHALATION RT-Q4H PRN PRN Reason: Shortness Of Breath Or Wheezing Last Admin: 08/26/19 09:40 Dose: 3 ml Documented by: Albuterol/Ipratropium (Duoneb 0.5 Mg-3 Mg/3 Ml Soln) 3 ml INHALATION RT-Q4H [facility] Last Admin: 08/26/19 19:57 Dose: 3 ml Documented by: Alprazolam (Xanax) 0.25 mg PO TID PRN PRN Reason: Anxiety Azithromycin (Zithromax) 500 mg PO DAILY [facility] Last Admin: 08/26/19 09:20 Dose: 500 mg Documented by: Budesonide (Pulmicort) 1 mg INHALATION RT-BID [facility] Last Admin: 08/26/19 19:57 Dose: 1 mg Documented by: Enoxaparin Sodium (Lovenox) 40 mg SQ DAILY [facility] Last Admin: 08/26/19 13:16 Dose: 40 mg Documented by: Formoterol Fumarate (Perforomist) 20 mcg INHALATION RT-BID [facility] Last Admin: 08/26/19 20:12 Dose: 20 mcg Documented by: Insulin Aspart (Novolog) 0 unit SQ [facility]; Protocol Last Admin: 08/26/19 20:50 Dose: 3 unit Documented by: Loratadine/Pseudoephedrine Sulfate (Claritin-D 12 Hr) 1 each PO Q12HR [facility] Last Admin: 08/26/19 20:50 Dose: 1 each Documented by: Methylprednisolone Sodium Succinate (Solu-Medrol) 40 mg IV Q8HR [facility] Last Admin: 08/26/19 16:24 Dose: 40 mg Documented by: Montelukast Sodium (Singulair) 10 mg PO [facility] Last Admin: 08/26/19 20:50 Dose: 10 mg Documented by: Multivitamins (Theragran) 1 each PO DAILY@1200 [facility] Last Admin: 08/26/19 11:44 Dose: 1 each Documented by: Pantoprazole Sodium (Protonix) 40 mg PO AC-BRKFST [facility] Last Admin: 08/26/19 09:20 Dose: 40 mg Documented by: Sertraline HCl (Zoloft) 100 mg PO [facility] Last Admin: 08/26/19 20:50 Dose: 100 mg Documented by: Sumatriptan Succinate (Imitrex) 50 mg PO DAILY PRN PRN Reason: MIGRAINES Physical examination: VITAL SIGNS: 98.8, 88, 18, 122/77, 97% room air GENERAL: Sitting up, distress EYES: Pupils equal. Conjunctiva normal. HEENT: External appearance of nose and ears normal, oral cavity grossly normal. NECK: JVD not raised; masses not palpable. HEART: First and second heart sounds are normal; no edema. LUNGS:[ Respiratory rate increased, decreased breath sounds prolonged expiration some wheezing. ABDOMEN: Soft, nontender, liver spleen not palpable, no masses palpable. PSYCH: Alert and oriented x3; mood and affect normal. INVESTIGATIONS, reviewed in the clinical context: White count 13 per night hemoglobin 12.1 potassium 4.5 creatinine 0.57 Chest x-ray-clear Assessment: -Acute exacerbation of moderate persistent asthma -Obesity BMI 34.9 -Depression not otherwise specified Plan: Patient getting bronchodilators and IV Solu-Medrol. Other home medications are to be corrected. Patient is feeling better since admission. Encouraged to ambulate outside in the hallway. Depending how she does. Possibly home tomorrow.
[2019-08-27] MEDS: methylPREDNISolone SOD SUCCI 40 MG/ML 1 ML VIAL IV SCH ×2 (00:09→07:56)
[2019-08-27] MEDS: IPRATROPIUM-ALBUTEROL 3 ML NEB INHALATION SCH ×4 (00:22→10:38)
[2019-08-27] MEDS: BUDESONIDE 1 MG/2 ML NEBU INHALATION SCH (06:59)
[2019-08-27] MEDS: FORMOTEROL FUMARATE 20 MCG/2 ML NEBU INHALATION SCH (06:59)
[2019-08-27 07:14] LABS: Glucose,Whole Blood 135 mg/dL (75-99)
[2019-08-27 07:56] LABS: Basophils % (A) 0 %; Eosinophils % (A) 0 %; HCT 39.1 % (34.0-46.0); HGB 12.3 gm/dL (11.4-16.0); Lymphocytes # (A) 1.2 k/uL (1.0-4.8); Lymphocytes % (A) 11 %; MCH 27.8 pg (25.0-35.0); MCHC 31.4 g/dL (31.0-37.0); MCV 88.4 fL (80.0-100.0); Mean Platelet Volume 8.1; Monocytes # (A) 0.4 k/uL (0-1.0); Monocytes % (A) 4 %; Neutrophils # (A) 8.5 k/uL (1.3-7.7); Neutrophils % (A) 84 %; Platelet Count 305 k/uL (150-450); RBC 4.42 m/uL (3.80-5.40); RDW 13.6 % (11.5-15.5); WBC 10.1 k/uL (3.8-10.6)
[2019-08-27] MEDS: AZITHROMYCIN 500 MG TAB PO SCH (07:56)
[2019-08-27] MEDS: ENOXAPARIN 40 MG/0.4 ML SYRINGE SQ SCH (07:56)
[2019-08-27] MEDS: INSULIN ASPART (NovoLOG) 100 UNIT/ML VIAL SQ SCH ×2 (07:56→12:12)
[2019-08-27] MEDS: PANTOPRAZOLE 40 MG TABLET PO SCH (07:56)
[2019-08-27] MEDS: LORATADINE-PSEUDOEPH 5-120 MG 1 EACH TAB.ER.12H PO SCH (07:57)
[2019-08-27 08:03] VITALS: BP 132/75; RESP 18; TEMP 98.1
[2019-08-27 08:20] LABS: African American GFR (CKD) >90 (>60 ml/min/1.73 sqM); Anion Gap 9 mmol/L; Blood Urea Nitrogen 14 mg/dL (7-17); Calcium 8.9 mg/dL (8.4-10.2); Carbon Dioxide 28 mmol/L (22-30); Chloride 103 mmol/L (98-107); Glucose 139 mg/dL (74-99); Non-African American GFR(CKD) >90 (>60 ml/min/1.73 sqM); Potassium 4.8 mmol/L (3.5-5.1); Sodium 140 mmol/L (137-145)
--- NOTE | 2019-08-27 10:22 | P.PN ---
Subjective Progress Note Date: 08/27/19 On 08/26/2019 on seeing the patient for a follow-up. The patient reports improvement in the order of 50%. She states that while on the Dulera she was under excellent control. This is her second admission over this past 4 weeks for asthma exacerbation. She is on Pulmicort Respules and DuoNeb nebulized units [id number] and she is on IV Solu Medrol 40 mg every 8 hours. No new complaints otherwise for now. The chest x-ray did not show any acute abnormalities. Primary care physician is Dr. Ngo. She also seen Dr. Reyes On 08/27/2019 on seeing the patient for a follow-up. She continues to improve slowly. No significant chest pain. Less bronchospastic and wheezy. No fever. No nausea. No other significant complaints otherwise for now. She remains on IV Solu-Medrol at a dose of 40 mg every 8 hours. No other significant events overnight. Objective - Vital Signs Vital signs: Vital Signs Temp 98.1 F 08/27/19 07:00 Pulse 88 08/27/19 07:22 Resp 18 08/27/19 07:00 BP 132/75 08/27/19 07:00 Pulse Ox 94 L 08/27/19 07:00 Intake & Output 08/26/19 08/27/19 08/27/19 18:59 06:59 18:59 Intake Total 1080 Balance 1080 Intake: Oral 1080 Other: # Voids 2 - Exam GENERAL EXAM: Alert, active, pleasant 44-year-old female patient, on room air, comfortable in no apparent distress. HEAD: Normocephalic. EYES: Normal reaction of pupils, equal size. NOSE: Clear with pink turbinates. THROAT: No erythema or exudates. NECK: No masses, no JVD. CHEST: No chest wall deformity. LUNGS: Equal air entry with end expiratory wheeze on forced expiratory maneuver, diminished CVS: S1 and S2 normal with no audible murmur, regular rhythm. ABDOMEN: No hepatosplenomegaly, normal bowel sounds, no guarding or rigidity. SPINE: No scoliosis or deformity SKIN: No rashes CENTRAL NERVOUS SYSTEM: No focal deficits, tone is normal in all 4 extremities. EXTREMITIES: There is no peripheral edema. No clubbing, no cyanosis. Peripheral pulses are intact. - Labs CBC & Chem 7: 08/27/19 06:38 08/27/19 06:38 Labs: Abnormal Lab Results - Last 24 Hours (Table) 08/26/19 08/26/19 08/26/19 Range/Units 11:40 17:12 20:25 Neutrophils # (1.3-7.7) k/uL Glucose (74-99) mg/dL POC Glucose (mg/dL) 118 H 123 H 202 H (75-99) mg/dL 08/27/19 08/27/19 08/27/19 Range/Units 06:38 06:38 07:03 Neutrophils # 8.5 H (1.3-7.7) k/uL Glucose 139 H (74-99) mg/dL POC Glucose (mg/dL) 135 H (75-99) mg/dL Assessment and Plan Plan: 1 Acute exacerbation of moderate persistent chronic bronchial asthma, clinically improving and the patient remains on IV Solu-Medrol 40 mg every 8 hours. Less bronchospastic. Less wheezy. 2 History of depression 3 History of migraine cephalgia. 4 History of lupus 5 History of bulging disc. Plan: Discontinue the IV Solu-Medrol. Give the patient 40 mg of prednisone today as part of the burst taper and she'll need to taper it over the next 16 days. The outpatient management of asthma will include either Dulera or one of its alternative combination of inhaled corticosteroid and long-acting beta agonist. She will need short-acting albuterol rescue inhaler and nebulized treatments and will continue to follow.
[2019-08-27 10:40] VITALS: PULSE 84
[2019-08-27] MEDS: MULTIVITAMINS, THERA 1 EACH TAB PO SCH (11:48)
[2019-08-27 11:50] LABS: Glucose,Whole Blood 146 mg/dL (75-99)
--- NOTE | 2019-08-27 23:51 | P.DS ---
Providers Date of admission: 08/26/19 13:55 Expected date of discharge: 08/27/19 Attending physician: Brad Bueno Consults: 08/24/19 00:31 Consult Physician Routine Consulting Provider: Malu Reyes Consult Reason/Comments: asthma exacerbation Do you want consulting provider notified?: Yes, Notify in am Primary care physician: Shakeel Ngo Hospital Course: Hospital course: This is a very pleasant 44-year-old patient of Dr. Ngo. Chronic stable medical conditions include herniated disc, depression, obesity. Patient is a long-standing history of asthma. Admitted with asthma exacerbation. Responded well to steroids bronchodilators. Today-feeling much better. Up and about. Breathing much improved. Discussed with the patient. Consultation: Dr. Terrazas and colleagues from pulmonary Physical examination: VITAL SIGNS: 98.1, 83, 18, 132/75, 94% room air GENERAL: Sitting up in bed, comfortable EYES: Pupils equal. Conjunctiva normal. HEENT: External appearance of nose and ears normal, oral cavity grossly normal. NECK: JVD not raised; masses not palpable. HEART: First and second heart sounds are normal; no edema. LUNGS:[ Respiratory rate normal, decreased breath sounds. ABDOMEN: Soft, nontender, liver spleen not palpable, no masses palpable. PSYCH: Alert and oriented x3; mood and affect normal. INVESTIGATIONS, reviewed in the clinical context: White count 10.1 improvement 2.3 Previous testing White count 13 per night hemoglobin 12.1 potassium 4.5 creatinine 0.57 Chest x-ray-clear Assessment: -Acute exacerbation of moderate persistent asthma -Obesity BMI 34.9 -Depression not otherwise specified Disposition: Home Patient Condition at Discharge: Stable Plan - Discharge Summary Discharge Rx Participant: Yes New Discharge Prescriptions: New predniSONE 10 mg PO DAILY #30 tab Montelukast [Singulair] 10 mg PO HS #30 tab Azithromycin [Zithromax] 500 mg PO DAILY #3 tab Continue Sertraline [Zoloft] 100 mg PO HS Albuterol Sulfate [Proventil Hfa] 1 - 2 puff INHALATION RT-QID PRN PRN Reason: Shortness Of Breath Acetaminophen Tab [Tylenol] 650 mg PO Q4H PRN PRN Reason: Pain Albuterol Nebulized [Ventolin Nebulized] 2.5 mg INHALATION Q4H PRN PRN Reason: Shortness Of Breath Budesonide-Formot 160-4.5 Mcg [Symbicort 160-4.5 Mcg Inhaler] 2 puff INHALATION BID 30 Days #1 inhaler Loratadine-Pseudoeph 5-120 mg [Claritin-D 12 Hour] 1 each PO Q12HR #14 tab.er.12h Rizatriptan Odt [Maxalt AIRPORT MAINTENANCE LABORER] 5 mg PO DAILY PRN PRN Reason: MIGRAINES Discharge Medication List Sertraline [Zoloft] 100 mg PO HS 05/19/17 [History] Albuterol Sulfate [Proventil Hfa] 1 - 2 puff INHALATION RT-QID PRN 05/22/18 [History] Acetaminophen Tab [Tylenol] 650 mg PO Q4H PRN 08/17/18 [History] Albuterol Nebulized [Ventolin Nebulized] 2.5 mg INHALATION Q4H PRN 07/22/19 [History] Budesonide-Formot 160-4.5 Mcg [Symbicort 160-4.5 Mcg Inhaler] 2 puff INHALATION BID 30 Days #1 inhaler 07/22/19 [Rx] Loratadine-Pseudoeph 5-120 mg [Claritin-D 12 Hour] 1 each PO Q12HR #14 tab.er.12h 07/23/19 [Rx] Rizatriptan Odt [Maxalt AIRPORT MAINTENANCE LABORER] 5 mg PO DAILY PRN 08/24/19 [History] Azithromycin [Zithromax] 500 mg PO DAILY #3 tab 08/27/19 [Rx] Montelukast [Singulair] 10 mg PO HS #30 tab 08/27/19 [Rx] predniSONE 10 mg PO DAILY #30 tab 08/27/19 [Rx] Follow up Appointment(s)/Referral(s): Shakeel Ngo MD [Primary Care Provider] - 09/04/19 8:40 am Janette Terrazas MD [STAFF PHYSICIAN] - 10 Days (office closed Please call to make appointment) Patient Instructions/Handouts: Asthma (DC) Discharge Disposition: HOME SELF-CARE
[2019-08-28] MEDS ORDERED: predniSONE 20 MG TAB PO SCH (09:00)
== END 2019-08-27 13:22 | disposition home or self-care (01) | DRG 203 ==
LOC: EC 20:50 → 4SSUR 08-24 00:31 → OBSVTOIN 08-26 13:55
PROVIDERS: ADMIT Hospitalist; ATTEND Hospitalist
DX: J45.41 Moderate persistent asthma with (acute) exacerbation (principal); E66.9 Obesity, unspecified; L93.0 Discoid lupus erythematosus; F32.9 Major depressive disorder, single episode, unspecified; M19.90 Unspecified osteoarthritis, unspecified site; G43.909 Migraine, unspecified, not intractable, without status migrainosus; Z68.34 Body mass index [BMI] 34.0-34.9, adult; Z79.51 Long term (current) use of inhaled steroids; Z87.820 Personal history of traumatic brain injury; Z90.49 Acquired absence of other specified parts of digestive tract; Z84.89 Family history of other specified conditions; Z88.8 Allergy status to other drugs, medicaments and biological substances; Z98.51 Tubal ligation status; Z90.89 Acquired absence of other organs; Z82.49 Family history of ischemic heart disease and other diseases of the circulatory system
CPT/HCPCS: 36415; 71046; 80048; 80053; 82024; 82533; 83036; 83735; 85025; 87502; 94640; 94644; 94760; 96361; 96374; 99285

== ENCOUNTER → 2019-09-24 | Outpatient (CLI) | payer OTHER ==
--- NOTE | 2019-09-24 09:48 | CT ---
EXAMINATION TYPE: CT soft tissue neck wo/w con DATE OF EXAM: 09/24/2019 HISTORY: Sialoadenitis, unspecified. Left-sided pain for 5 months per patient. COMPARISON: NONE CT DLP: 668.8 mGycm. Automated Exposure Control for Dose Reduction was Utilized. TECHNIQUE: CT scan of the neck is performed without and with IV Contrast, patient injected with 100 ml mL of Isovue 300, axial images are obtained, coronal and sagittal reformatted images are reviewed. FINDINGS: Airway: No gross abnormality seen. Parotid/submandibular glands submandibular glands are symmetric and felt within normal limits. No con cerning mass or sialolith. Parotid glands similar are symmetric without suspicious sialolith or rex rning solid or cystic mass. No surrounding inflammatory changes noted. Metallic BB placed at the leve l palpable abnormality anterior to left ear axial image 62. There is benign subcentimeter lymph node at this level along the anterior superior aspect of the left parotid gland with small branching vesse l. No concerning mass or adenopathy noted. Carotid/Vascular Structures: No suspicious abnormality. Osseous Structures: Slight S-shaped scoliotic curvature on coronal images. Other: Mild mucosal thickening in the bilateral maxillary sinuses with small mucous retention cyst or polyp lateral aspect on the right axial image 69. Evidence of prior paranasal sinus surgery. Nasal s eptum is deviated to right of midline. No definitive greater than 1 cm adenopathy. Cholecystectomy clips noted on localizer. IMPRESSION: No suspicious parotid mass or sialolith.
== END | disposition home or self-care (01) ==
LOC: RADCTMAIN 09:03
PROVIDERS: ATTEND Otolaryngology Sleep Medicine
DX: K11.20 Sialoadenitis, unspecified (principal)
CPT/HCPCS: 70492; Q9967

== ENCOUNTER 2019-10-18 10:02 | Observation (INO) | payer OTHER ==
[2019-10-18] MEDS ORDERED: SODIUM CHLORIDE 0.9% 1,000 ML IV STA (10:48)
[2019-10-18] MEDS ORDERED: ONDANSETRON 4 MG/2 ML VIAL IVP STA (10:48)
--- NOTE | 2019-10-18 10:58 | ED ---
General Adult HPI - General Chief complaint: Nausea/Vomiting/Diarrhea Stated complaint: adrenal crisis Time Seen by Provider: 10/18/19 10:44 Source: patient, EMS Mode of arrival: EMS Limitations: no limitations - History of Present Illness Initial comments: Patient presents the ED by ambulance for evaluation with her mother at bedside. Patient states that she had sinus surgery performed at [facility] yesterday, and she states that she has felt generally weak and fatigued since yesterday evening. Patient also states that she has had nausea and vomiting since her surgery. Patient states that she had "adrenal crisis" after a prior surgery, and she is concerned that she may be in adrenal crisis again. Patient reports having a subjective fever yesterday evening, but she is afebrile on arrival to the ED and she denies taking any antipyretic medication today. Patient denies headache, focal neuro deficit, sore throat, chest pain, dyspnea, cough, palpitations, syncope, abdominal pain, diarrhea or constipation, bloody or melanotic stool, hematemesis, dysuria or urinary symptoms, leg or calf swelling or pain, or any other symptoms or complaints. - Related Data Home Medications Medication Instructions Recorded Confirmed Sertraline [Zoloft] 100 mg PO HS 05/19/17 08/24/19 Albuterol Sulfate [Proventil Hfa] 1 - 2 puff INHALATION RT-QID PRN 05/22/18 08/24/19 Acetaminophen Tab [Tylenol] 650 mg PO Q4H PRN 08/17/18 08/24/19 Albuterol Nebulized [Ventolin 2.5 mg INHALATION Q4H PRN 07/22/19 08/24/19 Nebulized] Rizatriptan Odt [Maxalt H[employer] OUTFIT SUPERVISOR] 5 mg PO DAILY PRN 08/24/19 08/24/19 Previous Rx's Medication Instructions Recorded Budesonide-Formot 160-4.5 Mcg 2 puff INHALATION BID 30 Days #1 07/22/19 [Symbicort 160-4.5 Mcg Inhaler] inhaler Loratadine-Pseudoeph 5-120 mg 1 each PO Q12HR #14 tab.er.12h 07/23/19 [Claritin-D 12 Hour] Azithromycin [Zithromax] 500 mg PO DAILY #3 tab 08/27/19 Montelukast [Singulair] 10 mg PO HS #30 tab 08/27/19 predniSONE 10 mg PO DAILY #30 tab 08/27/19 Allergies Allergy/AdvReac Type Severity Reaction Status Date / Time prochlorperazine AdvReac Muscle Verified 08/24/19 09:38 [From Compazine] Spasms Review of Systems ROS Statement: Those systems with pertinent positive or pertinent negative responses have been documented in the HPI. ROS Other: All systems not noted in ROS Statement are negative. Past Medical History Past Medical History: Asthma Additional Past Medical History / Comment(s): Bulging discs, Lupus, age 13 had concussion, migraines. History of Any Multi-Drug Resistant Organisms: None Reported Past Surgical History: Appendectomy, Cholecystectomy, Orthopedic Surgery, Tubal Ligation Additional Past Surgical History / Comment(s): D&C, bunionectomy, left knee meniscus repair, sinus surgery Past Anesthesia/Blood Transfusion Reactions: No Reported Reaction Additional Past Anesthesia/Blood Transfusion Reaction / Comment(s): Has never received blood. Past Psychological History: Depression Smoking Status: Never smoker Past Alcohol Use History: None Reported Past Drug Use History: None Reported - Past Family History Father History Unknown: Yes Additional Family Medical History / Comment(s): Pt stated she does'nt know her Dad well enough to know his hx. Mother Family Medical History: Fibromyalgia Additional Family Medical History / Comment(s): Pots Syndrome General Exam Limitations: no limitations General appearance: alert, in no apparent distress Head exam: Present: atraumatic, normocephalic Eye exam: Present: normal appearance, PERRL, EOMI ENT exam: Present: normal oropharynx, mucous membranes moist Neck exam: Present: other (Trachea is in midline). Absent: tenderness, menin gismus Respiratory exam: Present: normal lung sounds bilaterally. Absent: respiratory distress, wheezes, rales, rhonchi Cardiovascular Exam: Present: regular rate, normal rhythm, normal heart sounds, other (Normal radial pulses bilaterally) GI/Abdominal exam: Present: soft, normal bowel sounds. Absent: distended, tenderness, guarding Extremities exam: Present: full ROM, other (Negative Clare's sign bilaterally). Absent: tenderness, pedal edema, calf tenderness Neurological exam: Present: alert, oriented X3. Absent: motor sensory deficit Psychiatric exam: Present: normal affect, normal mood Skin exam: Present: warm, dry, intact, normal color Course Vital Signs 10/18/19 10/18/19 10:04 11:50 Temperature 97.2 F L Pulse Rate 86 72 Respiratory 16 16 Rate Blood Pressure 121/65 119/78 O2 Sat by Pulse 98 98 Oximetry - Reevaluation(s) Reevaluation #1: 10/18/19 12:44 Case, H&P, test results and ED management were discussed with Dr. Barth (hospitalist). He accepts observational admission. He has no further recommendations at this time. 10/18/19 12:51 Patient denies development of any new symptoms while in the ED. Patient states that her symptoms have improved with ED treatment. Patient remains alert and breathing comfortably. Patient remains normotensive and her vital signs remain reassuring. Patient and mother are aware of the patient's test results, and patient agrees with hospital admission at this time. Medical Decision Making - Medical Decision Making Patient's random cortisol level is low at a level of 1. Patient was given a dos e of IV hydrocortisone in the ED. Will admit the patient to the hospital for continued IV fluid resuscitation, antiemetic medications and steroid treatment for adrenal insufficiency. Dr. Barth has accepted hospital admission. - Lab Data Result diagrams: 10/18/19 11:05 10/18/19 11:05 Lab Results 10/18/19 10/18/19 10/18/19 Range/Units 11:05 11:05 11:05 WBC 11.6 H (3.8-10.6) k/uL RBC 4.97 (3.80-5.40) m/uL Hgb 13.8 (11.4-16.0) gm/dL Hct 42.5 (34.0-46.0) % MCV 85.6 (80.0-100.0) fL MCH 27.8 (25.0-35.0) pg MCHC 32.4 (31.0-37.0) g/dL RDW 13.4 (11.5-15.5) % Plt Count 354 (150-450) k/uL Neutrophils % 71 % Lymphocytes % 21 % Monocytes % 5 % Eosinophils % 1 % Basophils % 0 % Neutrophils # 8.2 H (1.3-7.7) k/uL Lymphocytes # 2.4 (1.0-4.8) k/uL Monocytes # 0.6 (0-1.0) k/uL Eosinophils # 0.1 (0-0.7) k/uL Basophils # 0.0 (0-0.2) k/uL Sodium 139 (137-145) mmol/L Potassium 4.3 (3.5-5.1) mmol/L Chloride 107 (98-107) mmol/L Carbon Dioxide 24 (22-30) mmol/L Anion Gap 8 mmol/L BUN 13 (7-17) mg/dL Creatinine 0.66 (0.52-1.04) mg/dL Est GFR (CKD-EPI)AfAm >90 (>60 ml/min/1.73 sqM) Est GFR (CKD-EPI)NonAf >90 (>60 ml/min/1.73 sqM) Glucose 112 H (74-99) mg/dL Calcium 9.1 (8.4-10.2) mg/dL Magnesium 2.3 (1.6-2.3) mg/dL Total Bilirubin 0.6 (0.2-1.3) mg/dL AST 27 (14-36) U/L ALT 24 (4-34) U/L Alkaline Phosphatase 68 (38-126) U/L Total Protein 7.1 (6.3-8.2) g/dL Albumin 4.4 (3.5-5.0) g/dL HCG, Qual Not Detected Cortisol 1 ug/dL Urine Color Light Yellow Urine Appearance Clear (Clear) Urine pH 6.0 (5.0-8.0) Ur Specific Nora 1.013 (1.001-1.035) Urine Protein Negative (Negative) Urine Glucose (UA) Negative (Negative) Urine Ketones Trace H (Negative) Urine Blood Trace H (Negative) Urine Nitrite Negative (Negative) Urine Bilirubin Negative (Negative) Urine Urobilinogen <2.0 (<2.0) mg/dL Ur Leukocyte Esterase Negative (Negative) Urine RBC 1 (0-5) /hpf Urine WBC <1 (0-5) /hpf Ur Squamous Epith Cells 2 (0-4) /hpf Urine Bacteria Rare H (None) /hpf Urine Mucus Rare H (None) /hpf Disposition Clinical Impression: Nausea and vomiting, Adrenal insufficiency Disposition: ADMITTED IP TO THIS HOSP Condition: Stable Is patient prescribed a controlled substance at d/c from ED?: No Referrals: Shakeel Ngo MD [Primary Care Provider] - 1-2 days Time of Disposition: 12:47
[2019-10-18 11:18] LABS: Basophils % (A) 0 %; Eosinophils # (A) 0.1 k/uL (0-0.7); Eosinophils % (A) 1 %; HCT 42.5 % (34.0-46.0); HGB 13.8 gm/dL (11.4-16.0); Lymphocytes # (A) 2.4 k/uL (1.0-4.8); Lymphocytes % (A) 21 %; MCH 27.8 pg (25.0-35.0); MCHC 32.4 g/dL (31.0-37.0); MCV 85.6 fL (80.0-100.0); Mean Platelet Volume 8.1; Monocytes # (A) 0.6 k/uL (0-1.0); Monocytes % (A) 5 %; Neutrophils # (A) 8.2 k/uL (1.3-7.7); Neutrophils % (A) 71 %; Platelet Count 354 k/uL (150-450); RBC 4.97 m/uL (3.80-5.40); RDW 13.4 % (11.5-15.5); WBC 11.6 k/uL (3.8-10.6)
[2019-10-18 11:29] LABS: Appearance,Urine Clear (Clear); Bacteria,Urine Rare /hpf; Bilirubin,Urine Negative (Negative); Blood,Urine Trace (Negative); Color,Urine Light Yellow; Glucose,Urine (UA) Negative (Negative); Ketones,Urine Trace (Negative); Leukocyte Esterase,Urine Negative (Negative); Mucus,Urine Rare /hpf; Nitrite,Urine Negative (Negative); Protein,Urine Negative (Negative); RBC,Urine 1 /hpf (0-5); Specific Gravity,Urine 1.013 (1.001-1.035); Squamous Epithelial Cell,Urine 2 /hpf (0-4); Urobilinogen,Urine <2.0 mg/dL (<2.0); WBC,Urine <1 /hpf (0-5)
[2019-10-18 11:39] LABS: HCG,Qualitative Serum Not Detected
[2019-10-18 11:46] LABS: ALT 24 U/L (4-34); AST 27 U/L (14-36); African American GFR (CKD) >90 (>60 ml/min/1.73 sqM); Albumin 4.4 g/dL (3.5-5.0); Alkaline Phosphatase 68 U/L (38-126); Anion Gap 8 mmol/L; Blood Urea Nitrogen 13 mg/dL (7-17); Calcium 9.1 mg/dL (8.4-10.2); Carbon Dioxide 24 mmol/L (22-30); Chloride 107 mmol/L (98-107); Glucose 112 mg/dL (74-99); Magnesium 2.3 mg/dL (1.6-2.3); Non-African American GFR(CKD) >90 (>60 ml/min/1.73 sqM); Potassium 4.3 mmol/L (3.5-5.1); Sodium 139 mmol/L (137-145); Total Bilirubin 0.6 mg/dL (0.2-1.3); Total Protein 7.1 g/dL (6.3-8.2)
[2019-10-18] MEDS ORDERED: MORPHINE SULFATE 4 MG/ML SYRINGE IVP STA (11:50)
[2019-10-18] MEDS ORDERED: HYDROCORTISONE SUCCINATE 100 MG/2 ML VIAL IV STA (12:22)
[2019-10-18] MEDS ORDERED: ONDANSETRON 4 MG/2 ML VIAL IVP PRN (12:47)
[2019-10-18] MEDS ORDERED: NALOXONE 0.4 MG/ML 1 ML VIAL IV PRN (12:47)
[2019-10-18] MEDS: SODIUM CHLORIDE 0.9% 1,000 ML IV SCH ×2 (13:04→20:08)
[2019-10-18] MEDS ORDERED: ALBUTEROL NEBULIZED 2.5 MG/3 ML INHALATION PRN (17:47)
[2019-10-18] MEDS ORDERED: HYDROcodone/APAP 5-325MG 1 EACH TAB PO PRN (17:47)
[2019-10-18] MEDS ORDERED: SUMAtriptan SUCCINATE 50 MG TAB PO PRN (17:47)
[2019-10-18] MEDS ORDERED: HYDROCORTISONE 20 MG TAB PO SCH (19:15)
--- NOTE | 2019-10-18 19:18 | P.HPIM ---
History of Present Illness This is a pleasant 44 years old female, with past medical history of asthma, degenerative disc disease, lupus, migraines, status post tubal ligation appendicectomy and cholecystectomy and orthopedic surgery, depression, adrenal insufficiency , Presents because of nausea and vomiting , recurrent for every thing she eats or drinks after she had ENT surgery for her nose yesterday at [facility] , pt states she has similar symptoms whenever she has surgery or sever illness and she thinks that is related to her adrenal insufficiency . pt denies chest pain or dyspnea , no abd pain and no diarrhea Vitas looks stable, she has mild blood cell count of 11.6 K, rest of CBC, BMP and liver enzymes were unremarkable, urinalysis is not suspicious for infection pt got hydrocotisone 100 mg iv x1 in ED and started on Iv fluids she is on keflex 500 mg bid x 7 d for post op care Review of Systems CONSTITUTIONAL: No fever, no malaise, no fatigue. HEENT: No recent visual problems or hearing problems. Denied any sore throat. CARDIOVASCULAR: No orthopnea, PND, no palpitations, no syncope. PULMONARY: No shortness of breath, no cough, no hemoptysis. GASTROINTESTINAL: No diarrhea, no abdominal pain. Normoactive bowel sounds. NEUROLOGICAL: No headaches, no weakness, no numbness. HEMATOLOGICAL: Denies any bleeding or petechiae. GENITOURINARY: Denies any burning micturition, frequency, or urgency. MUSCULOSKELETAL/RHEUMATOLOGICAL: Denies any joint pain, swelling, or any muscle pain. ENDOCRINE: Denies any polyuria or polydipsia. Past Medical History Past Medical History: Asthma Additional Past Medical History / Comment(s): Bulging discs, Lupus, age 13 had concussion, migraines. History of Any Multi-Drug Resistant Organisms: None Reported Past Surgical History: Appendectomy, Cholecystectomy, Orthopedic Surgery, Tubal Ligation Additional Past Surgical History / Comment(s): D&C, bunionectomy, left knee meniscus repair, sinus surgery Past Anesthesia/Blood Transfusion Reactions: No Reported Reaction Additional Past Anesthesia/Blood Transfusion Reaction / Comment(s): Has never received blood. Past Psychological History: Depression Smoking Status: Never smoker Past Alcohol Use History: None Reported Past Drug Use History: None Reported - Past Family History Father History Unknown: Yes Additional Family Medical History / Comment(s): Pt stated she does'nt know her Dad well enough to know his hx. Mother Family Medical History: Fibromyalgia Additional Family Medical History / Comment(s): Pots Syndrome Daughter(s) Additional Family Medical History / Comment(s): Daughter has adrenal insufficiency. Medications and Allergies Home Medications Medication Instructions Recorded Confirmed Type Sertraline [Zoloft] 50 mg PO HS 05/19/17 10/18/19 History Albuterol Sulfate [Proventil Hfa] 1 - 2 puff INHALATION RT-QID PRN 05/22/18 10/18/19 History Albuterol Nebulized [Ventolin 2.5 mg INHALATION RT-QID PRN 07/22/19 10/18/19 History Nebulized] Rizatriptan Odt [Maxalt LIQUOR CLERK] 5 mg PO DAILY PRN 08/24/19 10/18/19 History Montelukast [Singulair] 10 mg PO HS #30 tab 08/27/19 10/18/19 Rx Cephalexin [Keflex] 500 mg PO BID 10/18/19 10/18/19 History Fluticasone Propion/Salmeterol 1 puff INHALATION RT-BID 10/18/19 10/18/19 History [Wixela 250-50 Inhub] HYDROcodone/APAP 5-325MG [Stirum 1 tab PO Q6H PRN 10/18/19 10/18/19 History 5-325] Loratadine [Claritin] 10 mg PO HS 10/18/19 10/18/19 History Allergies Allergy/AdvReac Type Severity Reaction Status Date / Time prochlorperazine AdvReac Muscle Verified 10/18/19 13:54 [From Compazine] Spasms Physical Exam Vitals: Vital Signs Temp Pulse Resp BP Pulse Ox 10/18/19 11:50 72 16 119/78 98 10/18/19 10:04 97.2 F L 86 16 121/65 98 Intake and Output 10/17/19 10/18/19 10/18/19 22:59 06:59 14:59 Other: Weight 95.254 kg GENERAL: The patient is alert and oriented x3, not in any acute distress. Well developed, well nourished. -HEENT: Pupils are round and equally reacting to light. EOMI. No scleral icterus. No conjunctival pallor. Normocephalic, atraumatic. No pharyngeal erythema. No thyromegaly. CARDIOVASCULAR: S1 and S2 present. No murmurs, rubs, or gallops. nasal pack dressing, dry mucous membranes PULMONARY: Chest is clear to auscultation, no wheezing or crackles. ABDOMEN: Soft, nontender, nondistended, normoactive bowel sounds. No palpable organomegaly. MUSCULOSKELETAL: No joint swelling or deformity. EXTREMITIES: No cyanosis, clubbing, or pedal edema. NEUROLOGICAL: Gross neurological examination did not reveal any focal deficits. SKIN: No rashes. No petechiae Results CBC & Chem 7: 10/18/19 11:05 10/18/19 11:05 Labs: Abnormal Lab Results - Last 24 Hours (Table) 10/18/19 10/18/19 10/18/19 Range/Units 11:05 11:05 11:05 WBC 11.6 H (3.8-10.6) k/uL Neutrophils # 8.2 H (1.3-7.7) k/uL Glucose 112 H (74-99) mg/dL Urine Ketones Trace H (Negative) Urine Blood Trace H (Negative) Urine Bacteria Rare H (None) /hpf Urine Mucus Rare H (None) /hpf Assessment and Plan Assessment: Nausea and vomiting suspicious for acute adrenal insufficiency Dehydration secondary to above adrenal insufficiency Degenerative joint disease, status post orthopedic surgery Migraine Lupus Patient: Upon activation Asthma, not an active issue Plan: This is a pleasant 44 years old female who presents with persistent nausea vomiting. Continue with symptomatic treatment, continue with IV hydration. start hydrocortisone orally Labs and medication were reviewed.. Continue same treatment. Continue with symptomatic treatment. Resume home medication. Monitor lytes and vitals. DVT and GI prophylaxis. Further recommendations of the clinical course of the patient DVT prophylaxis: Subcutaneous heparin GI Prophylaxis: Pepcid Prognosis is guarded
[2019-10-18] MEDS: MONTELUKAST 10 MG TAB PO SCH (20:02)
[2019-10-18] MEDS: SERTRALINE 50 MG TAB PO SCH (20:02)
[2019-10-18] MEDS: LORATADINE 10 MG TAB PO SCH (20:02)
[2019-10-18] MEDS: FAMOTIDINE 20 MG/2 ML VIAL IV SCH (20:02)
[2019-10-18] MEDS: CEPHALEXIN 500 MG CAP PO SCH (20:02)
[2019-10-18] MEDS: HEPARIN SODIUM,PORCINE 5,000 UNIT/ML 1 ML VIAL SQ SCH (20:02)
[2019-10-19] MEDS: SODIUM CHLORIDE 0.9% 1,000 ML IV SCH ×2 (05:44→13:19)
[2019-10-19 06:30] LABS: Basophils % (A) 0 %; Eosinophils # (A) 0.1 k/uL (0-0.7); Eosinophils % (A) 1 %; HCT 35.5 % (34.0-46.0); HGB 11.5 gm/dL (11.4-16.0); Lymphocytes # (A) 2.8 k/uL (1.0-4.8); Lymphocytes % (A) 34 %; MCH 27.8 pg (25.0-35.0); MCHC 32.3 g/dL (31.0-37.0); MCV 86.1 fL (80.0-100.0); Mean Platelet Volume 8.3; Monocytes # (A) 0.5 k/uL (0-1.0); Monocytes % (A) 6 %; Neutrophils # (A) 4.6 k/uL (1.3-7.7); Neutrophils % (A) 56 %; Platelet Count 280 k/uL (150-450); RBC 4.13 m/uL (3.80-5.40); RDW 13.4 % (11.5-15.5); WBC 8.2 k/uL (3.8-10.6)
[2019-10-19 06:39] LABS: African American GFR (CKD) >90 (>60 ml/min/1.73 sqM); Anion Gap 4 mmol/L; Blood Urea Nitrogen 11 mg/dL (7-17); Carbon Dioxide 24 mmol/L (22-30); Chloride 110 mmol/L (98-107); Glucose 94 mg/dL (74-99); Magnesium 2.2 mg/dL (1.6-2.3); Non-African American GFR(CKD) >90 (>60 ml/min/1.73 sqM); Potassium 4.4 mmol/L (3.5-5.1); Sodium 138 mmol/L (137-145)
[2019-10-19] MEDS: HYDROCORTISONE 10 MG TAB PO SCH ×2 (08:27→21:15)
[2019-10-19] MEDS: HEPARIN SODIUM,PORCINE 5,000 UNIT/ML 1 ML VIAL SQ SCH ×2 (08:27→21:16)
[2019-10-19] MEDS: CEPHALEXIN 500 MG CAP PO SCH ×2 (08:27→21:15)
[2019-10-19] MEDS: FAMOTIDINE 20 MG/2 ML VIAL IV SCH (08:27)
[2019-10-19] MEDS: ACETAMINOPHEN TAB 325 MG TAB PO PRN ×2 (08:31→21:15)
--- NOTE | 2019-10-19 13:28 | P.PN ---
Subjective This is a pleasant 44 years old female, with past medical history of asthma, degenerative disc disease, lupus, migraines, status post tubal ligation appendicectomy and cholecystectomy and orthopedic surgery, depression, adrenal insufficiency , Presents because of nausea and vomiting , recurrent for every thing she eats or drinks after she had ENT surgery for her nose yesterday at [facility] , pt states she has similar symptoms whenever she has surgery or sever illness and she thinks that is related to her adrenal insufficiency . pt denies chest pain or dyspnea , no abd pain and no diarrhea Vitas looks stable, she has mild blood cell count of 11.6 K, rest of CBC, BMP and liver enzymes were unremarkable, urinalysis is not suspicious for infection pt got hydrocotisone 100 mg iv x1 in ED and started on Iv fluids she is on keflex 500 mg bid x 7 d for post op care 10/19/2019 Patient feels better, her sinus surgery site is non-bothering the patient, she still have some nausea but vomiting stopped from last night, she is tolerating liquid diet and wants to advance it to regular diet. She wants IV fluid and telemetry to be discontinued, she complains only from mild epigastric pain. She started Cortef 10 mg so far. We will keep monitoring 1 more day and if she feels better possible discharge tomorrow . Review of Systems Review of systems CONSTITUTIONAL: No fever, no malaise, no fatigue. HEENT: No recent visual problems or hearing problems. Denied any sore throat. CARDIOVASCULAR: No orthopnea, PND, no palpitations, no syncope. PULMONARY: No shortness of breath, no cough, no hemoptysis. GASTROINTESTINAL: No diarrhea, no abdominal pain. Normoactive bowel sounds. NEUROLOGICAL: No headaches, no weakness, no numbness. HEMATOLOGICAL: Denies any bleeding or petechiae. GENITOURINARY: Denies any burning micturition, frequency, or urgency. MUSCULOSKELETAL/RHEUMATOLOGICAL: Denies any joint pain, swelling, or any muscle pain. ENDOCRINE: Denies any polyuria or polydipsia. Active Medications Generic Name Dose Route Start Last Admin Trade Name Freq PRN Reason Stop Dose Admin Acetaminophen 650 mg 10/19/19 08:26 10/19/19 08:31 Tylenol Tab PO 650 mg Q6HR PRN Administration Fever and/ or Pain Hydrocodone Bitart/Acetaminophen 1 each 10/18/19 17:47 10/18/19 18:17 [place] 5-325 PO 1 each Q6H PRN Administration Pain Albuterol Sulfate 2.5 mg 10/18/19 17:47 Ventolin Nebulized INHALATION RT-QID PRN Shortness Of Breath Cephalexin 500 mg 10/18/19 21:00 10/19/19 08:27 Keflex PO 500 mg BID SHEA Administration Famotidine 20 mg 10/18/19 21:00 10/19/19 08:27 Pepcid IV 20 mg Q12HR SHEA Administration Heparin Sodium (Porcine) 5,000 unit 10/18/19 21:00 10/19/19 08:27 Heparin SQ Not Given Q12HR SHEA Hydrocortisone 10 mg 10/19/19 09:00 10/19/19 08:27 Cortef PO 10 mg BID SHEA Administration Loratadine 10 mg 10/18/19 21:00 10/18/19 20:02 Claritin PO 10 mg HS SHEA Administration Montelukast Sodium 10 mg 10/18/19 21:00 10/18/19 20:02 Singulair PO 10 mg HS SHEA Administration Naloxone HCl 0.2 mg 10/18/19 12:47 Narcan IV Q2M PRN Opioid Reversal Ondansetron HCl 4 mg 10/18/19 12:47 Zofran IVP Q8HR PRN Nausea And Vomiting Sertraline HCl 50 mg 10/18/19 21:00 10/18/19 20:02 Zoloft PO 50 mg HS SHEA Administration Sumatriptan Succinate 50 mg 10/18/19 17:47 Imitrex PO DAILY PRN MIGRAINES Objective - Vital Signs Vital signs: Vital Signs Temp 98.4 F 10/19/19 07:00 Pulse 86 10/19/19 07:00 Resp 18 10/19/19 07:00 BP 115/68 10/19/19 07:00 Pulse Ox 98 10/19/19 07:00 Intake & Output 10/18/19 10/19/19 10/19/19 18:59 06:59 18:59 Intake Total 120 840 Balance 120 840 Weight 95.254 kg Intake: Intake, IV Titration 120 840 Amount Sodium Chloride 0.9% 1, 120 840 000 ml @ 120 mls/hr IV . Q8H20M [facility] Rx#:[id number] Other: Voiding Method Toilet Toilet # Voids 1 2 - Exam GENERAL: The patient is alert and oriented x3, not in any acute distress. Well developed, well nourished. HEENT: Pupils are round and equally reacting to light. EOMI. No scleral icterus. No conjunctival pallor. Normocephalic, atraumatic. No pharyngeal erythema. No thyromegaly. CARDIOVASCULAR: S1 and S2 present. No murmurs, rubs, or gallops. PULMONARY: Chest is clear to auscultation, no wheezing or crackles. -ABDOMEN: Soft, mild epigastric pain with no guarding or rebound tenderness, nondistended, normoactive bowel sounds. No palpable organomegaly. MUSCULOSKELETAL: No joint swelling or deformity. EXTREMITIES: No cyanosis, clubbing, or pedal edema. NEUROLOGICAL: Gross neurological examination did not reveal any focal deficits. SKIN: No rashes. no petechiae. - Labs CBC & Chem 7: 10/19/19 05:38 10/19/19 05:38 Labs: Abnormal Lab Results - Last 24 Hours (Table) 10/19/19 Range/Units 05:38 Chloride 110 H (98-107) mmol/L Calcium 8.0 L (8.4-10.2) mg/dL Assessment and Plan Assessment: Nausea and vomiting suspicious for acute adrenal insufficiency Dehydration secondary to above adrenal insufficiency Degenerative joint disease, status post orthopedic surgery Migraine Lupus Patient: Upon activation Asthma, not an active issue Plan: This is a pleasant 44 years old female who presents with persistent nausea vomiting. Continue with symptomatic treatment, continue with IV hydration. start hydrocortisone orally Labs and medication were reviewed.. Continue same treatment. Continue with symptomatic treatment. Resume home medication. Monitor lytes and vitals. DVT and GI prophylaxis. Further recommendations of the clinical course of the patie nt DVT prophylaxis: Subcutaneous heparin GI Prophylaxis: Pepcid Prognosis is guarded
--- NOTE | 2019-10-19 14:15 | XR ---
EXAMINATION TYPE: XR abdomen 1V DATE OF EXAM: 10/19/2019 COMPARISON: 08/09/2018 INDICATION: Nausea vomiting and epigastric pain TECHNIQUE: Single view abdomen upright view FINDINGS: There is a normal bowel gas pattern. Psoas margins are normal. No organomegaly is present. Cholecystectomy clips are present. No suspicious calcifications are evident. No free air is evident. The differential are present. IMPRESSION: 1. Unremarkable Abdomen
[2019-10-19] MEDS: SERTRALINE 50 MG TAB PO SCH (21:15)
[2019-10-19] MEDS: LORATADINE 10 MG TAB PO SCH (21:15)
[2019-10-19] MEDS: MONTELUKAST 10 MG TAB PO SCH (21:15)
[2019-10-19] MEDS: FAMOTIDINE 20 MG TAB PO SCH (21:15)
[2019-10-20 06:30] LABS: African American GFR (CKD) >90 (>60 ml/min/1.73 sqM); Anion Gap 6 mmol/L; Blood Urea Nitrogen 13 mg/dL (7-17); Calcium 8.2 mg/dL (8.4-10.2); Carbon Dioxide 25 mmol/L (22-30); Chloride 107 mmol/L (98-107); Glucose 91 mg/dL (74-99); Non-African American GFR(CKD) >90 (>60 ml/min/1.73 sqM); Potassium 4.2 mmol/L (3.5-5.1); Sodium 138 mmol/L (137-145)
[2019-10-20 08:00] VITALS: BP 141/87; PULSE 78; RESP 17; TEMP 97.8
[2019-10-20] MEDS: FAMOTIDINE 20 MG TAB PO SCH (08:31)
[2019-10-20] MEDS: CEPHALEXIN 500 MG CAP PO SCH (08:31)
[2019-10-20] MEDS: HYDROCORTISONE 10 MG TAB PO SCH (08:31)
[2019-10-20] MEDS: HEPARIN SODIUM,PORCINE 5,000 UNIT/ML 1 ML VIAL SQ SCH (08:31)
--- NOTE | 2019-10-20 11:56 | P.DS ---
Providers Date of admission: 10/18/19 12:47 Attending physician: Garrick Barth Primary care physician: Shakeel Ngo Hospital Course: Diagnoses: Nausea and vomiting secondary to acute adrenal insufficiency, improved Dehydration secondary to above, improved Acute adrenal insufficiency, improved leukocytosis, reactive improved Degenerative joint disease, status post orthopedic surgery Migraine Lupus Patient: Upon activation Asthma, not an active issue Hospital course: This is a pleasant 44 years old female, with past medical history of asthma, degenerative disc disease, lupus, migraines, status post tubal ligation appendicectomy and cholecystectomy and orthopedic surgery, depression, adrenal insufficiency , Presents because of nausea and vomiting , recurrent for every thing she eats or drinks after she had ENT sinus surgery for her nose one day taylor dinh at [facility] , pt states she has similar symptoms whenever she has surgery or sever illness and she thinks that is related to her adrenal insufficiency . pt denies chest pain or dyspnea , no abd pain and no diarrhea Vitas looks stable, she has mild blood cell count of 11.6 K, came back to normal at 8.2 rest of CBC, BMP and liver enzymes were unremarkable, urinalysis is not suspicious for infection pt got hydrocotisone 100 mg iv x1 in ED and started on Iv fluids, She maintained on hydrocortisone Cortef 10 mg by mouth twice daily and she tolerated that well, her nausea vomiting stopped, abdominal pain resolved she's tolerating diet well and treatment stable for more than 24 hours. she is on keflex 500 mg bid x 7 d for post op care Problems and management plan were discussed with the patient and he verbalized understanding and acceptance Patient was found stable and can be discharged home however he needs follow-up as an outpatient. Patient was instructed to follow up with PCP Dr. Ngo tomorrow on 10/20, aorta discussed the case with Dr. Ngo , please see my H&P for more details Also patient was instructed to follow up with oil sprayer Dr. Salcedo up in one week and she agrees to call and make appointments within one week and patient agrees Gen: patient is a AAOx3, no distress CVS: S1-S2, RRR, no murmur Lungs: B/L CTA, no wheezing Abdomen: soft, no distention, no tenderness, positive bowel sounds Extremity: no leg edema or induration Time spent more than 35 minutes Patient Condition at Discharge: Stable Plan - Discharge Summary Discharge Rx Participant: No New Discharge Prescriptions: New Hydrocortisone [Cortef] 10 mg PO BID #60 tab Continue Sertraline [Zoloft] 50 mg PO HS Albuterol Sulfate [Proventil Hfa] 1 - 2 puff INHALATION RT-QID PRN PRN Reason: Shortness Of Breath Albuterol Nebulized [Ventolin Nebulized] 2.5 mg INHALATION RT-QID PRN PRN Reason: Shortness Of Breath Rizatriptan Odt [Maxalt QUALITY CONTROL COORDINATOR] 5 mg PO DAILY PRN PRN Reason: MIGRAINES Montelukast [Singulair] 10 mg PO HS #30 tab Cephalexin [Keflex] 500 mg PO BID Fluticasone Propion/Salmeterol [[place] 250-50 Inhub] 1 puff INHALATION RT-BID HYDROcodone/APAP 5-325MG [[place] 5-325] 1 tab PO Q6H PRN PRN Reason: Pain Loratadine [Claritin] 10 mg PO HS Discharge Medication List Sertraline [Zoloft] 50 mg PO HS 05/19/17 [History] Albuterol Sulfate [Proventil Hfa] 1 - 2 puff INHALATION RT-QID PRN 05/22/18 [H istory] Albuterol Nebulized [Ventolin Nebulized] 2.5 mg INHALATION RT-QID PRN 07/22/19 [History] Rizatriptan Odt [Maxalt QUALITY CONTROL COORDINATOR] 5 mg PO DAILY PRN 08/24/19 [History] Montelukast [Singulair] 10 mg PO HS #30 tab 08/27/19 [Rx] Cephalexin [Keflex] 500 mg PO BID 10/18/19 [History] Fluticasone Propion/Salmeterol [[place] 250-50 Inhub] 1 puff INHALATION RT-BID 10/18/19 [History] HYDROcodone/APAP 5-325MG [[place] 5-325] 1 tab PO Q6H PRN 10/18/19 [History] Loratadine [Claritin] 10 mg PO HS 10/18/19 [History] Hydrocortisone [Cortef] 10 mg PO BID #60 tab 10/20/19 [Rx] Follow up Appointment(s)/Referral(s): Shakeel Ngo MD [Primary Care Provider] - 10/21/19 10:40 am Ankit Werner MD [REFERRING] - 1 Week Patient Instructions/Handouts: Secondary Adrenal Insufficiency (DC)
== END 2019-10-20 13:06 | disposition home or self-care (01) ==
LOC: EC 10:02 → 4SSUR 12:47
PROVIDERS: ADMIT Internal Medicine; ATTEND Internal Medicine
DX: E27.40 Unspecified adrenocortical insufficiency (principal); E86.0 Dehydration; D72.829 Elevated white blood cell count, unspecified; J45.909 Unspecified asthma, uncomplicated; M19.90 Unspecified osteoarthritis, unspecified site; M32.9 Systemic lupus erythematosus, unspecified; G43.909 Migraine, unspecified, not intractable, without status migrainosus; M51.9 Unspecified thoracic, thoracolumbar and lumbosacral intervertebral disc disorder; F32.9 Major depressive disorder, single episode, unspecified; Z87.820 Personal history of traumatic brain injury; Z88.8 Allergy status to other drugs, medicaments and biological substances; Z79.51 Long term (current) use of inhaled steroids; Z79.899 Other long term (current) drug therapy; Z90.49 Acquired absence of other specified parts of digestive tract; Z98.51 Tubal ligation status; Z82.49 Family history of ischemic heart disease and other diseases of the circulatory system; Z82.69 Family history of other diseases of the musculoskeletal system and connective tissue; Z98.890 Other specified postprocedural states
CPT/HCPCS: 96376; 96375 ×2; 96361 ×2; 96374; 99285; 36415; 80053; 80048 ×2; 82533 ×2; 83735 ×3; 85025 ×2; 81001; 84703; 74018; G0378 ×3; J2270; J1720; J2405

== ENCOUNTER 2020-02-06 09:48 | Emergency (ER) | payer OTHER ==
[2020-02-06 09:55] VITALS: BP 112/57; PULSE 70; RESP 18; TEMP 98.1
[2020-02-06] MEDS ORDERED: KETOROLAC 60 MG/2 ML VIAL IM STA (10:11)
[2020-02-06] MEDS ORDERED: ORPHENADRINE 30 MG/ML 2 ML VIAL IM STA (10:11)
--- NOTE | 2020-02-06 10:11 | ED ---
General Adult HPI - General Chief complaint: Extremity Injury, Lower Stated complaint: Rt ankle injury Time Seen by Provider: 02/06/20 10:02 Source: patient, RN notes reviewed, old records reviewed Mode of arrival: wheelchair Limitations: physical limitation - History of Present Illness Initial comments: Patient is a 45-year-old female presents emergency Department today with complaints of right ankle pain, minimal swelling after rolling it. She reports that she was diagnosed with sciatic nerve problems, and has been on gabapentin for nerve pain for the past week. Patient reportedly has a "normal right leg and believes that because her leg was numb is the reason why she rolled her ankle in fell. Patient states that she has no knee or hip pain at this time. She reports she is able to ambulate. - Related Data Home Medications Medication Instructions Recorded Confirmed Sertraline [Zoloft] 50 mg PO HS 05/19/17 10/18/19 Albuterol Sulfate [Proventil Hfa] 1 - 2 puff INHALATION RT-QID PRN 05/22/18 10/18/19 Albuterol Nebulized [Ventolin 2.5 mg INHALATION RT-QID PRN 07/22/19 10/18/19 Nebulized] Rizatriptan Odt [Maxalt TECHNICAL ASSISTANT] 5 mg PO DAILY PRN 08/24/19 10/18/19 Cephalexin [Keflex] 500 mg PO BID 10/18/19 10/18/19 Fluticasone Propion/Salmeterol 1 puff INHALATION RT-BID 10/18/19 10/18/19 [[place] 250-50 Inhub] HYDROcodone/APAP 5-325MG [[place] 1 tab PO Q6H PRN 10/18/19 10/18/19 5-325] Loratadine [Claritin] 10 mg PO HS 10/18/19 10/18/19 Previous Rx's Medication Instructions Recorded Montelukast [Singulair] 10 mg PO HS #30 tab 08/27/19 Hydrocortisone [Cortef] 10 mg PO BID #60 tab 10/20/19 Cyclobenzaprine [Flexeril] 10 mg PO TID #12 tab 02/06/20 Ibuprofen [Motrin] 600 mg PO Q6HR PRN #20 tab 02/06/20 Allergies Allergy/AdvReac Type Severity Reaction Status Date / Time prochlorperazine AdvReac Muscle Verified 02/06/20 09:55 [From Compazine] Spasms Review of Systems ROS Statement: Those systems with pertinent positive or pertinent negative responses have been documented in the HPI. ROS Other: All systems not noted in ROS Statement are negative. Past Medical History Past Medical History: Asthma Additional Past Medical History / Comment(s): Bulging discs, Lupus, age 13 had concussion, migraines. History of Any Multi-Drug Resistant Organisms: None Reported Past Surgical History: Appendectomy, Cholecystectomy, Orthopedic Surgery, Tubal Ligation Additional Past Surgical History / Comment(s): D&C, bunionectomy, left knee meniscus repair, sinus surgery Past Anesthesia/Blood Transfusion Reactions: No Reported Reaction Additional Past Anesthesia/Blood Transfusion Reaction / Comment(s): Has never received blood. Past Psychological History: Depression Smoking Status: Never smoker Past Alcohol Use History: None Reported Past Drug Use History: None Reported - Past Family History Father History Unknown: Yes Additional Family Medical History / Comment(s): Pt stated she does'nt know her Dad well enough to know his hx. Mother Family Medical History: Fibromyalgia Additional Family Medical History / Comment(s): Pots Syndrome Daughter(s) Additional Family Medical History / Comment(s): Daughter has adrenal insufficiency. General Exam - General Exam Comments Initial Comments: Alert and oriented 45-year-old female. No significant distress. Limitations: physical limitation Head exam: Present: atraumatic, normocephalic, normal inspection Eye exam: Present: normal appearance, PERRL, EOMI. Absent: scleral icterus, conjunctival injection, periorbital swelling ENT exam: Present: normal exam, mucous membranes moist Neck exam: Present: normal inspection. Absent: tenderness, meningismus, lymphadenopathy Respiratory exam: Present: normal lung sounds bilaterally. Absent: respiratory distress, wheezes, rales, rhonchi, stridor Cardiovascular Exam: Present: regular rate, normal rhythm, normal heart sounds. Absent: systolic murmur, diastolic murmur, rubs, gallop, clicks GI/Abdominal exam: Present: soft, normal bowel sounds. Absent: distended, guarding, rebound, rigid Extremities exam: Present: normal inspection, full ROM, normal capillary refill. Absent: tenderness, pedal edema, joint swelling, calf tenderness Right Lower Leg exam: Present: normal inspection, full ROM Ankle exam: Present: normal inspection, full ROM Foot/Toe exam: Present: full ROM, tenderness, swelling (over lateral malleolus). Absent: normal inspection Gait: observed and normal Back exam: Present: normal inspection Neurological exam: Present: alert, oriented X3, CN II-XII intact Psychiatric exam: Present: normal affect Skin exam: Present: warm, dry, intact, normal color. Absent: rash Course Vital Signs 02/06/20 09:51 Temperature 98.1 F Pulse Rate 70 Respiratory 18 Rate Blood Pressure 112/57 O2 Sat by Pulse 98 Oximetry Procedures - Orthopedic Splinting/Casting Injury #1 Side: right Lower Extremity Injury Location: short leg, ankle Lower Extremity Immobilizer: stirrup splint, Keagan wrap, synthetic pre-padded splint Other Orthopedic Equipment: crutches Additional Comments: She was reevaluated neurovascularly intact. Medical Decision Making - Medical Decision Making 45-year-old female presents emergency room today with complaint of right ankle pain, swelling over the lateral malleolus. She does have some minor swelling. Patient's also complaining of sciatic nerve pain causing some numbness down the right leg. She had x-rays that show evidence of chronic appearing deformity over the medial malleolus. She has no significant tenderness there. However with concern on the Patient may need an MRI she was splinted and advised for orthopedic follow-up for further imaging as MRI. Given IM Toradol and Norflex to help with sciatic nerve pain. I advised Patient to take anti-inflammatory medication written for prescription for crutches. All questions were answered. - Radiology Data Radiology results: report reviewed Findings suggest osteochondral defect along the medial ankle more T's questionable age. Ankle MRI may be confirmatory. No dislocation. Disposition Clinical Impression: Ankle sprain, Sciatica Disposition: HOME SELF-CARE Condition: Good Instructions (If sedation given, give patient instructions): Ankle Sprain (ED), Sciatica (ED) Additional Instructions: Please use medication as discussed. Follow up with orthopedic. Ambulate with crutches. Please follow up with family doctor if symptoms have not improved over the next two days. Please return to the emergency room if your symptoms increase or worsen or for any other concerns. Prescriptions: Cyclobenzaprine [Flexeril] 10 mg PO TID #12 tab Ibuprofen [Motrin] 600 mg PO Q6HR PRN #20 tab PRN Reason: Pain Is patient prescribed a controlled substance at d/c from ED?: No Referrals: Shakeel Ngo MD [Primary Care Provider] - 1-2 days Joseluis Mcclendon DO [Medical Doctor] - 1-2 days Time of Disposition: 10:50
--- NOTE | 2020-02-06 10:37 | XR ---
Right leg and right ankle HISTORY: Ankle sprain yesterday, twisted ankle, pain 2 views of the right leg, 3 views the right ankle Bone mineralization, joint spaces and alignment are maintained. Only minimal soft tissue swelling not ed. There is a lucency present at the medial aspect of the ankle mortise, talus shows focal defect. P robable bone island present within the distal metaphyseal right tibia. IMPRESSION: Findings suggest osteochondral defect along the medial ankle mortise questionable age, an kle MRI would be confirmatory. No dislocation.
== END 2020-02-06 11:36 | disposition home or self-care (01) ==
LOC: EC 09:48
DX: J45.909 Unspecified asthma, uncomplicated (principal); G43.909 Migraine, unspecified, not intractable, without status migrainosus; F32.9 Major depressive disorder, single episode, unspecified; Z79.51 Long term (current) use of inhaled steroids; Z79.899 Other long term (current) drug therapy; Z88.8 Allergy status to other drugs, medicaments and biological substances; M54.30 Sciatica, unspecified side; S93.401A Sprain of unspecified ligament of right ankle, initial encounter; X50.1XXA Overexertion from prolonged static or awkward postures, initial encounter; Y92.89 Other specified places as the place of occurrence of the external cause
CPT/HCPCS: 99284; 29515; 73590; 73610; J2360; J1885

== ENCOUNTER 2020-02-13 11:46 | Emergency (ER) | payer OTHER ==
[2020-02-13 11:55] VITALS: BP 118/54; PULSE 89; RESP 18; TEMP 98.2
[2020-02-13] MEDS ORDERED: methylPREDNISolone SOD SUCCI 125 MG/2 ML VIAL IM ONE (12:15)
--- NOTE | 2020-02-13 12:21 | ED ---
Back Pain HPI - General Chief Complaint: Back Pain/Injury Stated Complaint: Back & R Leg Pain Time Seen by Provider: 02/13/20 11:58 Source: patient - History of Present Illness Initial Comments: Patient is a 45-year-old female, with history of chronic back pain, presenting to the emergency Department with complaints of pain in her right gluteal that extends down her right leg. Patient states she was in the ER last week after having a fall and spraining her ankle. She states her fall was because of her right-sided sciatica. Patient states she did follow up with her ortho doc and had injections in her back 3 days ago. Patient states she continues to have pain in her right gluteal area. Patient does have an appointment to get a second opinion in a few weeks. She states she is taking gabapentin and ibuprofen 800s which have not been helping. She is also been doing ice to the area. She denies any recent fever or chills, bowel or bladder incontinence. She denies any saddle paresthesias. She has no further complaints at this time. Upon arrival to the ER, her vital signs are stable. - Related Data Home Medications Medication Instructions Recorded Confirmed Sertraline [Zoloft] 50 mg PO HS 05/19/17 10/18/19 Albuterol Sulfate [Proventil Hfa] 1 - 2 puff INHALATION RT-QID PRN 05/22/18 10/18/19 Albuterol Nebulized [Ventolin 2.5 mg INHALATION RT-QID PRN 07/22/19 10/18/19 Nebulized] Rizatriptan Odt [Maxalt IT SUPPORT MANAGER] 5 mg PO DAILY PRN 08/24/19 10/18/19 Cephalexin [Keflex] 500 mg PO BID 10/18/19 10/18/19 Fluticasone Propion/Salmeterol 1 puff INHALATION RT-BID 10/18/19 10/18/19 [Wixela 250-50 Inhub] HYDROcodone/APAP 5-325MG [[place] 1 tab PO Q6H PRN 10/18/19 10/18/19 5-325] Loratadine [Claritin] 10 mg PO HS 10/18/19 10/18/19 Previous Rx's Medication Instructions Recorded Montelukast [Singulair] 10 mg PO HS #30 tab 08/27/19 Hydrocortisone [Cortef] 10 mg PO BID #60 tab 10/20/19 Cyclobenzaprine [Flexeril] 10 mg PO TID #12 tab 02/06/20 Ibuprofen [Motrin] 600 mg PO Q6HR PRN #20 tab 02/06/20 methylPREDNISolone [Medrol Dose 4 mg PO DIRECTED #1 pack 02/13/20 Pack] Allergies Allergy/AdvReac Type Severity Reaction Status Date / Time prochlorperazine AdvReac Muscle Verified 02/13/20 11:55 [From Compazine] Spasms Review of Systems ROS Statement: Those systems with pertinent positive or pertinent negative responses have been documented in the HPI. ROS Other: All systems not noted in ROS Statement are negative. Past Medical History Past Medical History: Asthma Additional Past Medical History / Comment(s): Bulging discs, Lupus, age 13 had concussion, migraines. History of Any Multi-Drug Resistant Organisms: None Reported Past Surgical History: Appendectomy, Cholecystectomy, Orthopedic Surgery, Tubal Ligation Additional Past Surgical History / Comment(s): D&C, bunionectomy, left knee meniscus repair, sinus surgery Past Anesthesia/Blood Transfusion Reactions: No Reported Reaction Additional Past Anesthesia/Blood Transfusion Reaction / Comment(s): Has never received blood. Past Psychological History: Depression Smoking Status: Never smoker Past Alcohol Use History: None Reported Past Drug Use History: None Reported - Past Family History Father History Unknown: Yes Additional Family Medical History / Comment(s): Pt stated she does'nt know her Dad well enough to know his hx. Mother Family Medical History: Fibromyalgia Additional Family Medical History / Comment(s): Pots Syndrome Daughter(s) Additional Family Medical History / Comment(s): Daughter has adrenal insufficiency. General Exam - General Exam Comments Initial Comments: GENERAL: Well-appearing, well-nourished and in no acute distress. HEAD: Atraumatic, normocephalic. EYES: Pupils equal round and reactive to light, extraocular movements intact, sclera anicteric, conjunctiva are normal. ENT: Nares patent, oropharynx clear without exudates. Moist mucous membranes. NECK: Normal range of motion, supple without lymphadenopathy or JVD. LUNGS: Breath sounds clear to auscultation bilaterally and equal. No wheezes rales or rhonchi. HEART: Regular rate and rhythm without murmurs, rubs or gallops. ABDOMEN: Soft, nontender, normoactive bowel sounds. No guarding, no rebound. No masses appreciated. : Deferred EXTREMITIES: Normal range of motion, no pitting or edema. No clubbing or cyanosis. Strength is 5 out of 5 upper and lower extremities bilaterally. Sensation is equal and bilateral. She is neurovascular intact bilateral lower extremities. She does have a normal gait. No pain in the lumbar spine or lumbar paraspinals. She has full trunk range of motion. NEUROLOGICAL: Normal speech, normal gait. PSYCH: Normal mood, normal affect. SKIN: Warm, Dry, normal turgor, no rashes or lesions noted. Course Vital Signs 02/13/20 11:53 Temperature 98.2 F Pulse Rate 89 Respiratory 18 Rate Blood Pressure 118/54 O2 Sat by Pulse 98 Oximetry Medical Decision Making - Medical Decision Making Patient is a 45-year-old female with history of chronic low back pain presenting with right-sided sciatica symptoms 1 week. She did follow up with her orthope dic doctor 3 days ago and had lower back injections. She is also taking gabapentin and ibuprofen without relief. Her exam today has no acute findings, no red flag symptoms. Her strength is 5 out of 5 and she is walking. I discussed the patient and react have a trial of steroids to help with inflammation around the area. She is in agreement with this. We will give her 125 as solu-Medrol in the ER and have her start oral steroids tomorrow. I did discuss with her to stop taking her ibuprofen 800s while taking the steroids. She is in agreement with this plan of care. She'll follow back up with her doctor. Return parameters were discussed with the patient she verbalized understanding. She is stable for discharge. Disposition Clinical Impression: Right sided sciatica, Chronic back pain Disposition: HOME SELF-CARE Condition: Stable Instructions (If sedation given, give patient instructions): Sciatica (ED) Additional Instructions: Please return to the Emergency Department if symptoms worsen or any other concerns. Trial of steroids for pain and inflammation. Please do not take ibuprofen while taking the steroids. Follow-up with doctor as discussed. Prescriptions: methylPREDNISolone [Medrol Dose Pack] 4 mg PO DIRECTED #1 pack Is patient prescribed a controlled substance at d/c from ED?: No Referrals: Shakeel Ngo MD [Primary Care Provider] - 1-2 days
== END 2020-02-13 12:53 | disposition home or self-care (01) ==
LOC: EC 11:46
DX: M54.31 Sciatica, right side (principal); G89.29 Other chronic pain; J45.909 Unspecified asthma, uncomplicated; G43.909 Migraine, unspecified, not intractable, without status migrainosus; F32.9 Major depressive disorder, single episode, unspecified; Z79.899 Other long term (current) drug therapy; Z88.8 Allergy status to other drugs, medicaments and biological substances
CPT/HCPCS: 96372; 99283; J2930

== ENCOUNTER 2020-06-24 11:52 | Observation (INO) | payer OTHER ==
[2020-06-24] MEDS ORDERED: methylPREDNISolone SOD SUCCI 125 MG/2 ML VIAL IV STA (12:22)
[2020-06-24] MEDS ORDERED: IPRATROPIUM-ALBUTEROL 3 ML NEB INHALATION STA ×2 (12:22→14:39)
[2020-06-24] MEDS ORDERED: SODIUM CHLORIDE 0.9% 1,000 ML IV STA ×2 (12:22)
--- NOTE | 2020-06-24 12:35 | ED ---
SOB HPI - General Chief Complaint: Shortness of Breath Stated Complaint: sob Time Seen by Provider: 06/24/20 12:13 Source: patient, RN notes reviewed, old records reviewed Mode of arrival: ambulatory Limitations: no limitations - History of Present Illness Initial Comments: this is a 45-year-old female DF for evaluation patient Dese for evaluation of sh ortness breath COPD exacerbation no history of asthma. Patient is steroid issues recently was on steroids with no improvement in symptoms. No fevers. No pain. It was a much worse coughing attack will admissions usually once or twice ER MD Complaint: shortness of breath, cough -: week(s) Severity: moderate Severity scale (1-10): 6 Consistency: constant, intermittent Improves With: oxygen, bronchodilators, medication Worsens With: exertion, coughing Known History Of: COPD, asthma Context: recent URI Associated Symptoms: cough - Related Data Home Medications Medication Instructions Recorded Confirmed Sertraline [Zoloft] 50 mg PO HS 05/19/17 10/18/19 Albuterol Sulfate [Proventil Hfa] 1 - 2 puff INHALATION RT-QID PRN 05/22/18 10/18/19 Albuterol Nebulized [Ventolin 2.5 mg INHALATION RT-QID PRN 07/22/19 10/18/19 Nebulized] Rizatriptan Odt [Maxalt OFFICE DIRECTOR] 5 mg PO DAILY PRN 08/24/19 10/18/19 Cephalexin [Keflex] 500 mg PO BID 10/18/19 10/18/19 Fluticasone Propion/Salmeterol 1 puff INHALATION RT-BID 10/18/19 10/18/19 [Wixela 250-50 Inhub] HYDROcodone/APAP 5-325MG [[place] 1 tab PO Q6H PRN 10/18/19 10/18/19 5-325] Loratadine [Claritin] 10 mg PO HS 10/18/19 10/18/19 Previous Rx's Medication Instructions Recorded Montelukast [Singulair] 10 mg PO HS #30 tab 08/27/19 Hydrocortisone [Cortef] 10 mg PO BID #60 tab 10/20/19 Cyclobenzaprine [Flexeril] 10 mg PO TID #12 tab 02/06/20 Ibuprofen [Motrin] 600 mg PO Q6HR PRN #20 tab 02/06/20 methylPREDNISolone [Medrol Dose 4 mg PO DIRECTED #1 pack 02/13/20 Pack] Allergies Allergy/AdvReac Type Severity Reaction Status Date / Time prochlorperazine AdvReac Muscle Verified 06/24/20 11:56 [From Compazine] Spasms Review of Systems ROS Statement: Those systems with pertinent positive or pertinent negative responses have been documented in the HPI. ROS Other: All systems not noted in ROS Statement are negative. Past Medical History Past Medical History: Asthma Additional Past Medical History / Comment(s): Bulging discs, Lupus, age 13 had concussion, migraines. History of Any Multi-Drug Resistant Organisms: None Reported Past Surgical History: Appendectomy, Cholecystectomy, Orthopedic Surgery, Tubal Ligation Additional Past Surgical History / Comment(s): D&C, bunionectomy, left knee meniscus repair, sinus surgery Past Anesthesia/Blood Transfusion Reactions: No Reported Reaction Additional Past Anesthesia/Blood Transfusion Reaction / Comment(s): Has never received blood. Past Psychological History: Depression Smoking Status: Never smoker Past Alcohol Use History: None Reported Past Drug Use History: None Reported - Past Family History Father History Unknown: Yes Additional Family Medical History / Comment(s): Pt stated she does'nt know her Dad well enough to know his hx. Mother Family Medical History: Fibromyalgia Additional Family Medical History / Comment(s): Pots Syndrome Daughter(s) Additional Family Medical History / Comment(s): Daughter has adrenal insufficiency. General Exam Limitations: no limitations General appearance: alert, in no apparent distress, anxious Head exam: Present: atraumatic, normocephalic, normal inspection Eye exam: Present: normal appearance, PERRL, EOMI. Absent: scleral icterus, conjunctival injection, periorbital swelling ENT exam: Present: normal exam, mucous membranes moist Neck exam: Present: normal inspection. Absent: tenderness, meningismus, lymphadenopathy Respiratory exam: Present: normal lung sounds bilaterally, wheezes, accessory muscle use, decreased breath sounds, prolonged expiratory. Absent: respiratory distress, rales, rhonchi, stridor Cardiovascular Exam: Present: regular rate, normal rhythm, normal heart sounds. Absent: systolic murmur, diastolic murmur, rubs, gallop, clicks GI/Abdominal exam: Present: soft, normal bowel sounds. Absent: distended, tenderness, guarding, rebound, rigid Extremities exam: Present: normal inspection, full ROM, normal capillary refill. Absent: tenderness, pedal edema, joint swelling, calf tenderness Back exam: Present: normal inspection Neurological exam: Present: alert, oriented X3, CN II-XII intact Psychiatric exam: Present: normal affect, normal mood Skin exam: Present: warm, dry, intact, normal color. Absent: rash Course Vital Signs 06/24/20 06/24/20 06/24/20 11:54 13:32 13:44 Temperature 99.4 F Pulse Rate 58 L 86 86 Respiratory 24 Rate Blood Pressure 110/68 O2 Sat by Pulse 97 Oximetry - Reevaluation(s) Reevaluation #1: 06/24/20 14:42 medical records reviewed Reevaluation #2: 06/24/20 14:42 patient does not feel better here in the ER, prefers admission Medical Decision Making - Medical Decision Making 45 female to the ER exacerbation with status, patient does not feel better here in the ER, patient be admitted for continued breathing treatments and steroids - Lab Data Result diagrams: 06/24/20 12:39 06/24/20 12:39 Lab Results 06/24/20 06/24/20 06/24/20 Range/Units 12:39 12:39 12:39 WBC 7.9 (3.8-10.6) k/uL RBC 5.23 (3.80-5.40) m/uL Hgb 14.8 (11.4-16.0) gm/dL Hct 47.0 H (34.0-46.0) % MCV 89.8 (80.0-100.0) fL MCH 28.2 (25.0-35.0) pg MCHC 31.4 (31.0-37.0) g/dL RDW 13.0 (11.5-15.5) % Plt Count 339 (150-450) k/uL Neutrophils % 52 % Lymphocytes % 30 % Monocytes % 4 % Eosinophils % 11 % Basophils % 1 % Neutrophils # 4.1 (1.3-7.7) k/uL Lymphocytes # 2.4 (1.0-4.8) k/uL Monocytes # 0.3 (0-1.0) k/uL Eosinophils # 0.8 H (0-0.7) k/uL Basophils # 0.1 (0-0.2) k/uL PT 10.0 (9.0-12.0) sec INR 1.0 (<1.2) APTT 24.7 (22.0-30.0) sec Sodium 137 (137-145) mmol/L Potassium 4.3 (3.5-5.1) mmol/L Chloride 108 H (98-107) mmol/L Carbon Dioxide 19 L (22-30) mmol/L Anion Gap 10 mmol/L BUN 8 (7-17) mg/dL Creatinine 0.66 (0.52-1.04) mg/dL Est GFR (CKD-EPI)AfAm >90 (>60 ml/min/1.73 sqM) Est GFR (CKD-EPI)NonAf >90 (>60 ml/min/1.73 sqM) Glucose 111 H (74-99) mg/dL Plasma Lactic Acid Vikas (0.7-2.0) mmol/L Calcium 9.0 (8.4-10.2) mg/dL Magnesium 1.9 (1.6-2.3) mg/dL Total Bilirubin 0.8 (0.2-1.3) mg/dL AST 29 (14-36) U/L ALT 11 (4-34) U/L Alkaline Phosphatase 55 (38-126) U/L Lactate Dehydrogenase 636 H (313-618) U/L Creatine Kinase 106 (30-135) U/L Troponin I (0.000-0.034) ng/mL C-Reactive Protein 8.2 (<10.0) mg/L NT-Pro-B Natriuret Pep pg/mL Total Protein 7.7 (6.3-8.2) g/dL Albumin 4.5 (3.5-5.0) g/dL 06/24/20 06/24/20 06/24/20 Range/Units 12:39 12:39 12:39 WBC (3.8-10.6) k/uL RBC (3.80-5.40) m/uL Hgb (11.4-16.0) gm/dL Hct (34.0-46.0) % MCV (80.0-100.0) fL MCH (25.0-35.0) pg MCHC (31.0-37.0) g/dL RDW (11.5-15.5) % Plt Count (150-450) k/uL Neutrophils % % Lymphocytes % % Monocytes % % Eosinophils % % Basophils % % Neutrophils # (1.3-7.7) k/uL Lymphocytes # (1.0-4.8) k/uL Monocytes # (0-1.0) k/uL Eosinophils # (0-0.7) k/uL Basophils # (0-0.2) k/uL PT (9.0-12.0) sec INR (<1.2) APTT (22.0-30.0) sec Sodium (137-145) mmol/L Potassium (3.5-5.1) mmol/L Chloride (98-107) mmol/L Carbon Dioxide (22-30) mmol/L Anion Gap mmol/L BUN (7-17) mg/dL Creatinine (0.52-1.04) mg/dL Est GFR (CKD-EPI)AfAm (>60 ml/min/1.73 sqM) Est GFR (CKD-EPI)NonAf (>60 ml/min/1.73 sqM) Glucose (74-99) mg/dL Plasma Lactic Acid Vikas 1.3 (0.7-2.0) mmol/L Calcium (8.4-10.2) mg/dL Magnesium (1.6-2.3) mg/dL Total Bilirubin (0.2-1.3) mg/dL AST (14-36) U/L ALT (4-34) U/L Alkaline Phosphatase (38-126) U/L Lactate Dehydrogenase (313-618) U/L Creatine Kinase (30-135) U/L Troponin I <0.012 (0.000-0.034) ng/mL C-Reactive Protein (<10.0) mg/L NT-Pro-B Natriuret Pep 406 pg/mL Total Protein (6.3-8.2) g/dL Albumin (3.5-5.0) g/dL - EKG Data -: EKG Interpreted by Me (EKG shows sinus tachycardia 106 CA 122 QRS 80 QTc 427) - Radiology Data Radiology results: report reviewed (chest x-rays negative for acute disease), image reviewed Disposition Clinical Impression: Asthma exacerbation, Asthma with status asthmaticus, Asthma with acute exacerbation Disposition: ADMITTED IP TO [facility] Condition: Good Instructions (If sedation given, give patient instructions): Asthma (ED) Is patient prescribed a controlled substance at d/c from ED?: No Referrals: Shakeel Ngo MD [Primary Care Provider] - 1-2 days
[2020-06-24 12:58] LABS: Basophils # (A) 0.1 k/uL (0-0.2); Basophils % (A) 1 %; Eosinophils # (A) 0.8 k/uL (0-0.7); Eosinophils % (A) 11 %; HGB 14.8 gm/dL (11.4-16.0); Lymphocytes # (A) 2.4 k/uL (1.0-4.8); Lymphocytes % (A) 30 %; MCH 28.2 pg (25.0-35.0); MCHC 31.4 g/dL (31.0-37.0); MCV 89.8 fL (80.0-100.0); Mean Platelet Volume 8.2; Monocytes # (A) 0.3 k/uL (0-1.0); Monocytes % (A) 4 %; Neutrophils # (A) 4.1 k/uL (1.3-7.7); Neutrophils % (A) 52 %; Platelet Count 339 k/uL (150-450); RBC 5.23 m/uL (3.80-5.40); WBC 7.9 k/uL (3.8-10.6)
[2020-06-24 13:05] LABS: Partial Thromboplastin Time 24.7 sec (22.0-30.0)
--- NOTE | 2020-06-24 13:05 | XR ---
EXAMINATION TYPE: XR chest 2V DATE OF EXAM: 06/24/2020 COMPARISON: Prior chest x-ray 08/23/2019 HISTORY: Difficulty breathing TECHNIQUE: Frontal and lateral views of the chest are obtained. FINDINGS: There is no focal air space opacity, pleural effusion, or pneumothorax seen. The cardiac silhouette size is within normal limits. Surgical clips present in the right upper quadrant. Patien t is rotated. The osseous structures are intact. IMPRESSION: No acute cardiopulmonary process.
[2020-06-24 13:11] LABS: ALT 11 U/L (4-34); AST 29 U/L (14-36); African American GFR (CKD) >90 (>60 ml/min/1.73 sqM); Albumin 4.5 g/dL (3.5-5.0); Alkaline Phosphatase 55 U/L (38-126); Anion Gap 10 mmol/L; Blood Urea Nitrogen 8 mg/dL (7-17); C Reactive Protein 8.2 mg/L (<10.0); Carbon Dioxide 19 mmol/L (22-30); Chloride 108 mmol/L (98-107); Creatine Kinase 106 U/L (30-135); Glucose 111 mg/dL (74-99); LDH 636 U/L (313-618); Magnesium 1.9 mg/dL (1.6-2.3); Non-African American GFR(CKD) >90 (>60 ml/min/1.73 sqM); Sodium 137 mmol/L (137-145); Total Bilirubin 0.8 mg/dL (0.2-1.3); Total Protein 7.7 g/dL (6.3-8.2)
[2020-06-24 13:19] LABS: Potassium 4.3 mmol/L (3.5-5.1)
[2020-06-24] MEDS ORDERED: IPRATROPIUM-ALBUTEROL 3 ML NEB INHALATION PRN (14:39)
[2020-06-24] MEDS: SODIUM CHLORIDE 0.9% 1,000 ML IV SCH (14:48)
[2020-06-24] MEDS ORDERED: ALBUTEROL NEBULIZED 2.5 MG/3 ML INHALATION SCH (16:00)
--- NOTE | 2020-06-24 17:21 | P.CNPUL ---
History of Present Illness Consult date: 06/24/20 Requesting physician: Brad Bueno Reason for consult: dyspnea Chief complaint: Shortness of breath, chest tightness, wheezing History of present illness: This is a very pleasant 45-year-old female patient who follows with Dr. Ngo as her primary care provider. She has a history of migraine cephalgia, depression, lupus. She also has history of chronic moderate persistent bronchial asthma. She is a lifelong nonsmoker. She's been maintained on Wixela and albuterol in the outpatient setting. She has followed with Dr. Reyes in our office for the same. Over the past several days she has been having increased issues with shortness of breath, cough, congestion, chest tightness and wheezing. She presented here to the emergency room for the same. Chest x-ray reveals no acute pulmonary process. She is seen today in consultation in the emergency room. She is sitting up on the stretcher. Awake and alert in no acute distress. She is maintaining O2 saturations in the mid 90s on room air. She's been afebrile. White count 7.9. Hemoglobin 14.8. Sodium 137. Potassium 4.3. Bicarb 19. Creatinine 0.66. She's been given IV Solu-Medrol and DuoNeb inhalations without significant improvement. Review of Systems REVIEW OF SYSTEMS: CONSTITUTIONAL: Denies any recent significant weight loss or weight gain. EYES: Denies change in vision. EARS, NOSE, MOUTH, THROAT: Denies headaches, denies sore throat. CARDIOVASCULAR: Denies chest pain, palpitations or syncopal episodes. RESPIRATORY: Positive for shortness of breath, cough, congestion no hemoptysis. GASTROINTESTINAL: Denies change in appetite, denies abdominal pain GENITOURINARY: Denies hematuria, denies infections. MUSKULOSKELETAL: Denies pain, denies swelling. INTEGUMENTARY: Denies rash, denies eczema. NEUROLOGICAL: Denies recent memory loss, no recent seizure activity. PSYCHIATRIC: Denies anxiety, denies depression. HEMATOLOGIC/LYMPHATIC: Denies anemia, denies enlarged lymph nodes. Past Medical History Past Medical History: Asthma Additional Past Medical History / Comment(s): Bulging discs, Lupus, age 13 had concussion, migraines. History of Any Multi-Drug Resistant Organisms: None Reported Past Surgical History: Appendectomy, Cholecystectomy, Orthopedic Surgery, Tubal Ligation Additional Past Surgical History / Comment(s): D&C, bunionectomy, left knee meniscus repair, sinus surgery Past Anesthesia/Blood Transfusion Reactions: No Reported Reaction Additional Past Anesthesia/Blood Transfusion Reaction / Comment(s): Has never received blood. Past Psychological History: Depression Smoking Status: Never smoker Past Alcohol Use History: None Reported Past Drug Use History: None Reported - Past Family History Father History Unknown: Yes Additional Family Medical History / Comment(s): Pt stated she does'nt know her Dad well enough to know his hx. Mother Family Medical History: Fibromyalgia Additional Family Medical History / Comment(s): Pots Syndrome Daughter(s) Additional Family Medical History / Comment(s): Daughter has adrenal insufficiency. Medications and Allergies Home Medications Medication Instructions Recorded Confirmed Type Albuterol Sulfate [Proventil Hfa] 1 - 2 puff INHALATION RT-QID PRN 05/22/18 06/24/20 History Albuterol Nebulized [Ventolin 2.5 mg INHALATION RT-QID PRN 07/22/19 06/24/20 History Nebulized] Rizatriptan Odt [Maxalt CUPOLA OPERATOR INSULATION] 5 mg PO DAILY PRN 08/24/19 06/24/20 History Fluticasone Propion/Salmeterol 1 puff INHALATION RT-BID 10/18/19 06/24/20 History [Wixela 250-50 Inhub] Loratadine [Claritin] 10 mg PO HS 10/18/19 06/24/20 History Ibuprofen [Motrin] 800 mg PO TID PRN 06/24/20 06/24/20 History Allergies Allergy/AdvReac Type Severity Reaction Status Date / Time prochlorperazine AdvReac Muscle Verified 06/24/20 15:43 [From Compazine] Spasms Physical Exam Vitals: Vital Signs Temp Pulse Resp BP Pulse Ox 06/24/20 15:53 89 06/24/20 15:46 89 06/24/20 14:50 51 L 16 116/63 98 06/24/20 13:44 86 06/24/20 13:32 86 06/24/20 12:00 24 06/24/20 11:54 99.4 F 58 L 24 110/68 97 Intake and Output 06/24/20 06/24/20 06/24/20 06:59 14:59 22:59 Other: Weight 94.801 kg GENERAL EXAM: Alert, very pleasant 45-year-old female patient, on room air comfortable in no apparent distress. HEAD: Normocephalic. EYES: Normal reaction of pupils, equal size. NOSE: Clear with pink turbinates. THROAT: No erythema or exudates. NECK: No masses, no JVD. CHEST: No chest wall deformity. LUNGS: Equal air entry with bilateral end expiratory wheeze, diminished CVS: S1 and S2 normal with no audible murmur, regular rhythm. ABDOMEN: No hepatosplenomegaly, normal bowel sounds, no guarding or rigidity. SPINE: No scoliosis or deformity SKIN: No rashes CENTRAL NERVOUS SYSTEM: No focal deficits, tone is normal in all 4 extremities. EXTREMITIES: There is no peripheral edema. No clubbing, no cyanosis. Peripheral pulses are intact. Results - Laboratory Findings CBC and BMP: 06/24/20 12:39 06/24/20 12:39 PT/INR, D-dimer PT 10.0 sec (9.0-12.0) 06/24/20 12:39 INR 1.0 (<1.2) 06/24/20 12:39 Abnormal lab findings: Abnormal Labs 06/24/20 06/24/20 12:39 12:39 Hct 47.0 H Eosinophils # 0.8 H Chloride 108 H Carbon Dioxide 19 L Glucose 111 H Lactate Dehydrogenase 636 H - Diagnostic Findings Chest x-ray: image reviewed (No acute pulmonary process) Assessment and Plan Assessment: 1 Acute exacerbation of moderate persistent chronic bronchial asthma, w[place]ell virus by PCR pending 2 History of lupus 3 History of migraine cephalgia 4 History of depression Plan: The patient was seen and evaluated by Dr. Reyes Chest x-ray and labs reviewed Add Pulmicort and Perforomist inhalations twice a day DuoNeb inhalations 4 times a day and when necessary Solu-Medrol 60 mg IV every 6 hours W[place]ell virus testing pending Isolation precautions for now We'll continue to follow and make further recommendations based on her clinical status I, the cosigning physician, performed a history & physical examination of the patient. Lungs sounds with bilateral end expiratory wheeze, diminished. Maintaining good O2 saturations in the 90s on room air. I discussed the assessment and plan of care with my nurse practitioner, Radha Gordon. I attest to the above consultation as dictated by her. Time with Patient: Greater than 30
[2020-06-24] MEDS: IPRATROPIUM-ALBUTEROL 3 ML NEB INHALATION SCH ×2 (18:58→20:12)
[2020-06-24] MEDS: BUDESONIDE 1 MG/2 ML NEBU INHALATION SCH (20:24)
[2020-06-24] MEDS: FORMOTEROL FUMARATE 20 MCG/2 ML NEBU INHALATION SCH (20:24)
[2020-06-24 21:08] LABS: Ferritin 48.2 ng/mL (10.0-291.0)
[2020-06-24] MEDS: LORATADINE 10 MG TAB PO SCH (21:34)
[2020-06-24] MEDS: methylPREDNISolone SOD SUCCI 125 MG/2 ML VIAL IV SCH (21:34)
[2020-06-24] MEDS: IBUPROFEN 800 MG TAB PO PRN (21:56)
[2020-06-25] MEDS: methylPREDNISolone SOD SUCCI 125 MG/2 ML VIAL IV SCH ×3 (00:01→11:44)
[2020-06-25] MEDS: SODIUM CHLORIDE 0.9% 1,000 ML IV SCH ×3 (06:19→22:20)
[2020-06-25] MEDS: IPRATROPIUM-ALBUTEROL 3 ML NEB INHALATION SCH ×2 (07:53→11:33)
[2020-06-25] MEDS: BUDESONIDE 1 MG/2 ML NEBU INHALATION SCH (07:53)
[2020-06-25] MEDS: FORMOTEROL FUMARATE 20 MCG/2 ML NEBU INHALATION SCH (07:53)
[2020-06-25] MEDS: IBUPROFEN 800 MG TAB PO PRN (11:44)
[2020-06-25] MEDS ORDERED: ALBUTEROL HFA INHALER INHALATION PRN (12:06)
[2020-06-25] MEDS ORDERED: IPRATROPIUM-ALBUTEROL 3 ML NEB INHALATION SCH (13:00)
--- NOTE | 2020-06-25 15:47 | P.PN ---
Subjective Progress Note Date: 06/25/20 Principal diagnosis: Acute exacerbation of moderate persistent chronic bronchial asthma, CoVID 19 screen pending This is a very pleasant 45-year-old female patient who follows with Dr. Ngo as her primary care provider. She has a history of migraine cephalgia, depression, lupus. She also has history of chronic moderate persistent bronchial asthma. She is a lifelong nonsmoker. She's been maintained on Wixela and albuterol in the outpatient setting. She has followed with Dr. Reyes in our office for the same. Over the past several days she has been having increased issues with shortness of breath, cough, congestion, chest tightness and wheezing. She presented here to the emergency room for the same. Chest x-ray reveals no acute pulmonary process. She is seen today in consultation in the emergency room. She is sitting up on the stretcher. Awake and alert in no acute distress. She is maintaining O2 saturations in the mid 90s on room air. She's been afebrile. White count 7.9. Hemoglobin 14.8. Sodium 137. Potassium 4.3. Bicarb 19. Creatinine 0.66. She's been given IV Solu-Medrol and DuoNeb inhalations without significant improvement. The patient is seen today 06/25/2020 in follow-up on the regular medical floor. She is currently sitting up in bed. Awake and alert in no acute distress. Breathing quite a bit easier today compared to yesterday. Not quite back to her baseline. Maintaining good O2 saturations in the mid 90s on room air. She's afebrile. Hemodynamically stable. She is continued on Symbicort, albuterol and IV Solu-Medrol. Objective - Vital Signs Vital signs: Vital Signs Temp 97.8 F 06/25/20 07:00 Pulse 69 06/25/20 11:45 Resp 20 06/25/20 07:00 BP 124/75 06/25/20 07:00 Pulse Ox 96 06/25/20 07:00 Intake & Output 06/24/20 06/25/20 06/25/20 18:59 06:59 18:59 Intake Total 450 300 Balance 450 300 Weight 94.801 kg Intake: Intake, IV Titration 150 Amount Sodium Chloride 0.9% 1, 150 000 ml @ 100 mls/hr IV . Q10H [facility] Rx#:[id number] Oral 300 300 Other: Voiding Method Toilet # Voids 2 3 - Exam GENERAL EXAM: Alert, pleasant 45-year-old female patient, on room air comfortable in no apparent distress. HEAD: Normocephalic. EYES: Normal reaction of pupils, equal size. NOSE: Clear with pink turbinates. THROAT: No erythema or exudates. NECK: No masses, no JVD. CHEST: No chest wall deformity. LUNGS: Equal air entry with end expiratory wheeze, diminished. CVS: S1 and S2 normal with no audible murmur, regular rhythm. ABDOMEN: No hepatosplenomegaly, normal bowel sounds, no guarding or rigidity. SPINE: No scoliosis or deformity SKIN: No rashes CENTRAL NERVOUS SYSTEM: No focal deficits, tone is normal in all 4 extremities. EXTREMITIES: There is no peripheral edema. No clubbing, no cyanosis. Peripheral pulses are intact. - Labs CBC & Chem 7: 06/24/20 12:39 06/24/20 12:39 Assessment and Plan Assessment: 1 Acute exacerbation of moderate persistent chronic bronchial asthma, waddell virus by PCR pending 2 History of lupus 3 History of migraine cephalgia 4 History of depression Plan: The patient was seen and evaluated by Dr. Reyes Continue current treatment plan Waddell virus testing pending Isolation precautions for now Probable discharge in the a.m. We'll continue to follow and make further recommendations based on her clinical status I, the cosigning physician, performed a history & physical examination of the patient. Lungs sounds with bilateral end expiratory wheeze, diminished. Maintaining good O2 saturations in the 90s on room air. I discussed the assessment and plan of care with my nurse practitioner, Radha Gordon. I attest to the above consultation as dictated by her.
[2020-06-25] MEDS: ALBUTEROL HFA INHALER INHALATION SCH ×2 (16:31→19:43)
[2020-06-25] MEDS: SYMBICORT 160-4.5 MCG INHALER INHALATION SCH (19:44)
--- NOTE | 2020-06-25 19:47 | P.HPIM ---
History of Present Illness H&P Date: 06/25/20 Chief Complaint: Short of breath History of presenting complaint This is a very pleasant 45-year-old patient of Dr. Ngo. Chronic stable medical conditions include herniated disc, depression, obesity. Patient is a long-standing history of asthma. Patient symptoms have been getting worse the last 2 weeks. Shortness of breath increasing wheezing. Much worse in the last 3 days. Using more frequent nebulizers. Has a cough. No sputum production. Significant wheezing. Appetite is fair. No fever no chills. Review of systems: GEN.: None EYES: None HEENT: None NECK: None RESPIRATORY: As above CARDIOVASCULAR: None GASTROINTESTINAL: None GENITOURINARY: None MUSCULOSKELETAL: None LYMPHATICS: None HEMATOLOGICAL: None PSYCHIATRY: None NEUROLOGICAL: None Past medical history to include: Depression, 102 dose, obesity, asthma, questionable lupus Physical examination: VITAL SIGNS: 99.4, 58, 24, 110/60, 97% room air-old presentation GENERAL: Sitting up in bed, not in distress EYES: Pupils equal. Conjunctiva normal. HEENT: External appearance of nose and ears normal, oral cavity grossly normal. NECK: JVD not raised; masses not palpable. HEART: First and second heart sounds are normal; no edema. LUNGS:[ Respiratory rate increased, decreased breath sounds. Prolonged expiration ABDOMEN: Soft, nontender, liver spleen not palpable, no masses palpable. PSYCH: Alert and oriented x3; mood and affect normal. NEUROLOGICAL: Cranial nerves grossly intact. Power sensation grossly intact. INVESTIGATIONS, reviewed in the clinical context: White count 7.9 hemoglobin 14.8 platelets 339 potassium 4.3 creatinine 0.66 EKG tracing personally reviewed by me shows sinus tachycardia with PVC and nonspecific T-wave changes Chest x-ray film personally reviewed by me-lung hickman clear Assessment: -Acute exacerbation of moderate persistent asthma -Obesity BMI 34. 8 -Eosinophilia Plan: Patient placed on bronchodilators, IV steroids. Home medications to be continued. Lovenox for DVT prophylaxis. Discussed with the patient. Pulmonary consulted Past Medical History Past Medical History: Asthma Additional Past Medical History / Comment(s): Bulging discs, Lupus, age 13 had concussion, migraines. History of Any Multi-Drug Resistant Organisms: None Reported Past Surgical History: Appendectomy, Cholecystectomy, Orthopedic Surgery, Tubal Ligation Additional Past Surgical History / Comment(s): D&C, bunionectomy, left knee meniscus repair, sinus surgery Past Anesthesia/Blood Transfusion Reactions: No Reported Reaction Additional Past Anesthesia/Blood Transfusion Reaction / Comment(s): Has never received blood. Past Psychological History: Depression Smoking Status: Never smoker Past Alcohol Use History: None Reported Past Drug Use History: None Reported - Past Family History Father History Unknown: Yes Additional Family Medical History / Comment(s): Pt stated she does'nt know her Dad well enough to know his hx. Mother Family Medical History: Fibromyalgia Additional Family Medical History / Comment(s): Pots Syndrome Daughter(s) Additional Family Medical History / Comment(s): Daughter has adrenal insufficiency. Medications and Allergies Home Medications Medication Instructions Recorded Confirmed Type Albuterol Sulfate [Proventil Hfa] 1 - 2 puff INHALATION RT-QID PRN 05/22/18 06/24/20 History Albuterol Nebulized [Ventolin 2.5 mg INHALATION RT-QID PRN 07/22/19 06/24/20 History Nebulized] Rizatriptan Odt [Maxalt WAITER/WAITRESS TAKE OUT] 5 mg PO DAILY PRN 08/24/19 06/24/20 History Fluticasone Propion/Salmeterol 1 puff INHALATION RT-BID 10/18/19 06/24/20 History [Wixela 250-50 Inhub] Loratadine [Claritin] 10 mg PO HS 10/18/19 06/24/20 History Ibuprofen [Motrin] 800 mg PO TID PRN 06/24/20 06/24/20 History Allergies Allergy/AdvReac Type Severity Reaction Status Date / Time prochlorperazine AdvReac Muscle Verified 06/24/20 15:43 [From Compazine] Spasms Physical Exam Vitals: Vital Signs Temp Pulse Pulse Resp BP BP Pulse Ox 06/25/20 08:07 66 06/25/20 08:05 68 06/25/20 07:53 64 06/25/20 07:00 97.8 F 64 20 124/75 96 06/25/20 04:51 68 06/25/20 01:05 98.1 F 58 L 18 112/66 96 06/24/20 23:07 114 H 20 06/24/20 21:14 98.2 F 114 H 20 117/74 96 06/24/20 20:43 100 06/24/20 20:27 100 06/24/20 20:26 100 06/24/20 20:12 101 H 06/24/20 19:30 98.1 F 16 06/24/20 17:00 98.7 F 100 18 122/89 96 06/24/20 16:00 18 06/24/20 15:53 89 06/24/20 15:46 89 06/24/20 14:50 51 L 16 116/63 98 06/24/20 13:44 86 06/24/20 13:32 86 06/24/20 12:00 24 06/24/20 11:54 99.4 F 58 L 24 110/68 97 Intake and Output 06/24/20 06/25/20 06/25/20 22:59 06:59 14:59 Intake Total 450 Balance 450 Intake: Intake, IV Titration 150 Amount Sodium Chloride 0.9% 1, 150 000 ml @ 100 mls/hr IV . Q10H [facility] Rx#:[id number] Oral 300 Other: Voiding Method Toilet # Voids 1 2 Weight 94.801 kg Results CBC & Chem 7: 06/24/20 12:39 06/24/20 12:39 Labs: Abnormal Lab Results - Last 24 Hours (Table) 06/24/20 06/24/20 Range/Units 12:39 12:39 Hct 47.0 H (34.0-46.0) % Eosinophils # 0.8 H (0-0.7) k/uL Chloride 108 H (98-107) mmol/L Carbon Dioxide 19 L (22-30) mmol/L Glucose 111 H (74-99) mg/dL Lactate Dehydrogenase 636 H (313-618) U/L Thrombosis Risk Factor Assmnt - Choose All That Apply Each Factor Represents 1 point: Age 41-60 years, Serious lung disease incl. pneumonia (< 1month) Other congenital or acquired thrombophilia - If yes, enter type in comment: No Thrombosis Risk Factor Assessment Total Risk Factor Score: 2 Thrombosis Risk Factor Assessment Level: Low Risk
[2020-06-25] MEDS ORDERED: SUMAtriptan succinate 50 MG TAB PO PRN (19:59)
[2020-06-25] MEDS ORDERED: ENOXAPARIN 40 MG/0.4 ML SYRINGE SQ SCH (21:00)
[2020-06-25] MEDS: LORATADINE 10 MG TAB PO SCH (22:09)
[2020-06-25] MEDS: methylPREDNISolone SOD SUCCI 40 MG/ML 1 ML VIAL IV SCH (22:09)
[2020-06-26] MEDS: methylPREDNISolone SOD SUCCI 40 MG/ML 1 ML VIAL IV SCH ×2 (04:00→11:55)
[2020-06-26 07:45] VITALS: BP 117/66; RESP 22; TEMP 97.9
[2020-06-26] MEDS: ALBUTEROL HFA INHALER INHALATION SCH ×2 (08:04→11:30)
[2020-06-26] MEDS: SYMBICORT 160-4.5 MCG INHALER INHALATION SCH (08:04)
[2020-06-26] MEDS: SODIUM CHLORIDE 0.9% 1,000 ML IV SCH (08:11)
[2020-06-26] MEDS ORDERED: IPRATROPIUM-ALBUTEROL 3 ML NEB INHALATION PRN (11:12)
[2020-06-26 11:46] VITALS: PULSE 100
--- NOTE | 2020-06-26 14:11 | P.PN ---
Subjective Progress Note Date: 06/26/20 Principal diagnosis: Acute exacerbation of moderate persistent chronic bronchial asthma, CoVID 19 screen pending This is a very pleasant 45-year-old female patient who follows with Dr. Ngo as her primary care provider. She has a history of migraine cephalgia, depression, lupus. She also has history of chronic moderate persistent bronchial asthma. She is a lifelong nonsmoker. She's been maintained on Wixela and albuterol in the outpatient setting. She has followed with Dr. Reyes in our office for the same. Over the past several days she has been having increased issues with shortness of breath, cough, congestion, chest tightness and wheezing. She presented here to the emergency room for the same. Chest x-ray reveals no acute pulmonary process. She is seen today in consultation in the emergency room. She is sitting up on the stretcher. Awake and alert in no acute distress. She is maintaining O2 saturations in the mid 90s on room air. She's been afebrile. White count 7.9. Hemoglobin 14.8. Sodium 137. Potassium 4.3. Bicarb 19. Creatinine 0.66. She's been given IV Solu-Medrol and DuoNeb inhalations without significant improvement. The patient is seen today 06/25/2020 in follow-up on the regular medical floor. She is currently sitting up in bed. Awake and alert in no acute distress. Breathing quite a bit easier today compared to yesterday. Not quite back to her baseline. Maintaining good O2 saturations in the mid 90s on room air. She's afebrile. Hemodynamically stable. She is continued on Symbicort, albuterol and IV Solu-Medrol. The patient is seen today 06/26/2020 in follow-up on the regular medical floor. She is awake and alert in no acute distress. Nearly back to her baseline. Some dyspnea on minimal exertion. Some dry nonproductive cough. She continues to maintain good O2 saturations in the 90s on room air. She's afebrile. She is anxious to go home. Objective - Vital Signs Vital signs: Vital Signs Temp 97.9 F 06/26/20 07:00 Pulse 100 06/26/20 11:45 Resp 22 06/26/20 07:00 BP 117/66 06/26/20 07:00 Pulse Ox 97 06/26/20 02:36 Intake & Output 06/25/20 06/26/20 06/26/20 18:59 06:59 18:59 Intake Total 300 700 Balance 300 700 Intake: Intake, IV Titration 400 Amount Sodium Chloride 0.9% 1, 400 000 ml @ 100 mls/hr IV . Q10H [facility] Rx#:[id number] Oral 300 300 Other: Voiding Method Toilet # Voids 3 4 - Exam GENERAL EXAM: Alert, pleasant 45-year-old female patient, on room air, comfortable in no apparent distress. HEAD: Normocephalic. EYES: Normal reaction of pupils, equal size. NOSE: Clear with pink turbinates. THROAT: No erythema or exudates. NECK: No masses, no JVD. CHEST: No chest wall deformity. LUNGS: Equal air entry with no crackles, rhonchi or wheeze. CVS: S1 and S2 normal with no audible murmur, regular rhythm. ABDOMEN: No hepatosplenomegaly, normal bowel sounds, no guarding or rigidity. SPINE: No scoliosis or deformity SKIN: No rashes CENTRAL NERVOUS SYSTEM: No focal deficits, tone is normal in all 4 extremities. EXTREMITIES: There is no peripheral edema. No clubbing, no cyanosis. Periphera l pulses are intact. - Labs CBC & Chem 7: 06/24/20 12:39 06/24/20 12:39 Assessment and Plan Assessment: 1 Acute exacerbation of moderate persistent chronic bronchial asthma, cruz virus by PCR pending 2 History of lupus 3 History of migraine cephalgia 4 History of depression Plan: The patient was seen and evaluated by Dr. Reyes Cleared for discharge from the pulmonary standpoint Complete a prednisone taper Continue her home inhalers Continue self isolation until CoVID test results Follow-up in the office in 1-2 weeks' time I, the cosigning physician, performed a history & physical examination of the patient. Lungs sounds with bilateral end expiratory wheeze, diminished. Maintaining good O2 saturations in the 90s on room air. I discussed the assessment and plan of care with my nurse practitioner, Radha Gordon. I attest to the above consultation as dictated by her.
--- NOTE | 2020-06-26 21:48 | P.DS ---
Providers Date of admission: 06/26/20 12:45 Expected date of discharge: 06/26/20 Attending physician: Brad Bueno Consults: 06/24/20 14:39 Consult Physician Routine Consulting Provider: Malu Reyes Reason/Comments: copd Do you want consulting provider notified?: Yes Primary care physician: Sh[facility] Course: Chief Complaint: Short of breath History of presenting complaint This is a very pleasant 45-year-old patient of Dr. Ngo. Chronic stable medical conditions include herniated disc, depression, obesity. Patient is a long-standing history of asthma. Patient symptoms have been getting worse the last 2 weeks. Shortness of breath increasing wheezing. Much worse in the last 3 days. Using more frequent nebulizers. Has a cough. No sputum production. Significant wheezing. Appetite is fair. No fever no chills. Admitted with asthma exacerbation. Treated with bronchodilators and steroids. Responded much well. COVID 19 testing was pending. [place] to be unlikely. Cleared by Dr. Bae Consultation: Dr. Reyes from pulmonary Physical examination: VITAL SIGNS: 37.9, 96, 22, 117/66, 97% room air GENERAL: Sitting up in bed, comfortable EYES: Pupils equal. Conjunctiva normal. NECK: JVD not raised; masses not palpable. HEART: First and second heart sounds are normal; no edema. LUNGS:[ Respiratory rate normal, improved air entry ABDOMEN: Soft, nontender, liver spleen not palpable, no masses palpable. INVESTIGATIONS, reviewed in the clinical context: White count 7.9 hemoglobin 14.8 platelets 339 potassium 4.3 creatinine 0.66 EKG tracing personally reviewed by me shows sinus tachycardia with PVC and nonspecific T-wave changes Chest x-ray film personally reviewed by me-lung hickman clear Assessment: -Acute exacerbation of moderate persistent asthma -Obesity BMI 34. 8 -Eosinophilia Disposition: Home Patient Condition at Discharge: Good Plan - Discharge Summary Discharge Rx Participant: Yes New Discharge Prescriptions: New predniSONE 10 mg PO DAILY #30 tab Continue Albuterol Sulfate [Proventil Hfa] 1 - 2 puff INHALATION RT-QID PRN PRN Reason: Shortness Of Breath Albuterol Nebulized [Ventolin Nebulized] 2.5 mg INHALATION RT-QID PRN PRN Reason: Shortness Of Breath Rizatriptan Odt [Maxalt FILTER TENDER JELLY] 5 mg PO DAILY PRN PRN Reason: Migraine Headache Fluticasone Propion/Salmeterol [Wixela 250-50 Inhub] 1 puff INHALATION RT-BID Ibuprofen [Motrin] 800 mg PO TID PRN PRN Reason: Pain Changed Loratadine [Claritin] 5 mg PO BID #0 Discharge Medication List Albuterol Sulfate [Proventil Hfa] 1 - 2 puff INHALATION RT-QID PRN 05/22/18 [History] Albuterol Nebulized [Ventolin Nebulized] 2.5 mg INHALATION RT-QID PRN 07/22/19 [History] Rizatriptan Odt [Maxalt FILTER TENDER JELLY] 5 mg PO DAILY PRN 08/24/19 [History] Fluticasone Propion/Salmeterol [Wixela 250-50 Inhub] 1 puff INHALATION RT-BID 10/18/19 [History] Ibuprofen [Motrin] 800 mg PO TID PRN 06/24/20 [History] Loratadine [Claritin] 5 mg PO BID #0 06/26/20 [Rx] predniSONE 10 mg PO DAILY #30 tab 06/26/20 [Rx] Follow up Appointment(s)/Referral(s): Malu Reyes MD [STAFF PHYSICIAN] - 1 Week Shakeel Ngo MD [Primary Care Provider] - 1-2 days Patient Instructions/Handouts: Asthma (ED) Discharge Disposition: HOME SELF-CARE
== END 2020-06-26 13:11 | disposition home or self-care (01) ==
LOC: EC 11:52 → 6NMEDSUR 14:39 → 4SSUR 19:50 → INTOOBSV 06-26 12:45 → OBSVTOIN 06-26 12:45 → UNDODISIN 06-26 13:11
PROVIDERS: ADMIT Hospitalist; ATTEND Hospitalist
DX: J45.42 Moderate persistent asthma with status asthmaticus (principal); D72.10 Eosinophilia, unspecified; G43.909 Migraine, unspecified, not intractable, without status migrainosus; Z90.49 Acquired absence of other specified parts of digestive tract; Z20.828 Contact with and (suspected) exposure to other viral communicable diseases; Z98.51 Tubal ligation status; Z98.890 Other specified postprocedural states; Z87.820 Personal history of traumatic brain injury; F32.9 Major depressive disorder, single episode, unspecified; Z82.0 Family history of epilepsy and other diseases of the nervous system; Z82.49 Family history of ischemic heart disease and other diseases of the circulatory system; Z83.49 Family history of other endocrine, nutritional and metabolic diseases; E66.9 Obesity, unspecified; Z68.34 Body mass index [BMI] 34.0-34.9, adult; M32.9 Systemic lupus erythematosus, unspecified; Z79.52 Long term (current) use of systemic steroids; Z79.899 Other long term (current) drug therapy; Z88.8 Allergy status to other drugs, medicaments and biological substances
CPT/HCPCS: 96376 ×3; 96361 ×3; 96372; 96374; 99285; 36415; 94640 ×5; 93005; 83880; 80053; 82728; 82550; 83605; 83615; 83735; 84484; 85025; 85610; 85730; 86140; 71046; G0378 ×4; U0003; J2920 ×2; J2930 ×2; J1650

== ENCOUNTER → 2021-12-27 | Outpatient (CLI) | payer OTHER ==
[2021-12-27 15:10] LABS: C Reactive Protein 0.7 mg/dL (0.00-0.80)
[2021-12-28 15:07] LABS: IgG - CSF 1.6 mg/dL (0.0 - 3.4); IgG/Albumin Index (CSF) 0.44 (0.00 - 0.77); Immunoglobulin G 908 mg/dL (700 - 1600)
== END | disposition home or self-care (01) ==
LOC: LABWHC1 08:35
PROVIDERS: ATTEND Nurse Practitioner Family
DX: E55.9 Vitamin D deficiency, unspecified (principal); R90.82 White matter disease, unspecified; R53.83 Other fatigue
CPT/HCPCS: 36415; 82040; 82042; 82306; 82607; 82784; 83916; 86140

== ENCOUNTER 2023-09-27 09:33 | Day surgery (SDC) | payer OTHER ==
[2023-09-25 09:48] VITALS: BMI 33.6
[~2023-09-27 09:33] MED LIST changes: -DEXAMETHASONE SOD PHOSPHATE 10 MG/ML 1 ML VIAL IV ONE; -HEPARIN SODIUM,PORCINE 5,000 UNIT/ML 1 ML VIAL SQ ONE; -LACTATED RINGERS 1,000 ML IV SCH; +LIDOCAINE 1% (10MG/ML) FOR IV START INTRADERMA PRN; -MIDAZOLAM 2 MG/2 ML VIAL IV PRN; -ONDANSETRON 4 MG/2 ML VIAL IVP ONE; -SCOPOLAMINE 1.5MG/72HR PATCH TRANSDERM ONE; -ceFAZolin IN SWFI 2 GM/20 ML SYRINGE IVP ONE
[2023-09-27] MEDS: LACTATED RINGERS 1,000 ML IV SCH (10:01)
[2023-09-27 10:13] VITALS: RESP 16; TEMP 97.4
[2023-09-27] MEDS ORDERED: PROPOFOL 10 MG/ML 20 ML VIAL IV ONE (11:07)
[2023-09-27] MEDS ORDERED: LIDOCAINE 1% INJ 10MG/ML (20 ML MDV) ONE (11:07)
--- NOTE | 2023-09-27 11:20 | P.PCN ---
Date of Procedure: 09/27/23 Procedure(s) Performed: BRIEF HISTORY: Patient is a 48-year-old, pleasant, white female scheduled for an upper endoscopy as a part of evaluation of chronic epigastric pain for the last 2 years duration. She was diagnosed with H. pylori infection on serological testing and was treated with antibiotics but still continues to have persistent pain and hence scheduled for an upper endoscopy to evaluate further. She is been on omeprazole 20 mg daily for 2 months.. PROCEDURE PERFORMED: Esophagogastroduodenoscopy with biopsy. PREOPERATIVE DIAGNOSIS: Chronic epigastric pain. IV sedation per anesthesia. PROCEDURE: After informed consent was obtained, the patient was brought into the endoscopy unit. IV sedation was administered by Anesthesia under continuous monitoring. Initially the Olympus GIF-140 video endoscope was inserted into the mouth. Esophagus intubated without any difficulty. It was gradually advanced into the stomach and duodenum and carefully examined. The bulb and the second part of the duodenum appeared normal. The scope at this time was withdrawn to the stomach, adequately insufflated with air, and upon careful examination, mucosa of the antrum, had mild gastritis and biopsies were done from this area. Mucosa of the body, cardia and the fundus appeared normal. The scope was then withdrawn into the esophagus. Small sliding type hiatal hernia noted. The GE junction was located at 39 cm from the incisors. The esophagus appeared normal. There were no erosions or ulcerations seen and biopsies were done from the distal esophagus and the patient tolerated the procedure well. IMPRESSION: 1. Mild antral gastritis. 2. Small hiatal hernia but no runs of esophagitis or peptic ulcer disease. RECOMMENDATIONS: The findings of this examination were discussed with the patient as well as a family. She was advised to follow with the biopsy results. Continue with omeprazole 20 mg daily and follow antireflux measures..
[2023-09-27 11:44] VITALS: BP 113/74; PULSE 48
== END 2023-09-27 11:53 | disposition home or self-care (01) ==
LOC: ORWHC2ENDO 09:33
PROVIDERS: ATTEND Internal Medicine Gastroenterology
DX: K29.50 Unspecified chronic gastritis without bleeding (principal); K31.A11 Gastric intestinal metaplasia without dysplasia, involving the antrum; K44.9 Diaphragmatic hernia without obstruction or gangrene; G89.29 Other chronic pain; J45.909 Unspecified asthma, uncomplicated; G43.909 Migraine, unspecified, not intractable, without status migrainosus; M32.9 Systemic lupus erythematosus, unspecified; Z79.899 Other long term (current) drug therapy; Z79.51 Long term (current) use of inhaled steroids; Z88.8 Allergy status to other drugs, medicaments and biological substances
CPT/HCPCS: 81025; 88305; 88342; 43239; J2001; J2704

== ENCOUNTER → 2023-12-05 | Outpatient (CLI) | payer OTHER ==
[2023-12-05 21:08] LABS: Gliadin AB IgA, Deaminated Negative (Negative); Gliadin AB IgA, Unit <0.5 U/mL; Gliadin AB IgG, Deaminated Negative (Negative); Gliadin AB IgG, Unit <0.4 U/mL
== END | disposition home or self-care (01) ==
LOC: LABWHC1 13:51
PROVIDERS: ATTEND Internal Medicine Gastroenterology
DX: A04.8 Other specified bacterial intestinal infections (principal); K52.9 Noninfective gastroenteritis and colitis, unspecified
CPT/HCPCS: 36415; 83516

== ENCOUNTER → 2023-12-06 | Outpatient (CLI) | payer OTHER ==
--- NOTE | 2023-12-07 20:47 | MM ---
Reason for Exam: Screening (asymptomatic). Last mammogram was performed 4 year(s) and 11 month(s) ago. Patient History: Menarche at age 13. First Full-Term at age 29. Patient used Hormonal Contraceptives for 5 years. Last menstrual period: 11/30/2023 Risk Values: Stephany 5 year model risk: 1.0%. NCI Lifetime model risk: 10.3%. Prior Study Comparison: 12/26/2018 Bilateral Screening Mammogram, [facility]. Tissue Density: The breasts are extremely dense, which lowers the sensitivity of mammography. Findings: Analyzed By CAD. The pattern is symmetrical. There is a 1.2 cm rounded area within the upper left MLO view. This is enlarged over the interval. Additional workup is recommended. Posterior rounded densities in the outer left posterior breast. This may be an intramammary lymph node. Additional workup is recommended. Right breast:No suspicious groups of microcalcifications, spiculated or lobular masses, architectural distortion or other secondary signs of malignancy are mammographically apparent. Overall Assessment: Incomplete: need additional imaging evaluation, BI-RAD 0 Management: Diagnostic Mammogram of the left breast. Diagnostic Breast Ultrasound of the left breast. A negative mammogram report should not preclude additional follow up of suspicious palpable abnormalities. Patient should continue monthly self breast exam. A clinical breast exam by your physician is recommended on an annual basis and results should be correlated with mammographic findings. Note on Stephany scores and lifetime risk: 1. A Stephany score greater than 3% is considered moderate risk. If this is the case, consider specialist referral to assess eligibility for a risk reducing agent. 2. If overall lifetime risk for the development of breast cancer is 20% or higher, the patient may qualify for future screening with alternating mammogram and breast MRI. Electronically signed and approved by: David Calvert D.O. Radiologis
== END | disposition home or self-care (01) ==
LOC: RADMAMWWP 11:30
PROVIDERS: ATTEND Family Medicine
DX: Z12.31 Encounter for screening mammogram for malignant neoplasm of breast (principal)
CPT/HCPCS: 77067

== ENCOUNTER → 2023-12-29 | Outpatient (CLI) | payer OTHER ==
--- NOTE | 2024-01-01 07:35 | MM ---
Reason for Exam: Additional evaluation requested from abnormal screening. Last screening mammogram was performed less than 1 month ago. Patient History: Menarche at age 13. First Full-Term at age 29. Patient used Hormonal Contraceptives for 5 years. Risk Values: Stephany 5 year model risk: 1.0%. NCI Lifetime model risk: 10.3%. Prior Study Comparison: 12/26/2018 Bilateral Screening Mammogram, [facility]. 12/06/2023 Bilateral MG screening mammo w CAD, [facility]. Tissue Density: Left: The breasts are heterogeneously dense, which may obscure small masses. Findings: Analyzed By CAD. There is persistent nodule in the posterior aspect of the left breast in the upper outer quadrant as well as the upper left breast upon compression. Overall Assessment: Incomplete: need additional imaging evaluation, BI-RAD 0 Management: Diagnostic Breast Ultrasound of the left breast. Results were given to the patient verbally at the time of exam. Patient should continue monthly self-breast exams. A clinical breast exam by your physician is recommended on an annual basis. This exam should not preclude additional follow-up of suspicious palpable abnormalities. Note on Stephany scores and lifetime risk: 1. A Stephany score greater than 3% is considered moderate risk. If this is the case, consider specialist referral to assess eligibility for a risk reducing agent. 2. If overall lifetime risk for the development of breast cancer is 20% or higher, the patient may qualify for future screening with alternating mammogram and breast MRI. Electronically signed and approved by: Moshe Gillespie M.D. Radiologis
--- NOTE | 2024-01-01 07:36 | USB ---
Reason for Exam: Additional evaluation requested from abnormal screening. Patient History: Menarche at age 13. First Full-Term at age 29. Patient used Hormonal Contraceptives for 5 years. Risk Values: Stephany 5 year model risk: 1.0%. NCI Lifetime model risk: 10.3%. Technique: Method: Targeted. Prior Study Comparison: 12/26/2018 Bilateral Screening Mammogram, [facility]. 12/06/2023 Bilateral MG screening mammo w CAD, [facility]. Findings: The upper outer quadrant of the left breast, the axilla of the left breast and the retroareolar of the left breast were scanned. Targeted ultrasound upper outer quadrant left breast 12:00 to 3:00 including scanning of subareolar region and axilla. * At the 3:00 position, a 10 mm from the nipple, there is a benign cyst measuring 13 x 10 x 4 mm, possible mammographic correlate. * Benign lymph node in the axilla. * No other solid or cystic lesion. Overall Assessment: Probably benign, BI-RAD 3 Management: Diagnostic Mammogram of the left breast in 6 months. A clinical breast exam by your physician is recommended on an annual basis and results should be correlated with mammographic findings. This exam should not preclude additional follow-up of suspicious palpable abnormalities. Results were given to the patient verbally at the time of exam. Electronically signed and approved by: Aimee Rivers M.D. Radiologist
== END | disposition home or self-care (01) ==
LOC: RADMAMWWP 13:32
PROVIDERS: ATTEND Family Medicine
DX: N60.02 Solitary cyst of left breast (principal); R92.332 Mammographic heterogeneous density, left breast
CPT/HCPCS: 77065; 76642; G0279; 77061

== ENCOUNTER → 2024-01-03 | Outpatient (CLI) | payer OTHER ==
[2024-01-03 14:53] LABS: BUN/Creat Ratio 11.38 Ratio (12.00-20.00); Blood Urea Nitrogen 9.1 mg/dL (9.0-27.0); Calcium 9.1 mg/dL (8.7-10.3); Carbon Dioxide 21.9 mmol/L (21.6-31.8); Chloride 108 mmol/L (96-109); Glucose 100 mg/dL (70-110); Potassium 4.2 mmol/L (3.5-5.5); Sodium 142 mmol/L (135-145)
== END | disposition home or self-care (01) ==
LOC: LABWHC1 10:42
PROVIDERS: ATTEND Internal Medicine Cardiovascular Disease
DX: I49.3 Ventricular premature depolarization (principal)
CPT/HCPCS: 36415; 80048; 84443

== ENCOUNTER 2024-01-19 12:32 | Day surgery (SDC) | payer OTHER ==
[2024-01-17 12:39] VITALS: BMI 34.2
[2024-01-19 13:21] VITALS: TEMP 98.1
[2024-01-19] MEDS: LACTATED RINGERS 1,000 ML IV SCH (13:30)
[2024-01-19] MEDS: IV FLUID CONTINUATION 1,000 ML IV ONE ×2 (13:30→14:17)
[2024-01-19] MEDS ORDERED: PROPOFOL 10 MG/ML 20 ML VIAL IV ONE (14:30)
--- NOTE | 2024-01-19 14:46 | P.PCN ---
Date of Procedure: 01/19/24 Procedure(s) Performed: BRIEF HISTORY: Patient is a 48-year-old pleasant white female scheduled for an elective colonoscopy as a part of evaluation of chronic diarrhea for the last several months duration. She has been having 3-4 loose watery bowel movements daily but no blood or mucus in the stool. PROCEDURE PERFORMED: Colonoscopy with random biopsies. PREOPERATIVE DIAGNOSIS: Chronic diarrhea. IV sedation per Anesthesia. PROCEDURE: After informed consent was obtained, the patient, was brought into the endoscopy unit. IV sedation was administered by Anesthesia under continuous monitoring. Digital rectal examination was normal. Initially the Olympus CF-160 flexible video colonoscope was then inserted in the rectum, gradually advanced into the cecum without any difficulty. Careful examination was performed as the scope was gradually being withdrawn. Ileocecal valve and the appendiceal orifice were visualized and appeared normal. Prep was excellent. Mucosa of the cecum, ascending colon, transverse colon, descending colon, sigmoid colon, and rectum appeared normal. Random biopsies were done from the ascending and descending colon to rule out microscopic/collagenous colitis. Retroflexion was performed in the rectum and no lesions were seen. The patient tolerated the procedure well . IMPRESSION: Normal-appearing colon from rectum to cecum with no evidence of colorectal neoplasia. RECOMMENDATIONS: Findings of this examination were discussed with the patient as well as her family. She was advised to follow-up with the biopsy results. Follow-up in the office in 2 to 3 weeks..
[2024-01-19 15:06] VITALS: BP 119/82; PULSE 82; RESP 16
== END 2024-01-19 15:19 | disposition home or self-care (01) ==
LOC: ORWHC2ENDO 12:32
PROVIDERS: ATTEND Internal Medicine Gastroenterology
DX: K52.9 Noninfective gastroenteritis and colitis, unspecified (principal); J45.909 Unspecified asthma, uncomplicated; F32.A Depression, unspecified; G43.909 Migraine, unspecified, not intractable, without status migrainosus; M32.9 Systemic lupus erythematosus, unspecified; K21.9 Gastro-esophageal reflux disease without esophagitis; Z79.51 Long term (current) use of inhaled steroids; Z79.899 Other long term (current) drug therapy; Z88.1 Allergy status to other antibiotic agents
CPT/HCPCS: 81025; 88305; 45380; J2704